=== PATIENT | male | born 1940 | race Caucasian/White ===

== ENCOUNTER 2016-09-01 07:08 | Inpatient (IN) | payer MEDICARE, OTHER ==
[2016-09-01] VITALS (15 sets, daily range): BP systolic 105–132; BP diastolic 34–66; PULSE 32–59; RESP 15–20; TEMP 97.4–98.3; O2SAT 90–99
[~2016-09-01] VITALS: Ht 175.3 cm; Wt 96.3 kg
[~2016-09-01 07:08] MED LIST: CYAN1000P IM; FURO1TAB60 PO; HYDR25TA5 PO; KLYTECL PO; LEVO.05 PO; LISI-515 PO; METF1000 PO; METO25TA3 PO; OXYGENTANK NAS.CANULA; PANT40TA3 PO; PRAD150C PO; SIMVPOW PO
[2016-09-01] MEDS ORDERED: SODIUM CHLOR 0.9% 1000 ML INJ 1,000 ML IV SCH (07:45)
[2016-09-01 08:35] LABS: AUTOMATED NEUTROPHIL # 6.9 TH/MM3 (1.8-7.7); BASOPHIL # 0.1 TH/MM3 (0-0.2); EOSINOPHIL # 0.1 TH/MM3 (0-0.4); EOSINOPHIL % 1.7 % (0.0-4.0); HEMATOCRIT 30.8 % (39.0-51.0); LYMPH % 8.3 % (9.0-44.0); LYMPHOCYTE # 0.7 TH/MM3 (1.0-4.8); MEAN CELL VOLUME 73.5 FL (80.0-100.0); MEAN CORPUSCULAR HEMOGLOBIN 22.8 PG (27.0-34.0); MONO % 7.8 % (0.0-8.0); NEUT % 81.2 % (16.0-70.0); PLATELET COUNT 225 TH/MM3 (150-450); RED BLOOD COUNT 4.19 MIL/MM3 (4.50-5.90); RED CELL DISTRIBUTION WIDTH 21.3 % (11.6-17.2); WHITE BLOOD COUNT 8.5 TH/MM3 (4.0-11.0)
[2016-09-01 08:38] LABS: HEMO FLAGS AUTO DIFF
[2016-09-01 08:44] LABS: INTERNATIONAL NORMALIZED RATIO 1.3 RATIO; PROTHROMBIN TIME - PATIENT 14.6 SEC (9.8-11.6)
[2016-09-01 08:53] LABS: POTASSIUM 4.2 MEQ/L (3.5-5.1)
[2016-09-01 09:20] LABS: PLATELET ESTIMATE SMEAR NORMAL (NORMAL); PLATELET MORPHOLOGY NORMAL (NORMAL); SCAN/DIFF AUTO DIFF CONFIRMED
[2016-09-01 09:21] LABS: OVALOCYTES 1+ (NORMAL)
[2016-09-01] MEDS ORDERED: MIDAZOLAM HCL 5 MG/5 ML VIAL ONE (10:21)
[2016-09-01] MEDS ORDERED: fentaNYL CITRATE 250 MCG/5 ML AMP ONE (10:22)
[2016-09-01] MEDS ORDERED: VERAPAMIL INJ 10 MG/4 ML VIAL ONE (10:22)
[2016-09-01] MEDS ORDERED: SODIUM CHLORIDE 0.9% FLUSH 5 ML FLUSH FLUSH PRN (10:45)
[2016-09-01] MEDS ORDERED: ONDANSETRON HCL 4 MG/2 ML VIAL IVP PRN (10:45)
[2016-09-01] MEDS ORDERED: NALOXONE HCL 0.4 MG/ML AMP IV PRN (10:45)
[2016-09-01] MEDS ORDERED: HEPARIN SODIUM - IV 10,000 UNITS/10 ML VIAL ONE (11:02)
[2016-09-01] MEDS ORDERED: ceFAZolin 2 GM PREMIX 50 ML ONE (11:21)
[2016-09-01] MEDS ORDERED: LABETALOL HCL 100 MG/20 ML VIAL ONE (11:22)
--- NOTE | 2016-09-01 11:38 | PD.RAD ---
Post Procedure Progress Note Pre Procedure Diagnosis: (1) Left carotid stenosis Post Procedure Diagnosis: (1) Left carotid stenosis Procedure Date: Sep 01, 2016 Supervising Radiologist: Dallin Rondon Assisting Radiologist: Zev Mcmillan MD Proceduralist/Assist: Boogie Forbes, RT(R), RT Dina(R)() Plan of Activity Patient to Unit: Nursing Unit Patient Condition: Good See PACS Report for procedural detail/treatment Vascular-Arterial Procedure Procedure 1 Procedure Site: Left Carotid Access Access Site(s): Right Femoral Artery Closure Site(s): Right vascular closure device Dallin Rondon MD Sep 01, 2016 11:38
[2016-09-01] MEDS ORDERED: ACETAMINOPHEN 325 MG TAB PO PRN (11:45)
[2016-09-01] MEDS ORDERED: oxyCODONE/ACETAMINOPHEN 5 MG/325 MG TAB PO PRN (11:45)
[2016-09-01] MEDS ORDERED: IODIXANOL 320 MG/ML 50 ML VIAL (for RAD SPEC) I-ARTERIAL ONE (12:27)
--- NOTE | 2016-09-01 17:06 | RADRPT ---
EXAM DATE/TIME: 09/01/2016 00:00 [facility] COMPARISON: No previous studies available for comparison. INDICATIONS : Patient with left carotid stenosis in need of cerebral angiogram with possible interventions. MEDICAL HISTORY : 1.HTN 2.DM 3.Head and neck cancer 4.COPD 5.Sleep apnea 6.Peripheral neuropathy 7.Adenocarcinoma of the lung stage 1 8.AFIB SURGICAL HISTORY : 1.Left lower lobectomy 2.Cataract surgery 3.TURP ENCOUNTER: Initial ACUITY: 3 months PAIN SCORE: 0/10 FLUORO TIME: 11.4 minutes ACCESS SITE: Right Femoral artery SEDATION TIME: 60 minutes CONTRAST: 35 cc Visipaque (iodixanol) MEDICATION(S): 1.) 2.5 mg midazolam (Versed) IV 2.) 150 mcg fentanyl (Sublimaze) IV DEVICE(S): 1.) Left internal carotid artery 6mm SpideRX embolic protection 2.) Left internal carotid artery 4mm x 40mm Edgar MANAGER MINING balloon 3.) Left internal carotid artery 8.>6mm x 40mm Protege' stent (self expanding) 4.) Left internal carotid artery 6mm x 20mm Edgar [employer]ING balloon 5.) Right 6F Angio-Seal PROCEDURE : 1. Ultrasound guided puncture of the right common femoral artery. 2. Angiography of the right common femoral artery prior to closure device. 3. Conscious sedation with continuous EKG and oximetry monitoring. 4. Percutaneous closure of the femoral artery. 5. Angiography of the left common carotid artery 6. angioplasty and stenting of the left common carotid artery The risks, benefits and alternatives to the procedure were explained and verbal and written consent w as obtained. The site was prepped in sterile fashion. Full sterile technique was used, including ca p, mask, sterile gloves and gown and a large sterile sheet. Hand hygiene and 2% chlorhexidine and/or betadine/alcohol prep was utilized per protocol for cutaneous antisepsis. The skin and subcutaneous tissues were infiltrated with local anesthetic solution. With ultrasound and fluoroscopic guidance the right common femoral artery was punctured and a vascula r sheath was placed. Angiography of the common femoral artery was performed for evaluation prior to p ercutaneous closure device placement. The patient has a type 1 aortic arch. Examination of the carotid artery demonstrates the lesion to be in the left internal carotid artery. Visible thrombus is not present. Ulceration is not present. The re is no calcification present. The lesion length is 20 millimeters. The minimal luminal diameter is one millimeters. The diameter of the distal internal carotid artery for reference is 5 millimeters. T he percent stenosis by NASCET criteria is 80 %. Angiography of the left common carotid artery was performed with placement of a RUPERT 2 catheter. Obliqu e runs were obtained over the bifurcation. AP and lateral obtained over the head and neck. No tandem lesions are identified. After heparinization a sheath was placed in the left common carotid artery. A guidewire was advanced into the internal carotid artery and a 6 mm vascular filter was placed. Angioplasty was performed wit h a 4 mm balloon and subsequent to this the prescribed stent was placed. Repeat angioplasty was perfo rmed using a 6 mm balloon. The vascular filter was retrieved and angiography demonstrates no residual stenosis and a normal intracranial circulation. The puncture site was closed with a Perclose suture mediated closure device. The patient tolerated t he procedure well and there were no complications. Conscious sedation was performed with the prescribed dosages and duration as above. EKG and oximetry remained stable throughout the procedure. CONCLUSION: 1. Uncomplicated carotid artery stent placement as above. 2. Ultrasound examination at 6, 12, 18 and 24 months following procedure should be performed to evalu ate stent patency. Dallin Rondon MD on September 01, 2016 at 17:00 Board Certified Radiologist. This report was verified electronically.
[2016-09-01] MEDS ORDERED: FUROSEMIDE 40 MG TAB PO SCH ×2 (18:00)
[2016-09-01] MEDS: FUROSEMIDE 40 MG TAB PO SCH (18:00)
[2016-09-01] MEDS ORDERED: METOPROLOL TARTRATE 25 MG TAB PO SCH (21:00)
[2016-09-01] MEDS: SODIUM CHLORIDE 0.9% FLUSH 5 ML FLUSH FLUSH SCH (21:00)
--- NOTE | 2016-09-01 21:35 | HHI.HP ---
HPI Service [facility] Primary Care Physician Goyo Pat DO Admission Diagnosis Diagnoses: Travel History International Travel<30 Days: No Contact w/Intl Traveler <30 Da: No Traveled to Known Affected Are: No History of Present Illness This is a 76-year-old male patient of Dr. Pat. The patient has a history of symptomatic left-sided carotid stenosis. He was brought in today September 01, 2016 to the radiology department for left carotid stenting. This was performed by Dr. Rondon. Postoperatively he had problems with bradycardia and some tachycardia. Request from radiology was obtained by the undersigned to admit the patient below his labile heart rate. The patient was seen by the undersigned in the radiology recovery unit. He is alert and verbal. He wants to go home. He is mildly confused. The case was discussed with his family at his bedside including his son and his daughter. Blood pressure has been stable. The patient denies any pain. Review of Systems Other 10 systems reviewed otherwise negative Past Family Social History Past Medical History Diabetes Peripheral neuropathy GI bleed Atrial fibrillation Hyperlipidemia Hypertension Lung cancer Throat cancer Chemotherapy Radiation Past Surgical History Left-sided lobectomy for lung cancer Reported Medications Reported Meds & Active Scripts Active Effervescent Potassium Chloride 25 Meq (Potassium Bicarb/Potassium Chloride) 25 Meq Tab 25 Meq PO DAILY Pantoprazole (Pantoprazole Sodium) 40 Mg Tab 40 Mg PO DAILY Lasix (Furosemide) 40 Mg Tab 20 Mg PO BID@,18 Cyanocobalamin Inj (Cyanocobalamin) 1,000 Mcg/Ml Inj 1,000 Mcg IM MONTHLY Reported Hydrochlorothiazide 25 Mg Tab 25 Mg PO DAILY Lisinopril 20 Mg Tab 20 Mg PO DAILY Pradaxa (Dabigatran) 150 Mg Cap 150 Mg PO BID Allergies: Coded Allergies: No Known Allergies (Unverified , 09/01/16) Family History Reviewed and noncontributory Social History No current smoking alcohol or illicit drug use Physical Exam Vital Signs Vital Signs Date Time Temp Pulse Resp B/P Pulse Ox O2 Delivery O2 Flow Rate FiO2 09/01/16 20:18 97 Nasal Cannula 2.00 09/01/16 19:34 99 Nasal Cannula 2.00 09/01/16 19:00 98.2 59 16 132/54 99 09/01/16 18:30 56 09/01/16 18:30 99 Nasal Cannula 2.00 09/01/16 15:32 98 Nasal Cannula 2.00 09/01/16 15:28 32 09/01/16 15:26 98.3 45 15 122/55 98 09/01/16 13:10 34 18 120/54 92 09/01/16 12:40 42 18 105/48 95 09/01/16 12:25 36 17 115/34 92 09/01/16 12:05 40 17 118/60 95 09/01/16 11:50 97.4 45 16 114/54 95 09/01/16 08:00 90 Room Air 09/01/16 07:28 97.5 55 20 116/57 90 Physical Exam GENERAL: This is a pleasant, elderly, well-nourished, well-developed patient, in no apparent distress. SKIN: No rashes, ecchymoses or lesions. Cool and dry. HEAD: Atraumatic. Normocephalic. No temporal or scalp tenderness. EYES: Pupils equal round and reactive. Extraocular motions intact. No scleral icterus. No injection or drainage. ENT: Nose without bleeding, purulent drainage or septal hematoma. Throat without erythema, tonsillar hypertrophy or exudate. Uvula midline. Airway patent. NECK: Trachea midline. No JVD or lymphadenopathy. Supple, nontender, no meningeal signs. CARDIOVASCULAR: Irregular RESPIRATORY: Clear to auscultation. Breath sounds equal bilaterally. No wheezes , rales, or rhonchi. GASTROINTESTINAL: Abdomen soft, non-tender, nondistended. No hepato-splenomegaly , or palpable masses. No guarding. MUSCULOSKELETAL: Extremities without clubbing, cyanosis, or edema. No joint tenderness, effusion, or edema noted. No calf tenderness. Negative Homans sign bilaterally. NEUROLOGICAL: Awake and alert. Cranial nerves II through XII intact. Motor and sensory grossly within normal limits. Five out of 5 muscle strength in all muscle groups. Normal speech. Laboratory Laboratory Tests Test 09/01/16 07:50 White Blood Count 8.5 Red Blood Count 4.19 Hemoglobin 9.6 Hematocrit 30.8 Mean Corpuscular Volume 73.5 Mean Corpuscular Hemoglobin 22.8 Mean Corpuscular Hemoglobin 31.0 Concent Red Cell Distribution Width 21.3 Platelet Count 225 Mean Platelet Volume 8.1 Neutrophils (%) (Auto) 81.2 Lymphocytes (%) (Auto) 8.3 Monocytes (%) (Auto) 7.8 Eosinophils (%) (Auto) 1.7 Basophils (%) (Auto) 1.0 Neutrophils # (Auto) 6.9 Lymphocytes # (Auto) 0.7 Monocytes # (Auto) 0.7 Eosinophils # (Auto) 0.1 Basophils # (Auto) 0.1 CBC Comment AUTO DIFF Differential Comment AUTO DIFF CONFIRMED Platelet Estimate NORMAL Platelet Morphology Comment NORMAL Ovalocytes 1+ Prothrombin Time 14.6 Prothromb Time International 1.3 Ratio Activated Partial 45.0 Thromboplast Time Sodium Level 135 Potassium Level 4.2 Chloride Level 100 Carbon Dioxide Level 24.0 Anion Gap 11 Blood Urea Nitrogen 20 Creatinine 1.07 Estimat Glomerular Filtration 67 Rate Random Glucose 137 Calcium Level 8.8 Result Diagram: 09/01/16 0750 09/01/16 0750 Assessment and Plan Assessment and Plan Assessment Critical/symptomatic left carotid stenosis Left carotid stenting on 09/01/16 Labile heart rate History of diabetes atrial fibrillation on anticoagulation GI bleed Anxiety Management Admit to cardiac telemetry Resume home medications Pain control Accu-Cheks Sliding scale Discussed with family Discussed with patient Discussed with nurse Physician Certification 2 Midnight Certification Type: Admission for Inpatient Services Order for Inpatient Services The services are ordered in accordance with Medicare regulations or non- Medicare payer requirements, as applicable. In the case of services not specified as inpatient-only, they are appropriately provided as inpatient services in accordance with the 2-midnight benchmark. Estimated LOS (days): 2 days is the estimated time the patient will need to remain in the hospital, assuming treatment plan goals are met and no additional complications. Post-Hospital Plan: Home Ida Hugo MD Sep 01, 2016 21:35
[2016-09-02] VITALS (11 sets, daily range): BP systolic 124–141; BP diastolic 52–63; PULSE 47–75; RESP 14–20; TEMP 98.4–98.9; O2SAT 95–100
[2016-09-02 06:14] LABS: AUTOMATED NEUTROPHIL # 6.9 TH/MM3 (1.8-7.7); BASOPHIL # 0.1 TH/MM3 (0-0.2); BASOPHIL % 0.7 % (0.0-2.0); EOSINOPHIL % 0.5 % (0.0-4.0); HEMATOCRIT 27.1 % (39.0-51.0); LYMPH % 6.8 % (9.0-44.0); LYMPHOCYTE # 0.6 TH/MM3 (1.0-4.8); MEAN CELL VOLUME 73.4 FL (80.0-100.0); MEAN CORPUSCULAR HEMOGLOBIN 22.6 PG (27.0-34.0); MEAN CORPUSCULAR HGB CONC 30.8 % (32.0-36.0); MONO % 7.1 % (0.0-8.0); NEUT % 84.9 % (16.0-70.0); PLATELET COUNT 222 TH/MM3 (150-450); RED CELL DISTRIBUTION WIDTH 21.1 % (11.6-17.2); WHITE BLOOD COUNT 8.1 TH/MM3 (4.0-11.0)
[2016-09-02 06:31] LABS: HEMO FLAGS AUTO DIFF
[2016-09-02 06:41] LABS: BICARBONATE 24.5 MEQ/L (21.0-32.0); POTASSIUM 4.1 MEQ/L (3.5-5.1)
[2016-09-02 07:49] LABS: OVALOCYTES 1+ (NORMAL); PLATELET ESTIMATE SMEAR NORMAL (NORMAL); PLATELET MORPHOLOGY NORMAL (NORMAL); SCAN/DIFF AUTO DIFF CONFIRMED
--- NOTE | 2016-09-02 08:55 | MH ---
cc: PAWEL SAEED MD DATE OF ADMISSION: 09/01/2016 DATE OF : 1940 REASON FOR ADMISSION 1. Status post left carotid stent. 2. Bradycardia. HISTORY OF PRESENT ILLNESS This is a pleasant 75-year-old white male who has had several medical issues for the past year. He is recovering from a left lower lobe lobectomy that was done in December of 2015. He also was in the hospital back in July of 2016 for GI bleed. The patient was doing some followup x-rays and tests and an x-ray that was done noted a severe left carotid stenosis. The patient was then brought in to the hospital to have a carotid stent placed today, 09/01/2016. He is post his stenting procedure and is currently in the Intensive Care Unit for monitoring. The patient is currently resting in the bed. He is alert, responsive and is on bedrest for six hours post his procedure. The patient was noting some dizziness back in July when he was treated for a GI bleed and ulcers. The patient and family are now thinking that some of that dizziness may have been caused from this blocked carotid artery; that is unknown at this time. The patient is on Pradaxa and Protonix. He takes his other routine medicines as prescribed. He denies any chest pain, no shortness of breath, no headache, no nausea, no vomiting, no diarrhea, no constipation. He was a former smoker but quit 5-6 years ago. The patient is talkative and interacting without any issues. The patient denies any fever, chills. Heart monitor currently shows a heart rate in the 30s and 40s. The patient is atrial fib, slow ventricular response. PAST MEDICAL HISTORY 1. Head and neck cancer 2009. 2. Adenocarcinoma of the lung with left lower lobe lobectomy December,. 3. Hypertension. 4. COPD. 5. Atrial fib. 6. Diabetes mellitus 2. 7. Obstructive sleep apnea. 8. Peripheral neuropathy. PAST SURGICAL HISTORY 1. Left lower lobe lobectomy. 2. Cataract surgery. 3. TURP. ALLERGIES NO KNOWN. MEDICATIONS Reconciled, include - 1. Simvastatin. 2. Metformin. 3. Metoprolol. 4. Pradaxa. 5. Lisinopril. 6. Hydrochlorothiazide. These are the medicines he was taking back in July of 2016. SOCIAL HISTORY History of heavy smoking. No history of alcohol or illicit drug use. The patient has a son and [id number]-taz who are at the patient's bedside. The patient is . Lives half the time in [facility] and half the time he is back in the [facility]. He states that he has been here due to his health for the past year. FAMILY HISTORY Diabetes, [place], cancer. REVIEW OF SYSTEMS A 12-point review was done. Positives seen are his bradycardia, status post left carotid stent. Other systems otherwise negative. PHYSICAL EXAMINATION GENERAL: This is a [id number]-male resting in the bed with no acute distress. He is a fairly good historian. VITAL SIGNS: SKIN: Pale, slightly dusky but warm and dry. HEENT: Atraumatic, normocephalic. PERRLA at 2. No icteric sclerae. Mucous membranes are pale pink and moist. NECK: Supple. No JVD. CARDIOVASCULAR: Slow, slightly irregular rate and rhythm. Has a soft systolic murmur grade 2/6 at the lower left sternal border. He has trace pedal edema. His pulses are intact. PULMONARY: Essentially clear anteriorly and posteriorly with no wheezes, rales or rhonchi. ABDOMEN: Abdomen is round, mild obesity, soft, nontender, nondistended. Active bowel sounds. MUSCULOSKELETAL: He moves his extremities with purpose. He has an equal hand parking technician. Right incision status post carotid stent placement, clean, dry and intact. NEUROLOGIC: historian. PSYCHIATRIC: Mood and judgment and insight are normal. DIAGNOSTIC DATA On 09/01/2016: WBC count 8.5, RBC 4.19, hemoglobin 9.6, hematocrit 30.8, platelet count 225, neutrophils 81.2, lymphocytes 8.3, 1+ ovalocytes. PT/INR 1.3. Chemistry: Sodium 135, potassium 4.2, chloride 100, carbon dioxide 24, anion gap 11, BUN 20, creatinine 1.07, random glucose 137. ASSESSMENT 1. Dysrhythmia with bradycardia. 2. Acute kidney injury with dehydration. 3. Atrial fib chronic with slow ventricular response. 4. Left carotid stenosis. The patient is status post left carotid stent. 5. Diabetes mellitus type 2. 6. Recent lung cancer left lower lobe. 7. GERD. 8. Hyponatremia. 9. Hypertension. PLAN 1. Monitor this patient's labs and vital signs with special attention to his bradycardia. 2. The patient has been on Lopressor and also was given Labetalol for hypertension when having his procedure this a.m. The patient is being monitored in the Cardiac Intensive Care Unit and is currently asymptomatic from any dizziness, chest pain, shortness of breath. He had a right groin incision for his stent placement. He is on bedrest for six hours without bending his leg, and that site has a pressure dressing and it is clean, dry and intact. 3. His activity is bedrest. 4. Medications have been reconciled with special attention to his blood pressure medicines. 5. He is on an 1800 calorie ADA diet. 6. His vital signs are q.1 to q.4 depending on the need. 7. He will receive labs in the morning. 8. He has SCDs. 9. DVT prophylaxis. On Pradaxa which will be evaluated for when it can be started back since he is status post procedure. 10. PUD. On Protonix. We will follow his needs. Dictated by: NATHALY Moreno MD FLAVIA Macias/KEYA /3:38 PM /8:51 AM
[2016-09-02] MEDS ORDERED: POTASSIUM CHLORIDE 25 MEQ EFFERVESCENT TAB PO SCH (09:00)
[2016-09-02] MEDS ORDERED: DABIGATRAN ETEXILATE 150 MG CAP PO SCH (09:00)
[2016-09-02] MEDS ORDERED: PANTOPRAZOLE SOD 40 MG DELAYED RELEASE TAB PO SCH (09:00)
[2016-09-02] MEDS ORDERED: PRAVASTATIN SOD 20 MG TAB PO SCH (09:00)
[2016-09-02] MEDS ORDERED: LISINOPRIL 20 MG TAB PO SCH (09:00)
[2016-09-02] MEDS ORDERED: HYDROCHLOROTHIAZIDE 25 MG TAB PO SCH (09:00)
[2016-09-02] MEDS: SODIUM CHLORIDE 0.9% FLUSH 5 ML FLUSH FLUSH SCH (09:04)
[2016-09-02] MEDS: FUROSEMIDE 40 MG TAB PO SCH (09:05)
--- NOTE | 2016-09-02 11:09 | HHI.PR ---
Subjective Interval History Alert, oriented, heart rate has been stable overnight, wants to go home, ambulating around the mirza Review of Systems Constitutional Constitutional Remarks 10 systems reviewed otherwise negative Vitals/Results Intake & Output 09/01/16 09/01/16 09/02/16 15:00 23:00 07:00 Intake Total 500 ml 360 ml Output Total 200 ml 725 ml Balance 300 ml -365 ml Intake Oral 450 ml 360 ml IV Total 50 ml Output Urine Total 200 ml 725 ml Stool Total 0 ml # Bowel Movements 0 Vital Signs Vital Signs Date Time Temp Pulse Resp B/P Pulse Ox O2 Delivery O2 Flow Rate FiO2 09/02/16 07:29 98 Nasal Cannula 2.00 09/02/16 06:00 57 09/02/16 05:00 63 09/02/16 04:00 65 09/02/16 03:00 98.7 47 14 141/63 95 09/02/16 03:00 95 Nasal Cannula 2.00 09/02/16 03:00 47 09/02/16 02:00 49 09/02/16 01:00 53 09/02/16 00:00 50 09/01/16 23:00 47 09/01/16 23:00 97 Nasal Cannula 2.00 09/01/16 23:00 98.1 47 16 129/66 97 09/01/16 22:00 40 09/01/16 21:00 41 09/01/16 20:18 97 Nasal Cannula 2.00 09/01/16 20:00 55 09/01/16 19:34 99 Nasal Cannula 2.00 09/01/16 19:00 59 09/01/16 19:00 98.2 59 16 132/54 99 09/01/16 18:30 56 09/01/16 18:30 99 Nasal Cannula 2.00 09/01/16 15:32 98 Nasal Cannula 2.00 09/01/16 15:28 32 09/01/16 15:26 98.3 45 15 122/55 98 09/01/16 13:10 34 18 120/54 92 09/01/16 12:40 42 18 105/48 95 09/01/16 12:25 36 17 115/34 92 09/01/16 12:05 40 17 118/60 95 09/01/16 11:50 97.4 45 16 114/54 95 CBC/BMP: 09/02/16 0540 09/02/16 0540 Lab Results Laboratory Tests Test 09/02/16 05:40 White Blood Count 8.1 TH/MM3 Red Blood Count 3.70 MIL/MM3 Hemoglobin 8.4 GM/DL Hematocrit 27.1 % Mean Corpuscular Volume 73.4 FL Mean Corpuscular Hemoglobin 22.6 PG Mean Corpuscular Hemoglobin 30.8 % Concent Red Cell Distribution Width 21.1 % Platelet Count 222 TH/MM3 Mean Platelet Volume 8.5 FL Neutrophils (%) (Auto) 84.9 % Lymphocytes (%) (Auto) 6.8 % Monocytes (%) (Auto) 7.1 % Eosinophils (%) (Auto) 0.5 % Basophils (%) (Auto) 0.7 % Neutrophils # (Auto) 6.9 TH/MM3 Lymphocytes # (Auto) 0.6 TH/MM3 Monocytes # (Auto) 0.6 TH/MM3 Eosinophils # (Auto) 0.0 TH/MM3 Basophils # (Auto) 0.1 TH/MM3 CBC Comment AUTO DIFF Differential Comment AUTO DIFF CONFIRMED Platelet Estimate NORMAL Platelet Morphology Comment NORMAL Ovalocytes 1+ Sodium Level 136 MEQ/L Potassium Level 4.1 MEQ/L Chloride Level 101 MEQ/L Carbon Dioxide Level 24.5 MEQ/L Anion Gap 11 MEQ/L Blood Urea Nitrogen 23 MG/DL Creatinine 1.16 MG/DL Estimat Glomerular Filtration 61 ML/MIN Rate Random Glucose 158 MG/DL Calcium Level 8.5 MG/DL Physical Exam General General Appearance: Well Nourished, No Acute Distress, Comfortable Ears & Nose Ears & Nose Exam: Nasal Mucosa [place] Throat Throat Exam: Oral Mucosa [place] & Moist Neck Neck Exam: Trachea Midline Pulmonary Resp Exam: Breath Sounds Equal, No Distress Cardiology CV Exam: Good Perfusion, Irregular Gastrointestinal/Abdomen GI Exam: Non-Tender, Bowel Sounds Present Musculoskeletal MS Exam: Normal Gait, Normal Tone Integumentary Skin Exam: Warm, Dry Neurologic Neuro Exam: Awake, Oriented Psychiatric Psych Exam: Appropriate Responses Assessment/Plan Assessment/Plan ASSESSMENT 1. Dysrhythmia with bradycardia. 2. Acute kidney injury with dehydration. 3. Atrial fib chronic with slow ventricular response. 4. Left carotid stenosis. The patient is status post left carotid stent. 5. Diabetes mellitus type 2. 6. Recent lung cancer left lower lobe. 7. GERD. 8. Hyponatremia. 9. Hypertension Management The patient stabilized earlier than expected Discharge home today Continue home medications case discussed with his primary physician Dr. Pat Case discussed with patient and his family Case discussed with nurse . Ida Hugo MD Sep 02, 2016 11:09
== END 2016-09-02 14:10 | disposition home or self-care (01) | DRG 253 ==
LOC: HROP 07:08 → HRIP 07:09 → HROP 10:46 → HCVR 10:47
PROVIDERS: ADMIT Surgery Vascular Surgery; ATTEND Surgery Vascular Surgery
PROC: 037L3DZ Dilation of Left Internal Carotid Artery with Intraluminal Device, Percutaneous Approach (ICD-10-PCS; principal; 2016-09-01)
PROC: B41F1ZZ Fluoroscopy of Right Lower Extremity Arteries using Low Osmolar Contrast (ICD-10-PCS; 2016-09-01)
PROC: B3141ZZ Fluoroscopy of Left Common Carotid Artery using Low Osmolar Contrast (ICD-10-PCS; 2016-09-01)
DX: R00.1 Bradycardia, unspecified (principal); N17.9 Acute kidney failure, unspecified; G62.9 Polyneuropathy, unspecified; E87.1 Hypo-osmolality and hyponatremia; J44.9 Chronic obstructive pulmonary disease, unspecified; I65.22 Occlusion and stenosis of left carotid artery; E11.9 Type 2 diabetes mellitus without complications; I10 Essential (primary) hypertension; R00.0 Tachycardia, unspecified; E78.5 Hyperlipidemia, unspecified; I48.2 Chronic atrial fibrillation; F41.9 Anxiety disorder, unspecified; G47.33 Obstructive sleep apnea (adult) (pediatric); E86.0 Dehydration; K21.9 Gastro-esophageal reflux disease without esophagitis; Z79.01 Long term (current) use of anticoagulants; Z85.118 Personal history of other malignant neoplasm of bronchus and lung; Z85.819 Personal history of malignant neoplasm of unspecified site of lip, oral cavity, and pharynx; Z87.891 Personal history of nicotine dependence; Z90.2 Acquired absence of lung [part of]; Z92.21 Personal history of antineoplastic chemotherapy
CPT/HCPCS: 37215; 61630; 76937; 80048; 85025; 85610; 85730; 99152; 99153; C1725; C1760; C1769; C1876; C1884; C1887; C1894; G0269; J0690; J1644; J2250; J3010; J7030; Q9967

== ENCOUNTER 2016-09-13 14:18 | Day surgery (SDC) | payer MEDICARE, OTHER ==
[~2016-09-13 14:18] MED LIST changes: -LEVO.05 PO; -METF1000 PO; -METO25TA3 PO; -OXYGENTANK NAS.CANULA; -SIMVPOW PO
[2016-09-13 14:34] VITALS: BP 157/72; PULSE 65; RESP 20; TEMP 98.3; O2SAT 94
[2016-09-13] MEDS ORDERED: CLOP75TA PO (14:36)
[2016-09-13] MEDS ORDERED: METF1000 PO (14:36)
[2016-09-13] MEDS ORDERED: SIMV10TA PO (14:36)
[2016-09-13] MEDS ORDERED: ASPI-147 PO (14:36)
[2016-09-13 15:05] VITALS: BP 157/72; PULSE 65; RESP 20; TEMP 98.3; O2SAT 94
--- NOTE | 2016-09-16 16:16 | RADRPT ---
EXAM DATE/TIME: 09/13/2016 00:00 [facility] COMPARISON : INDICATIONS : FOLLOW UP CAROTID STENT OBJECTIVE: Temperature: 98.3 Heart Rate: 65 Blood Pressure: 157/72 Respiratory: 20 Oximetry: 94 PNEUMONIA VACCINE: NO HISTORY OF PRESENT ILLNESS: The patient is a 76-year-old who underwent stenting of the left internal carotid origin. The patient has well post procedure with no procedural complication. The patient has no current complaints at thi s time. PAST MEDICAL HISTORY : 1. NEUROPATHY IN FEET 2. ATRIAL FIBRILLATION 3. Hypertension. 4. HYPERCHOLESTEROLEMIA 5. SLEEP APNEA 6. THROAT CANCER Diabetes mellitus type 2. PAST SURGICAL HISTORY : 1. LEFT LOBECTOMY SOCIAL HISTORY : ALLERGIES: 1. NKDA MEDICATIONS: LISINOPRIL 10 mg q.d. B-12 INJECTION 1000 mcg FUROSEMIDE 20 mg b.i.d. PANTOPRAZOLE 40 mg q.d. CLOPIDOGREL 75 mg q.d. METFORMIN 1000 mg b.i.d. SIMVASTATIN 10 mg q.d. ECOTRIN 81 mg q.d. PHYSICAL EXAMINATION: The patient is neurologically intact with no current complaints. The right lower extremity is warm. ASSESSMENT: Uncomplicated stent placement across the left internal carotid origin. The patient has done very well post procedure. He is currently on Plavix. PLAN: Patient was advised to maintain his Plavix in definitely and followup with Dr. Pat for medicatio n refills. TIME SPENT: 15 minutes. Zackery Lemos MD on September 16, 2016 at 16:11 Board Certified Radiologist. This report was verified electronically.
== END 2016-09-13 15:26 | disposition home or self-care (01) ==
LOC: HROP 14:18 → HRIP 14:21 → HROP 15:26
PROVIDERS: ATTEND Family Medicine
DX: I65.22 Occlusion and stenosis of left carotid artery (principal)

== ENCOUNTER 2016-11-04 06:39 | Day surgery (SDC) | payer MEDICARE, OTHER ==
[2016-11-04] VITALS (8 sets, daily range): BP systolic 119–162; BP diastolic 66–117; PULSE 65–82; RESP 20–21; TEMP 97.6–98.7; O2SAT 92–97
[~2016-11-04 06:39] MED LIST changes: +ASPI-147 PO; +CLOP75TA PO; -HYDR25TA5 PO; -KLYTECL PO; +METF1000 PO; -PRAD150C PO; +SIMV10TA PO
[2016-11-04] MEDS ORDERED: LEVO50TA4 PO (07:11)
[2016-11-04] MEDS ORDERED: LIDOCAINE 1%/EPINEPHrine 1:100,000 SOLN 20 ML VIAL ONE ×2 (07:32→10:58)
[2016-11-04] MEDS ORDERED: CHLORHEXIDINE GLUCONATE 2 % 1 PACK (2 CLOTHS) TOPICAL SCH (08:15)
[2016-11-04] MEDS ORDERED: POVIDONE IODINE 5% (ANTISEPSIS KIT) 4 APPLICATIONS EACH NARE SCH (08:15)
[2016-11-04] MEDS ORDERED: ceFAZolin 2 GM PREMIX 50 ML - implanted port/tunneled catheter insertion IV SCH (08:15)
[2016-11-04] MEDS ORDERED: VANCOMYCIN 1000 MG/NS 250 ML - implanted port/tunneled catheter IV SCH ×2 (08:15)
[2016-11-04] MEDS ORDERED: SODIUM CHLORIDE 0.9% 1000 ML IV SCH (08:15)
[2016-11-04] MEDS ORDERED: fentaNYL CITRATE 250 MCG/5 ML AMP ONE ×2 (08:33→10:40)
[2016-11-04] MEDS ORDERED: MIDAZOLAM HCL 5 MG/5 ML VIAL ONE ×2 (08:34→10:40)
--- NOTE | 2016-11-04 09:25 | PD.RAD ---
Post Procedure Progress Note Pre Procedure Diagnosis: (1) Lung cancer, lower lobe (2) Mass of left lung Post Procedure Diagnosis: (1) Mass of left lung (2) Lung cancer, lower lobe Procedure Date: Nov 04, 2016 Supervising Radiologist: Zackery Lemos Anesthesia: Local, Conscious Sedation Plan of Activity Patient to Unit: ROPU Patient Condition: Fair Additional Comments: Post left lung biopsy. No pneumothorax on follow up CT CXR pending Full report to follow See PACS Report for procedural detail/treatment Zackery Lemos MD Nov 04, 2016 09:25
[2016-11-04] MEDS ORDERED: oxyCODONE/ACETAMINOPHEN 5 MG/325 MG TAB PO PRN (09:30)
--- NOTE | 2016-11-04 11:05 | RADRPT ---
EXAM DATE/TIME: 11/04/2016 10:20 [facility] COMPARISON: CT MEDIASTINAL BIOPSY, November 04, 2016, 8:42. CHEST EXPIRATION ONLY, December 08, 2015, 10:59. INDICATIONS : Post CT guided needle biopsy, evaluate for pneumothorax MEDICAL HISTORY : Carcinoma, lung. carcinoma mediastinum and throat SURGICAL HISTORY : Lobectomy. ENCOUNTER: Subsequent ACUITY: 1 day PAIN SCORE: 0/10 LOCATION: Bilateral chest FINDINGS: Upright expiratory view of the chest was performed. No evidence pneumothorax on left side. There is blunting of the costophrenic angle on the left characteristic pleural effusion. There is crowding o f bronchopulmonary markings lower lungs, characteristic of an expiratory view. CONCLUSION: No evidence pneumothorax status post left lung biopsy. Guillermo Ceron MD on November 04, 2016 at 11:02 Board Certified Radiologist. This report was verified electronically.
[2016-11-04] MEDS ORDERED: SODIUM CHLORIDE 0.9% FLUSH 10 ML FLUSH IVF PRN (12:00)
--- NOTE | 2016-11-04 12:01 | PD.RAD ---
Post Procedure Progress Note Pre Procedure Diagnosis: (1) Lung cancer, lower lobe (2) Mass of left lung (3) Mediastinal mass (4) Tonsillar cancer Post Procedure Diagnosis: (1) Lung cancer, lower lobe (2) Mass of left lung (3) Mediastinal mass (4) Tonsillar cancer Procedure Date: Nov 04, 2016 Supervising Radiologist: Hussain Hale Proceduralist/Assist: Aparna Rankin, RT(R)(CV), Daya Barney RT(R) Anesthesia: Local, Analgesia, Conscious Sedation Plan of Activity Patient to Unit: ROPU Patient Condition: Good See PACS Report for procedural detail/treatment Central Venous Access Device Procedure 1 Right Internal Jugular Infusaport Placement single lumen [place]: 8 Findings: Extensive scar tissue in right neck region probably related to prior radiation therapy Hussain Hale MD Nov 04, 2016 12:01
--- NOTE | 2016-11-04 12:24 | RADRPT ---
EXAM DATE/TIME: 11/04/2016 08:42 [facility] COMPARISON: CHEST EXPIRATION ONLY, November 04, 2016, 10:20. CT ABDOMEN & PELVIS W CONTRAST, July 01, 2016, 9:1 5. INDICATIONS : Mediastinal lesion. History of lung cancer. SEDATION TIME: 15 minutes BIOPSY SITE: Left mediastinum MEDICATION(S): 1.) 1 mg midazolam (Versed) IV 2.) 75 mcg fentanyl (Sublimaze) IV DEVICE(S): 1.) 20 gauge Temno core biopsy needle 2.) 18 gauge Mejía blunt needle MEDICAL HISTORY : Chronic obstructive pulmonary disease. Diabetes mellitus type 2. Gastroesophageal reflux disease. Hyp ertension. SURGICAL HISTORY : Left lower lobectomy. ENCOUNTER: Initial ACUITY: 1 day PAIN SCORE: 0/10 LOCATION: Left A total of two core specimen(s) were obtained and sent to the laboratory for pathologic evaluation. PROCEDURE: 1. CT guided mediastinal biopsy. 2. Conscious sedation with continuous EKG and oximetry monitoring. 3. EKG and oximetry remained stable throughout the procedure. Prior to the procedure informed consent was obtained. Any appropriate prior imaging studies were rev iewed. Using automated exposure control and adjustment of the mA and/or kV according to patient size, radiat ion dose was kept as low as reasonably achievable to obtain optimal diagnostic quality images. The site was prepped in a sterile fashion. Full sterile technique was used, including cap, mask, svetlana rile gloves and gown and a large sterile sheet. Hand hygiene and 2% chlorhexidine and/or betadine/al cohol prep was utilized per protocol for cutaneous antisepsis. The skin and subcutaneous tissues wer e infiltrated with local anesthetic solution. With CT guidance the previously identified target was localized. A Mejía blunt needle was advanced down to the lesion in the left lung base. A total of 3 core samples were obtained with a 20 gauge Tem no biopsy gun. Adequate hemostasis was obtained with compression at the puncture site. Follow-up CT scan reveals no hemorrhage. The patient tolerated the procedure well and there were no complications. The patient was returned to the Radiology Outpatient Unit in stable condition. CONCLUSION: Uncomplicated CT guided biopsy. Zackery Lemos MD on November 04, 2016 at 12:21 Board Certified Radiologist. This report was verified electronically.
--- NOTE | 2016-11-05 11:08 | RADRPT ---
EXAM DATE/TIME: 11/04/2016 10:59 [facility] COMPARISON: No previous studies available for comparison. INDICATIONS : Mediastinal mass. 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 GI bleed 4. A fib 5. COPD 6. HTN 7. Sleep apnea SURGICAL HISTORY : 1. LLL lobectomy 2. carotid endarectomy 3. lt port ENCOUNTER: Initial ACUITY: >1 year PAIN SCORE: 0/10 FLUORO TIME: 1.1 minutes IMAGE SERIES: 1 SEDATION TIME: 60 minutes ACCESS: Right internal jugular vein SEDATION: 1.) 3.5 mg midazolam (Versed) IV 2.) 175 mcg fentanyl (Sublimaze) IV Prophylactic antibiotics were administered with appropriate pre-procedure timing. Vancomycin within 2 hours of procedure, Ancef (or alternative) within 1 hour of procedure. DEVICE: 1. 8 [place] single lumen Bard Power Port PROCEDURE : 1. Continuous pulse oximetry and EKG monitoring. 2. Intravenous conscious sedation. 3. Ultrasound guidance for venous access. 4. Fluoroscopic guided implantable central venous port placement. The patient was placed supine. The neck was prepped in sterile fashion. Full sterile technique was u sed, including cap, mask, sterile gloves and gown, and a large sterile sheet. Hand hygiene and 2% ch lorhexidine Betadine was utilized per protocol for cutaneous antisepsis with appropriate dry time for site. The skin and subcutaneous tissues were infiltrated with local anesthetic solution. Under direct ultrasound guidance, central venous access was accomplished in the targeted vessel. The ultrasound images depicting access guidance were stored and saved to PACS for permanent record. A s ubcutaneous pocket was created using blunt dissection. The port was introduced to the pocket. The c atheter tubing was fed through a subcutaneous tunnel to the venotomy site. The catheter tubing was c ut to a suitable length and then was introduced through a valved Peel-Away sheath and positioned with catheter tubing tip at the cavo-atrial junction level. The pocket incision was closed with subcutic ular Vicryl suture. Steri-Strips were applied. The port was flushed and locked with heparin solutio n per protocol. Sterile dressing was applied to the site. The patient tolerated the procedure well. Conscious sedation was performed with the prescribed dosages and duration as above in the presence of an independent trained radiology nurse to assist in the monitoring of the patient. EKG and oximetry remained stable throughout the procedure. The patient tolerated the procedure well and there were no complications. The patient was sent to post anesthesia recovery in stable condition. CONCLUSION: Uncomplicated ultrasound and fluoroscopic guided implanted central venous port catheter placement as described in detail above. An 8 [place] Power port was placed. Hussain Hale MD on November 05, 2016 at 11:07 Board Certified Radiologist. This report was verified electronically.
== END 2016-11-04 15:00 | disposition home or self-care (01) ==
LOC: HROP 06:39 → HRIP 06:46 → HROP 15:00
PROVIDERS: ATTEND Internal Medicine
DX: R91.8 Other nonspecific abnormal finding of lung field (principal); Z85.118 Personal history of other malignant neoplasm of bronchus and lung; R22.2 Localized swelling, mass and lump, trunk; C09.9 Malignant neoplasm of tonsil, unspecified; J44.9 Chronic obstructive pulmonary disease, unspecified; E11.9 Type 2 diabetes mellitus without complications; K21.9 Gastro-esophageal reflux disease without esophagitis; I10 Essential (primary) hypertension; Z85.21 Personal history of malignant neoplasm of larynx; G47.30 Sleep apnea, unspecified; I48.91 Unspecified atrial fibrillation; C34.32 Malignant neoplasm of lower lobe, left bronchus or lung
CPT/HCPCS: 32405; 36561; 71010; 76937; 77001; 77012; 88305; 99152; 99153; C1788; J0690; J1642; J2250; J3010; J3370; J7030; J7050; 88307

== ENCOUNTER 2016-11-24 06:17 | Day surgery (SDC) | payer MEDICARE, OTHER ==
[2016-11-24] VITALS (7 sets, daily range): BP systolic 129–154; BP diastolic 69–84; PULSE 50–81; RESP 20; TEMP 97.6; O2SAT 93–96
[~2016-11-24] VITALS: Ht 175.3 cm; Wt 96.4 kg
[~2016-11-24 06:17] MED LIST changes: +LEVO50TA4 PO
[2016-11-24] MEDS ORDERED: IMPLANTED VASCULAR ACCESS DEVICE/PORT - SODIUM CHLORIDE FLUSH IV FLUSH SCH (07:30)
[2016-11-24] MEDS ORDERED: SODIUM CHLOR 0.9% 1000 ML IV SCH (07:30)
[2016-11-24] MEDS ORDERED: IMPLANTED VASCULAR ACCESS DEVICE/PORT - SODIUM CHLORIDE FLUSH PRN IV FLUSH (07:30)
[2016-11-24] MEDS ORDERED: LIDOCAINE 1%/EPINEPHrine 1:100,000 SOLN 20 ML VIAL ONE (07:37)
[2016-11-24] MEDS ORDERED: MIDAZOLAM HCL 5 MG/5 ML VIAL ONE (08:02)
[2016-11-24] MEDS ORDERED: fentaNYL CITRATE 250 MCG/5 ML AMP ONE (08:02)
[2016-11-24] MEDS ORDERED: oxyCODONE/ACETAMINOPHEN 5 MG/325 MG TAB PO PRN (08:45)
--- NOTE | 2016-11-24 09:19 | RADRPT ---
EXAM DATE/TIME: 11/24/2016 08:14 [place] Corrected on: December 23, 2016; added ONE core specimen [facility] COMPARISON: CT NEEDLE BIOPSY LUNG, LEFT, December 08, 2015, 8:19. INDICATIONS : Left lung mass. SEDATION TIME: 15 minutes BIOPSY SITE: Left MEDICATION(S): 1.) 1 mg midazolam (Versed) IV 2.) 50 mcg fentanyl (Sublimaze) IV DEVICE(S): 1.) 20 gauge Temno core biopsy needle MEDICAL HISTORY : Cardiovascular disease. Hypertension. Diabetes mellitus type 2. SURGICAL HISTORY : Partial lobectomy. ENCOUNTER: Initial ACUITY: 1 day PAIN SCORE: 0/10 LOCATION: Left chest A total of one core specimen(s) were obtained and sent to the laboratory for pathologic evaluation. PROCEDURE: 1. CT guided lung biopsy. 2. Conscious sedation with continuous EKG and oximetry monitoring. 3. EKG and oximetry remained stable throughout the procedure. Prior to the procedure informed consent was obtained. Any appropriate prior imaging studies were rev iewed. Using automated exposure control and adjustment of the mA and/or kV according to patient size, radiation dose was kept as low as reasonably achievable to obtain optimal diagnostic quality images. The site was prepped in a sterile fashion. Full sterile technique was used, including cap, mask, svetlana rile gloves and gown and a large sterile sheet. Hand hygiene and 2% chlorhexidine and/or betadine/al cohol prep was utilized per protocol for cutaneous antisepsis. The skin and subcutaneous tissues wer e infiltrated with local anesthetic solution. Under CT guidance an 18 gauge blunt needle was placed down to the PET positive periaortic tissue left lung adjacent to the surgical jeb. 3 cores were obtained. The care was sent for pathology and culture. Follow-up CT scan reveals no pneumothorax. Conscious sedation was performed with the prescribed dosages and duration as above in the presence of an independent trained radiology nurse to assist in the monitoring of the patient. EKG and oximetry remained stable throughout the procedure. The patient tolerated the procedure well and there were no complications. The patient was sent to Radiology Outpatient Unit in stable condition. CONCLUSION: Uncomplicated CT guided biopsy. Pathology and culture are pending. Gareth Lemos MD FACR on November 24, 2016 at 9:16 Board Certified Radiologist. This report was verified electronically. on December 23, 2016 at 9:15 Board Certified Radiologist. This report was verified electronically.
--- NOTE | 2016-11-24 12:15 | RADRPT ---
EXAM DATE/TIME: 11/24/2016 11:23 [facility] COMPARISON: CHEST EXPIRATION ONLY, November 04, 2016, 10:20. INDICATIONS : Status post left lung biopsy. MEDICAL HISTORY : Carcinoma, lung. Stage 3 lung CA. SURGICAL HISTORY : Left lung lower lobe removed. Left carotid stent. Port placed. ENCOUNTER: Initial ACUITY: 1 day PAIN SCORE: 0/10 LOCATION: Bilateral chest FINDINGS: Sijxhm-B-Habe is in good position. There is no pneumothorax. There is stable blunting of the left c ostophrenic sulcus. CONCLUSION: There is no evidence for pneumothorax. Gareth Lemos MD FACR on November 24, 2016 at 12:06 Board Certified Radiologist. This report was verified electronically.
== END 2016-11-24 12:15 | disposition home or self-care (01) ==
LOC: HRAD 06:17 → HRIP 06:39 → HRAD 12:15
PROVIDERS: ATTEND Internal Medicine
DX: C34.92 Malignant neoplasm of unspecified part of left bronchus or lung (principal); I25.10 Atherosclerotic heart disease of native coronary artery without angina pectoris; I10 Essential (primary) hypertension; E11.9 Type 2 diabetes mellitus without complications
CPT/HCPCS: 32405; 71010; 77012; 87015; 87070; 87102; 87116; 87205; 87206; 88305; 88333; 88341; 88342; J2250; J3010

== ENCOUNTER 2016-12-15 10:52 | Emergency (ER) | payer MEDICARE, OTHER ==
[~2016-12-15] VITALS: Ht 175.3 cm; Wt 93.0 kg
[2016-12-15 10:54] VITALS: BP 129/45; PULSE 81; RESP 18; TEMP 97.8; O2SAT 100
[2016-12-15] MEDS ORDERED: KETOROLAC TROMETHAMINE 60 MG/2 ML (IM) VIAL IM ONE (11:15)
[2016-12-15] MEDS ORDERED: MORPHINE SULFATE 4 MG/ML INJ IM ONE (11:15)
[2016-12-15] MEDS ORDERED: ONDANSETRON ODT 4 MG TAB PO ONE (11:15)
[2016-12-15] MEDS ORDERED: INDO25CA PO (11:18)
[2016-12-15] MEDS ORDERED: NORC5TAB PO (11:18)
--- NOTE | 2016-12-15 11:18 | PD ---
HPI Chief Complaint: Edema Time Seen by Provider: 10:59 Travel History International Travel<30 days: No Contact w/Intl Traveler<30days: No Traveled to known affect area: No History of Present Illness HPI The patient is a 76-year-old male who presents emergency department for pain at the base of the right thumb. The patient is right-hand dominant. The patient is currently undergoing chemotherapy every 3 weeks as well as radiation therapy for non-small cell lung carcinoma. The patient has a previous history of partial left lower lobe lobectomy and was followed by his oncologist, Dr. Edwards. The patient states he had radiation therapy earlier today and they noticed at the base of the right thumb was somewhat swollen. His radiation oncologist was concerned about a DVT and sent him to the emergency department. The patient denies any history of DVT, does have a history of recent stent placement and a left carotid back in September by interventional radiology and currently takes Plavix and aspirin. He denies any swollen the right humerus, right forearm, but does note swelling of the base of the thumb. He denies any pain with flexion or extension of the wrist or supination pronation the left forearm. He denies any pain with extension of the right shoulder or abduction and adduction of the right shoulder. He denies any acute shortness of breath or history of SVC syndrome. He denies any history of gout or pseudogout. He denies any trauma to the right upper extremity. PFSH Past Medical History Hx Anticoagulant Therapy: Yes Atrial Fibrillation: Yes Heart Rhythm Problems: Yes (A fib) Cancer: Yes (Lung and throat) Cardiac Catheterization: No Cardiovascular Problems: Yes High Cholesterol: Yes Chemotherapy: Yes Cerebrovascular Accident: No Diabetes: Yes Diminished Hearing: No Endocrine: Yes Glaucoma: No Genitourinary: No Hepatitis: No Hiatal Hernia: No Hypertension: Yes Immune Disorder: No Musculoskeletal: No Neurologic: Yes (NEUROPATHY FEET/ [id number]) Psychiatric: No Reproductive: No Respiratory: Yes (lung cancer; radiation tx) Immunizations Current: Yes Radiation Therapy: Yes Sleep Apnea: Yes Thyroid Disease: No Past Surgical History Abdominal Aneurysm Repair: No Abdominal Surgery: No AICD: No Appendectomy: No Cardiac Surgery: No Cholecystectomy: No Coronary Artery Bypass Graft: No Coronary Stent: No Ear Surgery: No Endocrine Surgery: No Eye Surgery: No Genitourinary Surgery: No Gynecologic Surgery: No Joint Replacement: No Mastectomy: No Neurologic Surgery: No Oral Surgery: No Pacemaker: No Prostatectomy: No Thoracic Surgery: Yes (Left Lobectomy x 3 months) Tonsillectomy: No Tympanostomy Tube: No Valve Replacement: No Other Surgery: Yes Social History Alcohol Use: No Tobacco Use: No Substance Use: No Allergies-Medications (Allergen,Severity, Reaction): Coded Allergies: No Known Allergies (Unverified , 12/15/16) Reported Meds & Prescriptions Reported Meds & Active Scripts Active Pantoprazole (Pantoprazole Sodium) 40 Mg Tab 40 Mg PO DAILY Lasix (Furosemide) 40 Mg Tab 20 Mg PO BID@ Cyanocobalamin Inj (Cyanocobalamin) 1,000 Mcg/Ml Inj 1,000 Mcg IM MONTHLY Reported Levothyroxine (Levothyroxine Sodium) 50 Mcg Tab 50 Mcg PO DAILY Ecotrin Low Strength (Aspirin) 81 Mg Tabdr 81 Mg PO DAILY Simvastatin 10 Mg Tab 10 Mg PO DAILY Metformin (Metformin HCl) 1,000 Mg Tab 1,000 Mg PO BIDPC With meals Clopidogrel (Clopidogrel Bisulfate) 75 Mg Tab 75 Mg PO DAILY Lisinopril 20 Mg Tab 20 Mg PO DAILY Review of Systems General / Constitutional: No: Fever Cardiovascular: No: Chest Pain or Discomfort Respiratory: Positive: Other (currently undergoing chemotherapy for non-small cell lung carcinoma with previous partial left lower lobe lobectomy) Gastrointestinal: No: Nausea, Vomiting Musculoskeletal: Positive: Limited ROM, Edema, Pain Skin: No Rash Neurologic: No: Paresthesia, Sensory Disturbance Physical Exam Narrative GENERAL: Awake, alert, very pleasant 76-year-old male who appears his stated age and is in no acute respiratory distress. SKIN: Focused skin assessment warm/dry. HEAD: Atraumatic. Normocephalic. EYES: No injection or drainage. ENT: No nasal bleeding or discharge. Mucous membranes pink and moist. NECK: Trachea midline. No JVD. CARDIOVASCULAR: Port in place right chest wall. Radiation cox noted over the anterior chest and upper abdomen. GASTROINTESTINAL: Abdomen soft, non-tender, nondistended. Radiation markers noted over the upper abdomen. MUSCULOSKELETAL: The base of the right thumb is slightly swollen, tender to palpation over the MCP of the thumb on the right hand with limited ability to extend, abduct, and adduct as well as oppose secondary to pain. Mild edema over the right wrist, but no edema of the forearm or humerus noted. Positive right radial pulse. Positive for right brachial pulse. Mild edema and erythema over the MCP of the thumb on the right side. NEUROLOGICAL: Awake and alert. No obvious cranial nerve deficits. Motor grossly within normal limits. Normal speech. PSYCHIATRIC: Appropriate mood and affect; insight and judgment normal. Data Data Last Documented VS Vital Signs Date Time Temp Pulse Resp B/P Pulse Ox O2 Delivery O2 Flow Rate FiO2 12/15/16 10:54 97.8 81 18 129/45 100 MDM Medical Decision Making Medical Screen Exam Complete: Yes Emergency Medical Condition: Yes Medical Record Reviewed: Yes Differential Diagnosis Differential diagnosis includes gout, pseudogout, arthropathy, fracture, dislocation, DVT, sprain, strain, cellulitis. Narrative Course The patient's physical examination is consistent with arthropathy, possibly gout versus pseudogout, may be secondary to chemotherapy. The patient has no evidence of a DVT, there is no swelling proximal to the right wrist that affects the forearm or arm. The patient has pain with range of motion at the MCP, more consistent with arthropathy. 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 The patient will be discharged home on Indocin and [place], is advised to follow-up with his primary physician and oncologist. Return if symptoms worsen or progress. Diagnosis Primary Impression: Arthropathy Patient Instructions: General Instructions Additional Instructions: Medications as directed. Continue to take your proton pump inhibitor while taking the Indocin. Monitor for constipation. Return if symptoms worsen or progress. Follow-up with your primary physician and oncologist. Med/Other Pt SpecificInfo: Prescription(s) given Scripts Hydrocodone-Acetaminophen ([place])5-325 mg Tab1 Tab PO Q6H PRN (PAIN) #20 TAB Ref 0 Prov:Luis Arenas MD 12/15/16 Indomethacin 25 Mg Cap25 Mg PO TID 5 Days Ref 0 Take with food, milk, or antacids to decrease stomach adverse effects. Prov:Luis Arenas MD 12/15/16 Disposition: 01 DISCHARGE HOME Condition: Stable Luis Arenas MD December 15, 2016 11:18
== END 2016-12-15 11:57 | disposition home or self-care (01) ==
LOC: PHED 10:52
DX: M12.9 Arthropathy, unspecified (principal); C34.90 Malignant neoplasm of unspecified part of unspecified bronchus or lung; I48.91 Unspecified atrial fibrillation; I10 Essential (primary) hypertension; Z79.01 Long term (current) use of anticoagulants
CPT/HCPCS: 96372; 99283; J1885; J2270

== ENCOUNTER 2017-03-10 07:56 | Day surgery (SDC) | payer MEDICARE, OTHER ==
[2017-03-10] VITALS (7 sets, daily range): BP systolic 115–139; BP diastolic 58–71; PULSE 70–85; RESP 16–18; TEMP 97.4–97.7; O2SAT 92–98
[~2017-03-10] VITALS: Ht 175.3 cm; Wt 82.3 kg
[~2017-03-10 07:56] MED LIST changes: -CYAN1000P IM; +INDO25CA PO; +NORC5TAB PO
[2017-03-10] MEDS ORDERED: LIDOCAINE 1%/EPINEPHrine 1:100,000 SOLN 20 ML VIAL ONE (08:18)
[2017-03-10] MEDS ORDERED: SODIUM CHLOR 0.9% 1000 ML INJ 1,000 ML IV SCH (08:45)
[2017-03-10] MEDS ORDERED: MIDAZOLAM HCL 2 MG/2 ML VIAL ONE (09:18)
[2017-03-10] MEDS ORDERED: fentaNYL CITRATE 250 MCG/5 ML AMP ONE (09:18)
--- NOTE | 2017-03-10 09:55 | PD.RAD ---
Post CT Procedure Prog Note Pre Procedure Diagnosis: (1) Liver mass, left lobe Post Procedure Diagnosis: (1) Liver mass, left lobe Procedure Date: Mar 10, 2017 Supervising Radiologist: Zev Mcmillan Anesthesia: Local, Conscious Sedation Plan of Activity Patient to Unit: [facility]OPU Patient Condition: Fair See PACS Report for procedural detail/treatment Biopsy Imaging Guidance: CT Side: Left Biopsy Procedure: Abdominal Mass Site: left hepatic lobe Specimen: Core Biopsy Treatment Area: No post bx bleeding Zev Mcmillan MD Mar 10, 2017 09:55
[2017-03-10] MEDS ORDERED: HYDROmorphone HCL 2 MG TAB PO PRN (10:00)
--- NOTE | 2017-03-10 10:11 | RADRPT ---
EXAM DATE/TIME: 03/10/2017 09:30 [facility] COMPARISON: No previous studies available for comparison. INDICATIONS : Liver mass SEDATION TIME: minutes BIOPSY SITE: liver MEDICATION(S): 1.) 2 mg midazolam (Versed) IV 2.) 100 mcg fentanyl (Sublimaze) IV DEVICE(S): 1.) 18 gauge Temno core biopsy needle MEDICAL HISTORY : Chronic obstructive pulmonary disease. Hypertension. Carcinoma, lung. SURGICAL HISTORY : None. ENCOUNTER: Initial ACUITY: 1 day PAIN SCORE: 0/10 LOCATION: upper quadrant A total of two core specimen(s) were obtained and sent to the laboratory for pathologic evaluation. PROCEDURE: 1. CT guided liver biopsy. Prior to the procedure informed consent was obtained. Any appropriate prior imaging studies were rev iewed. Using automated exposure control and adjustment of the mA and/or kV according to patient size, radiat ion dose was kept as low as reasonably achievable to obtain optimal diagnostic quality images. DICOM format image data is available electronically for review and comparison. The site was prepped in a sterile fashion. Full sterile technique was used, including cap, mask, svetlana rile gloves and gown and a large sterile sheet. Hand hygiene and 2% chlorhexidine and/or betadine/al cohol prep was utilized per protocol for cutaneous antisepsis. The skin and subcutaneous tissues wer e infiltrated with local anesthetic solution. With CT guidance the previously identified target was localized. Biopsy was performed using the presc ribed needle as above. Adequate hemostasis was obtained with compression at the puncture site. Follow-up CT scan reveals no hemorrhage. The patient tolerated the procedure well and there were no complications. The patient was returned to the Radiology Outpatient Unit in stable condition. CONCLUSION: Uncomplicated CT guided biopsy. Zev Mcmillan MD on March 10, 2017 at 10:09 Board Certified Radiologist. This report was verified electronically.
== END 2017-03-10 14:00 | disposition home or self-care (01) ==
LOC: HRAD 07:56 → HRIP 07:57 → HRAD 14:00
PROVIDERS: ATTEND Internal Medicine
DX: C22.7 Other specified carcinomas of liver (principal); J44.9 Chronic obstructive pulmonary disease, unspecified; I10 Essential (primary) hypertension; Z85.118 Personal history of other malignant neoplasm of bronchus and lung
CPT/HCPCS: 47000; 77012; 88307; 88341; 88342; J1642; J2250; J3010; J7030

== ENCOUNTER 2017-04-29 11:55 | Inpatient (IN) | payer MEDICARE, OTHER ==
[~2017-04-29] VITALS: Ht 175.3 cm; Wt 87.6 kg
[2017-04-29 12:02] VITALS: BP 82/57; PULSE 108; RESP 27; TEMP 98.7; O2SAT 93
[2017-04-29 12:05] VITALS: BP 129/80; PULSE 130; RESP 38; TEMP 98.3; O2SAT 90
[2017-04-29 12:29] LABS: AUTOMATED NEUTROPHIL # 5.5 TH/MM3 (1.8-7.7); BASOPHIL % 0.2 % (0.0-2.0); HEMO FLAGS DIFF FINAL; LYMPH % 7.3 % (9.0-44.0); LYMPHOCYTE # 0.5 TH/MM3 (1.0-4.8); MEAN CELL VOLUME 94.6 FL (80.0-100.0); MEAN CORPUSCULAR HEMOGLOBIN 30.6 PG (27.0-34.0); MEAN CORPUSCULAR HGB CONC 32.4 % (32.0-36.0); MONO % 9.4 % (0.0-8.0); NEUT % 83.1 % (16.0-70.0); PLATELET COUNT 145 TH/MM3 (150-450); RED BLOOD COUNT 4.34 MIL/MM3 (4.50-5.90); WHITE BLOOD COUNT 6.7 TH/MM3 (4.0-11.0)
[2017-04-29 12:36] LABS: APTT (PATIENT) 37.8 SEC (24.3-30.1); INTERNATIONAL NORMALIZED RATIO 1.3 RATIO; PROTHROMBIN TIME - PATIENT 14.4 SEC (9.8-11.6)
[2017-04-29] MEDS ORDERED: SODIUM CHLOR 0.9% 1000 ML INJ 1,000 ML IV SCH (12:45)
[2017-04-29 12:46] LABS: ANION GAP 10 MEQ/L (5-15); AST (GOT) 23 U/L (15-37); BICARBONATE 24.4 MEQ/L (21.0-32.0); BLOOD UREA NITROGEN 15 MG/DL (7-18); CHLORIDE 96 MEQ/L (98-107); GLOMERULAR FILTRATION RATE 73 ML/MIN (>89); MAGNESIUM 1.2 MG/DL (1.5-2.5); POTASSIUM 4.2 MEQ/L (3.5-5.1); SODIUM (NA) 130 MEQ/L (136-145)
[2017-04-29 12:47] LABS: ALT (GPT) 11 U/L (12-78)
[2017-04-29 12:51] LABS: ALKALINE PHOSPHATASE 106 U/L (45-117); TOTAL BILIRUBIN ADULT 0.9 MG/DL (0.2-1.0)
--- NOTE | 2017-04-29 12:53 | PD ---
HPI . Sent by oncologist rule out PE Chief Complaint: Respiratory Distress Time Seen by Provider: 12:30 Travel History International Travel<30 days: No Contact w/Intl Traveler<30days: No Traveled to known affect area: No History of Present Illness HPI 76-year-old male patient presents emergency department for evaluation of increasing dyspnea. Patient has history of liver and lung cancer. He last received chemotherapy a month ago. Patient states he has been running fevers for the last couple of days and the highest the fever has been is 101. Patient referred by Dr. Edwards today to rule out a pulmonary embolism. Patient was tachycardic and hypotensive upon arrival. Patient states that he has a chronic achy pain on his left lateral thoracic region. Patient states that he has had this pain for a couple weeks. Patient complains of a chronic dry cough. Patient denies any hemoptysis or productive cough. Patient denies any abdominal pain, nausea, vomiting or diarrhea. Patient denies any hematuria or dysuria. PFSH Past Medical History Hx Anticoagulant Therapy: Yes Atrial Fibrillation: Yes Heart Rhythm Problems: Yes (A fib) Cancer: Yes (Lung and throat LIVER) Cardiac Catheterization: No Cardiovascular Problems: Yes High Cholesterol: Yes Chemotherapy: Yes Cerebrovascular Accident: No Diabetes: Yes Patient Takes Glucophage: Yes Diminished Hearing: No Endocrine: Yes Gastrointestinal Disorders: Yes (HX THROAT CA) Glaucoma: No Genitourinary: No Hepatitis: No Hiatal Hernia: No Hypertension: Yes Immune Disorder: No Musculoskeletal: No Neurologic: Yes (NEUROPATHY FEET/ [id number]) Psychiatric: No Reproductive: No Respiratory: Yes (lung cancer; radiation tx) Immunizations Current: Yes Radiation Therapy: Yes Sleep Apnea: Yes Thyroid Disease: No Past Surgical History Abdominal Aneurysm Repair: No Abdominal Surgery: No AICD: No Appendectomy: No Cardiac Surgery: No Cholecystectomy: No Coronary Artery Bypass Graft: No Coronary Stent: No Ear Surgery: No Endocrine Surgery: No Eye Surgery: No Genitourinary Surgery: No Gynecologic Surgery: No Joint Replacement: No Mastectomy: No Neurologic Surgery: No Oral Surgery: No Pacemaker: No Prostatectomy: No Thoracic Surgery: Yes (Left Lobectomy x 3 months) Tonsillectomy: No Tympanostomy Tube: No Valve Replacement: No Other Surgery: Yes Social History Alcohol Use: No Tobacco Use: No Substance Use: No Allergies-Medications (Allergen,Severity, Reaction): Coded Allergies: No Known Allergies (Unverified , 03/10/17) Reported Meds & Prescriptions Reported Meds & Active Scripts Active [place] (Hydrocodone-Acetaminophen) 5-325 mg Tab 1 Tab PO Q6H PRN Indomethacin 25 Mg Cap 25 Mg PO TID 5 Days Take with food, milk, or antacids to decrease stomach adverse effects. Pantoprazole (Pantoprazole Sodium) 40 Mg Tab 40 Mg PO DAILY Lasix (Furosemide) 40 Mg Tab 20 Mg PO BID@,18 Reported Levothyroxine (Levothyroxine Sodium) 50 Mcg Tab 50 Mcg PO DAILY Ecotrin Low Strength (Aspirin) 81 Mg Tabdr 81 Mg PO DAILY Simvastatin 10 Mg Tab 10 Mg PO DAILY Metformin (Metformin HCl) 1,000 Mg Tab 1,000 Mg PO BIDPC With meals Clopidogrel (Clopidogrel Bisulfate) 75 Mg Tab 75 Mg PO DAILY Lisinopril 20 Mg Tab 20 Mg PO DAILY Review of Systems Except as stated in HPI: all other systems reviewed are Neg Physical Exam Narrative GENERAL: Ill-appearing 76-year-old ashen colored skin with labored breathing. SKIN: Focused skin assessment ashen colored/cool/dry. HEAD: Atraumatic. Normocephalic. EYES: Pupils equal and round. No scleral icterus. No injection or drainage. ENT: No nasal bleeding or discharge. Mucous membranes pink and moist. NECK: Trachea midline. No JVD. CARDIOVASCULAR: Regular rate and rhythm. No murmur appreciated. RESPIRATORY: No accessory muscle use. Clear to auscultation. Breath sounds equal bilaterally. GASTROINTESTINAL: Abdomen soft, non-tender, round, obese. Hepatic and splenic margins not palpable. MUSCULOSKELETAL: No obvious deformities. No clubbing. No cyanosis. No edema. NEUROLOGICAL: Awake and alert. No obvious cranial nerve deficits. Motor grossly within normal limits. Normal speech. Data Data Last Documented VS Vital Signs Date Time Temp Pulse Resp B/P (MAP) Pulse Ox O2 Delivery O2 Flow Rate FiO2 04/29/17 14:07 103 37 121/63 (82) 98 Nasal Cannula 2.00 04/29/17 12:05 98.3 Orders Orders Complete Blood Count With Diff (04/29/17 12:07) Comprehensive Metabolic Panel (04/29/17 12:07) Act Partial Throm Time (Ptt) (04/29/17 12:07) Prothrombin Time / Inr (Pt) (04/29/17 12:07) Magnesium (Mg) (04/29/17 12:07) Ckmb (Isoenzyme) Profile (04/29/17 12:07) Troponin I (04/29/17 12:07) Arterial Blood Gas (Abg) (04/29/17 12:07) Urinalysis - C+S If Indicated (04/29/17 12:07) Blood Culture (04/29/17 12:07) Iv Access Insert/Monitor (04/29/17 12:07) Electrocardiogram (04/29/17 12:07) Ecg Monitoring (04/29/17 12:07) Oximetry (04/29/17 12:07) Oxygen Administration (04/29/17 12:07) Chest, Single Ap (04/29/17 12:07) Ct Pulmonary Angiogram (04/29/17 12:07) Lactic Acid (04/29/17 12:22) Sodium Chlor 0.9% 1000 Ml Inj (Ns 1000 M (04/29/17 12:45) Iohexol 350 Inj (Omnipaque 350 Inj) (04/29/17 13:15) Sodium Chlor 0.9% 1000 Ml Inj (Ns 1000 M (04/29/17 13:45) Magnesium Sulfate 1 Gm Premix (Magnesium (04/29/17 14:45) Admit Order (Ed Use Only) (04/29/17 14:43) Admit To Inpatient (04/29/17 ) Vital Signs (Adult) Q4H (04/29/17 14:38) Activity Oob With Assistance (04/29/17 14:38) Litigation Coordinator / Telemetry .CONTINUOUS (04/29/17 14:38) Diet 1800 Ada Cons Carb (04/29/17 Dinner) Sodium Chlor 0.9% 1000 Ml Inj (Ns 1000 M (04/29/17 14:38) Sodium Chloride 0.9% Flush (Ns Flush) (04/29/17 14:45) Acetaminophen (Tylenol) (04/29/17 14:45) Temazepam (Restoril) (04/29/17 14:45) Basic Metabolic Panel (Bmp) (04/30/17 06:00) Complete Blood Count With Diff (04/30/17 06:00) Electrocardiogram (04/29/17 14:38) Heparin Inj (Heparin Inj) (04/29/17 14:45) Naloxone Inj (Narcan Inj) (04/29/17 14:45) Docusate Sodium-Senna (Amairani-Colace) (04/29/17 21:00) Magnesium Hydroxide Liq (Milk Of Magnesi (04/29/17 14:45) Sennosides (Senokot) (04/29/17 14:45) Bisacodyl Supp (Dulcolax Supp) (04/29/17 14:45) Lactulose Liq (Lactulose Liq) (04/29/17 14:45) Inpatient Certification (04/29/17 ) Aspirin Ec (Ecotrin Ec) (04/30/17 09:00) Clopidogrel (Plavix) (04/30/17 09:00) Acetamin-Hydrocod 325-5 Mg ([place]ay 5-325 (04/29/17 14:45) Indomethacin (Indocin) (04/29/17 18:00) Levothyroxine (Synthroid) (04/30/17 09:00) Lisinopril (Prinivil) (04/30/17 09:00) Pantoprazole (Protonix) (04/30/17 09:00) (Nf) Simvastatin (04/30/17 09:00) Cefepime Inj (Maxipime Inj) (04/29/17 14:45) Levofloxacin 750 Mg Premix Inj (Levaquin (04/29/17 14:45) Magnesium (Mg) (04/30/17 06:00) Phosphorus (Po4) (04/30/17 06:00) Labs Laboratory Tests Test 04/29/17 12:10 04/29/17 12:20 04/29/17 12:50 White Blood Count 6.7 TH/MM3 Red Blood Count 4.34 MIL/MM3 Hemoglobin 13.3 GM/DL Hematocrit 41.0 % Mean Corpuscular Volume 94.6 FL Mean Corpuscular Hemoglobin 30.6 PG Mean Corpuscular Hemoglobin Concent 32.4 % Red Cell Distribution Width 18.0 % Platelet Count 145 TH/MM3 Mean Platelet Volume 8.7 FL Neutrophils (%) (Auto) 83.1 % Lymphocytes (%) (Auto) 7.3 % Monocytes (%) (Auto) 9.4 % Eosinophils (%) (Auto) 0.0 % Basophils (%) (Auto) 0.2 % Neutrophils # (Auto) 5.5 TH/MM3 Lymphocytes # (Auto) 0.5 TH/MM3 Monocytes # (Auto) 0.6 TH/MM3 Eosinophils # (Auto) 0.0 TH/MM3 Basophils # (Auto) 0.0 TH/MM3 CBC Comment DIFF FINAL Differential Comment Prothrombin Time 14.4 SEC Prothromb Time International Ratio 1.3 RATIO Activated Partial Thromboplast Time 37.8 SEC Blood Urea Nitrogen 15 MG/DL Creatinine 0.99 MG/DL Random Glucose 125 MG/DL Total Protein 8.3 GM/DL Albumin 3.5 GM/DL Calcium Level 8.3 MG/DL Magnesium Level 1.2 MG/DL Alkaline Phosphatase 106 U/L Aspartate Amino Transf (AST/SGOT) 23 U/L Alanine Aminotransferase (ALT/SGPT) 11 U/L Total Bilirubin 0.9 MG/DL Sodium Level 130 MEQ/L Potassium Level 4.2 MEQ/L Chloride Level 96 MEQ/L Carbon Dioxide Level 24.4 MEQ/L Anion Gap 10 MEQ/L Estimat Glomerular Filtration Rate 73 ML/MIN Total Creatine Kinase 41 U/L Troponin I LESS THAN 0.02 NG/ML Lactic Acid Level 2.7 mmol/L Blood Gas Puncture Site RT RADIAL Blood Gas Patient Temperature 98.6 Blood Gas HCO3 20 mmol/L Blood Gas Base Excess -3.3 mmol/L Blood Gas Oxygen Saturation 93 % Arterial Blood pH 7.50 Arterial Blood Partial Pressure CO2 25 mmHg Arterial Blood Partial Pressure O2 77 mmHG Arterial Blood Oxygen Content 16.8 Vol % Arterial Blood Carboxyhemoglobin 1.8 % Arterial Blood Methemoglobin 0.4 % Blood Gas Hemoglobin 12.8 G/DL Oxygen Delivery Device NASAL CANNULA Blood Gas Liter Flow 2 L/M [facility] Medical Decision Making Medical Screen Exam Complete: Yes Emergency Medical Condition: Yes Medical Record Reviewed: Yes Interpretation(s) Last 24 hours Impressions Chest X-Ray 04/29/171206 Signed Impressions: Service Date/Time: Saturday, April 29, 2017 12:42 - CONCLUSION: 1. Bilateral medial lower lung zone airspace disease, more prominent on the left. Differential considerations include pneumonia and aspiration. 2. Slightly more prominent small left-sided pleural effusion. Travis Wills MD Last Impressions Chest X-Ray 04/29/177 Signed Impressions: Service Date/Time: Saturday, April 29, 2017 12:42 - CONCLUSION: 1. Bilateral medial lower lung zone airspace disease, more prominent on the left. Differential considerations include pneumonia and aspiration. 2. Slightly more prominent small left-sided pleural effusion. Travis Wills MD Tachycardic, hypotensive Differential Diagnosis Differential diagnosis include but are not limited to pulmonary embolism, metastatic disease, rib fracture, rib contusion, coronary event, electrolyte abnormality, pneumonia, sepsis Narrative Course 76-year-old male patient presents to emergency room for evaluation of increasing dyspnea. Patient referred here by his oncologist Dr. Edwards to rule out a pulmonary embolus. Patient denies any history of blood clots. Patient states that he has had an achy dull pain on the lateral aspect of his thoracic region for a couple weeks. Patient denies any trauma or injury occurring before the pain. CBC, CMP, PT/INR, magnesium, troponin, CK, ABG, blood cultures , lactic acid, EKG, chest x-ray, pulmonary CTA ordered and pending. CBC shows no acute abnormalities CMP hyponatremia at 130, PT/INR Elevated PT of 14.4. Elevated APTT 37.8. MAG low at 1.2 TROP less than 0.02 CK within normal limits at 41 ABG pH slightly elevated at 7.5, BLOOD CULTURES ordered and pending LACTIC ACID elevated at 2.7 EKG shows atrial fibrillation with RVR heart rate 106 CXR shows bilateral medial lower lung zone airspace disease, more predominant on the left. Small left-sided pleural effusion. PULMONARY CTA 1. No CT evidence for pulmonary artery embolism as questioned. 2. Moderate interval progression of bilateral groundglass opacities since 2016 CT exam. These opacities were new at that time. Overall findings are concerning for progressive multilobar pneumonia, atypical pneumonia or developing ARDS. 3. Moderate upper lobe predominant centrilobular emphysema with postsurgical features of left lower lobectomy. 4. Grossly stable mediastinal adenopathy, cavitary 3 cm right basilar lung mass , and apparent hepatic metastasis. Patient given 1L bolus IV normal saline and normal saline at 125 an hour. Patient given 2 g magnesium sulfate IV to replace magnesium. Patient given 750 mg Levaquin IV and 2 g cefepime IV to treat pneumonia. Based on patient's symptoms, clinical presentation, lab results, radiological results, vital sign review and physical exam it is clinically appropriate to admit the patient to the hospital for treatment and further evaluation. [facility] hospitalist paged for admission. Dr Hugo accepted admission. Sepsis Criteria SIRS Criteria (2 or more): Heart rate over 90, RR > 20 or PaCO2 < 32 Severe Sepsis (+one): Hypotension, Lactate >2 Criteria Outcome: Meets SIRS criteria, Meets sepsis criteria Diagnosis Primary Impression: Sepsis Qualified Codes: A41.9 - Sepsis, unspecified organism Additional Impressions: Pneumonia Qualified Codes: J18.9 - Pneumonia, unspecified organism Elevated lactic acid level Admitting Information Admitting Physician Requests: Admit Kavita Rogers Apr 29, 2017 12:53
[2017-04-29 12:59] LABS: BLOOD GAS BASE EXCESS -3.3 mmol/L (-2-2); BLOOD GAS CARBOXYHEMOGLOBIN 1.8 % (0-4); BLOOD GAS HCO3 20 mmol/L (22-26); BLOOD GAS METHEMOGLOBIN 0.4 % (0-2); BLOOD GAS O2 HGB SATURATION 93 % (90-100); BLOOD GAS OXYGEN CONTENT 16.8 Vol % (12.0-20.0); BLOOD GAS PCO2 25 mmHg (38-42); BLOOD GAS PO2 77 mmHG (61-120); BLOOD GAS TOTAL HGB 12.8 G/DL (12.0-16.0); CRITICAL VALUE NO; DRAW SITE RT RADIAL; LITER FLOW 2 L/M; NUMBER OF ARTERIAL PUNCTURES 1; OXYGEN DEVICE NASAL CANNULA; STAT YES; TEMP CORR TO 98.6; ULNAR PULSE PRESENT
[2017-04-29 13:00] LABS: CREATINE KINASE 41 U/L (39-308)
--- NOTE | 2017-04-29 13:07 | RADRPT ---
EXAM DATE/TIME: 04/29/2017 12:42 [facility] COMPARISON: CHEST SINGLE AP, July 01, 2016, 10:37. INDICATIONS : Short of breath, and cough. MEDICAL HISTORY : Carcinoma, lung. Chronic obstructive pulmonary disease. Hypertension. SURGICAL HISTORY : 1/4 of left lung removed due to lung CA. ENCOUNTER: Initial ACUITY: 1 day PAIN SCORE: 0/10 LOCATION: Bilateral chest FINDINGS: There are bilateral medial lower lung zone airspace disease, more prominently in on the left. Slightl y more prominent small left-sided pleural effusion. Cardiomediastinal contours are stable. Remainder of exam is unchanged. CONCLUSION: 1. Bilateral medial lower lung zone airspace disease, more prominent on the left. Differential consid erations include pneumonia and aspiration. 2. Slightly more prominent small left-sided pleural effusion. Travis Wills MD on April 29, 2017 at 13:04 Board Certified Radiologist. This report was verified electronically.
[2017-04-29] MEDS ORDERED: IOHEXOL 350 MG/ML 10 ML VIAL (for RAD DIAG) IVCONTRAST ONE (13:15)
--- NOTE | 2017-04-29 13:42 | RADRPT ---
EXAM DATE/TIME: 04/29/2017 13:05 [facility] COMPARISON: CT NEEDLE BIOPSY LUNG, LEFT, November 24, 2016, 8:14. CT SIMULATION, November 11, 2016, 10:20. CT MEDIAST INAL BIOPSY, November 04, 2016, 8:42. CT NEEDLE BIOPSY LIVER, March 10, 2017, 9:30. [place] imagi ng CT exam 04/22/2017 INDICATIONS : Embolism.Shortness of breath. IV CONTRAST: 76 cc Omnipaque 350 (iohexol) IV RADIATION DOSE: 13.67 CTDIvol (mGy) MEDICAL HISTORY : Cardiovascular disease. Hypertension. Carcinoma, lung.Diabetes, Afib, SURGICAL HISTORY : None. Chemo, Radiation. ENCOUNTER: Initial ACUITY: 1 day PAIN SCALE: 6/10 LOCATION: Bilateral chest TECHNIQUE: Volumetric scanning of the chest was performed using a pulmonary embolism protocol MIP images were re constructed. Using automated exposure control and adjustment of the mA and/or kV according to patien t size, radiation dose was kept as low as reasonably achievable to obtain optimal diagnostic quality images. DICOM format image data is available electronically for review and comparison. Follow-up recommendations for detected pulmonary nodules are based at a minimum on nodule size and pa tient risk factors according to Fleischner Society Guidelines. FINDINGS: PULMONARY ARTERIES: No filling defects are seen in the pulmonary arteries through the segmental level. LUNGS: Postsurgical features of left lower lobectomy. Moderate upper lobe predominant centrilobular emphysem a. Stable 3 cm cavitary mass in the right lung base. Interval progression of groundglass opacities th roughout the left lung with interval development of bilateral groundglass opacities in the right low er lobe and in the right middle lobe. PLEURAE: Stable complex loculated left pleural effusion. MEDIASTINUM: Stable mild four-chamber cardiac enlargement. No significant pericardial effusion. Stable mediastinal adenopathy. MUSCULOSKELETAL: No new focal osseous lesion. MISCELLANEOUS: Redemonstration of multiple hypodense liver masses. CONCLUSION: 1. No CT evidence for pulmonary artery embolism as questioned. 2. Moderate interval progression of bilateral groundglass opacities since 04/22/2017 CT exam. These op acities were new at that time. Overall findings are concerning for progressive multilobar pneumonia, atypical pneumonia or developing ARDS. 3. Moderate upper lobe predominant centrilobular emphysema with postsurgical features of left lower l obectomy. 4. Grossly stable mediastinal adenopathy, cavitary 3 cm right basilar lung mass, and apparent hepatic metastasis. Travis Wills MD on April 29, 2017 at 13:28 Board Certified Radiologist. This report was verified electronically.
[2017-04-29] MEDS ORDERED: SODIUM CHLOR 0.9% 1000 ML INJ 1,000 ML IV ONE (13:45)
[2017-04-29 14:07] VITALS: BP 121/63; PULSE 103; RESP 37; O2SAT 98
[2017-04-29] MEDS ORDERED: LEVOFLOXACIN 750 MG PREMIX INJ 150 ML IV STA ×2 (14:40→14:45)
[2017-04-29] MEDS ORDERED: cefTRIAXone INJ 2,000 MG in SODIUM CHLORIDE 0.9% INJ 100 ML IV STA (14:40)
[2017-04-29] MEDS ORDERED: LACTULOSE SYRUP 20 GM/30 ML CUP PO PRN (14:45)
[2017-04-29] MEDS ORDERED: MAGNESIUM HYDROXIDE SUSP 30 ML CUP PO PRN (14:45)
[2017-04-29] MEDS ORDERED: NALOXONE HCL 0.4 MG/ML AMP IV PUSH PRN (14:45)
[2017-04-29] MEDS ORDERED: ACETAMINOPHEN 325 MG TAB PO PRN (14:45)
[2017-04-29] MEDS ORDERED: SODIUM CHLORIDE 0.9% FLUSH 10 ML FLUSH IV FLUSH PRN (14:45)
[2017-04-29] MEDS ORDERED: CEFEPIME INJ 2,000 MG in SODIUM CHLORIDE 0.9% INJ 100 ML IV STA (14:45)
[2017-04-29] MEDS ORDERED: SENNOSIDES 8.6 MG TAB PO PRN (14:45)
[2017-04-29] MEDS ORDERED: BISACODYL 10 MG SUPP RECTAL PRN (14:45)
[2017-04-29] MEDS: MAGNESIUM SULFATE 1 GM PREMIX 100 ML IV SCH ×2 (14:55→15:46)
[2017-04-29 15:36] LABS: BLOOD, URINE NEG (NEG); COMMENT (UR) CULT NOT INDICATED; CULTURE IF INDICATED CULT NOT INDICATED; GLUCOSE,URINE NEG (NEG); KETONE, URINE TRACE mg/dL (NEG); MUCUS URINE FEW /lpf (OCC); NITRITE,URINE NEG (NEG); SQUAMOUS EPITHELIAL CELL URINE 1 /hpf (0-5); URINE COLOR YELLOW (YELLW/STRAW)
--- NOTE | 2017-04-29 16:21 | HHI.PR ---
Objective Objective Results - Vital Signs Date Time Temp Pulse Resp B/P (MAP) Pulse Ox O2 Delivery O2 Flow Rate FiO2 04/29/17 14:07 103 37 121/63 (82) 98 Nasal Cannula 2.00 04/29/17 12:11 90 Room Air 04/29/17 12:11 98 Nasal Cannula 2.00 04/29/17 12:05 98.3 130 38 129/80 (96) 90 Room Air 04/29/17 12:02 98.7 108 27 82/57 (65) 93 Room Air Result Diagram: 04/29/17 1210 04/29/17 1210 A/P Assessment and Plan [id number] Septicemia with hypotension and tachycardia atrial fib, RVR Multilobar pna/ possible ARDS Hx throat ca, lung ca with liver mets COPD /emphyzema Hyponatremia DM, 2, non insulin dependent Dyspnea, and cough wough Sanjuana Urena Apr 29, 2017 16:20
[2017-04-29] MEDS ORDERED: GLUCAGON 1 MG/ML VIAL OTHER PRN (16:30)
[2017-04-29] MEDS ORDERED: DEXTROSE 50% IN WATER 50 ML VIAL(D50) IV PUSH PRN (16:30)
[2017-04-29] MEDS: SODIUM CHLOR 0.9% 1000 ML INJ 1,000 ML IV SCH (16:30)
--- NOTE | 2017-04-29 16:52 | EKG ---
Date Performed: 04/29/2017 Time Performed: 12:11:25 PTAGE: 76 years EKG: ATRIAL FIBRILLATION WITH RAPID VENTRICULAR RESPONSE WITH ABERRANT CONDUCTION OR VENTRICULAR PREMATURE COMPLEXES ABNORMAL RHYTHM ECG PREVIOUS TRACING : 07/02/2016 16.36 No significant change from previous tracing noted. DOCTOR: Loki Avila Interpretating Date/Time 04/29/2017 16:51:57
[2017-04-29] MEDS: INSULIN NovoLIN REGULAR SUPPLEMENTAL SCALE SQ SCH ×2 (17:00→20:59)
[2017-04-29 17:18] VITALS: BP 120/72; PULSE 92; RESP 18; TEMP 98.5; O2SAT 95
[2017-04-29] MEDS ORDERED: INDOMETHACIN 25 MG CAP PO SCH (18:00)
[2017-04-29] MEDS: HEPARIN SODIUM - SQ 10,000 UNITS/ML VIAL SQ SCH (18:17)
[2017-04-29 20:00] VITALS: BP 150/68; PULSE 104; RESP 20; TEMP 98.2; O2SAT 92
[2017-04-29] MEDS ORDERED: TEMAZEPAM 15 MG CAP PO PRN (21:00)
[2017-04-29] MEDS: ACETAMINOPHEN/HYDROcodone 325 MG/5 MG TAB PO PRN (21:00)
[2017-04-29] MEDS: DOCUSATE SODIUM 50 MG/SENNA 8.6 MG TAB PO SCH (21:00)
[2017-04-29] MEDS: metroNIDAZOLE 500 MG INJ 100 ML IV SCH (21:01)
[2017-04-30] VITALS (10 sets, daily range): BP systolic 94–152; BP diastolic 58–80; PULSE 53–117; RESP 16–22; TEMP 96.5–97.5; O2SAT 95–99
[2017-04-30] MEDS: SODIUM CHLOR 0.9% 1000 ML INJ 1,000 ML IV SCH ×2 (03:53→21:47)
[2017-04-30] MEDS: HEPARIN SODIUM - SQ 10,000 UNITS/ML VIAL SQ SCH ×2 (05:00→18:19)
[2017-04-30] MEDS: ACETAMINOPHEN/HYDROcodone 325 MG/5 MG TAB PO PRN (05:58)
[2017-04-30] MEDS: metroNIDAZOLE 500 MG INJ 100 ML IV SCH ×3 (05:59→21:46)
[2017-04-30] MEDS: LEVOTHYROXINE SODIUM 50 MCG TAB PO SCH (06:00)
[2017-04-30 07:04] LABS: AUTOMATED NEUTROPHIL # 6.1 TH/MM3 (1.8-7.7); BASOPHIL % 0.1 % (0.0-2.0); HEMATOCRIT 35.2 % (39.0-51.0); HEMO FLAGS DIFF FINAL; LYMPHOCYTE # 0.1 TH/MM3 (1.0-4.8); MEAN CELL VOLUME 93.6 FL (80.0-100.0); MEAN CORPUSCULAR HEMOGLOBIN 30.2 PG (27.0-34.0); MEAN CORPUSCULAR HGB CONC 32.3 % (32.0-36.0); MONO % 6.7 % (0.0-8.0); NEUT % 91.2 % (16.0-70.0); PLATELET COUNT 123 TH/MM3 (150-450); RED BLOOD COUNT 3.76 MIL/MM3 (4.50-5.90); RED CELL DISTRIBUTION WIDTH 17.7 % (11.6-17.2); WHITE BLOOD COUNT 6.7 TH/MM3 (4.0-11.0)
[2017-04-30 07:33] LABS: BICARBONATE 18.9 MEQ/L (21.0-32.0); MAGNESIUM 1.5 MG/DL (1.5-2.5); POTASSIUM 3.7 MEQ/L (3.5-5.1)
[2017-04-30] MEDS: CEFEPIME INJ 2,000 MG in SODIUM CHLORIDE 0.9% INJ 100 ML IV SCH ×2 (07:54→18:18)
[2017-04-30] MEDS: INSULIN NovoLIN REGULAR SUPPLEMENTAL SCALE SQ SCH ×4 (07:54→21:00)
[2017-04-30] MEDS: ASPIRIN EC 81 MG TABEC PO SCH (07:55)
[2017-04-30] MEDS: PRAVASTATIN SOD 20 MG TAB PO SCH (07:57)
[2017-04-30] MEDS: DOCUSATE SODIUM 50 MG/SENNA 8.6 MG TAB PO SCH ×2 (07:58→21:00)
[2017-04-30] MEDS: CLOPIDOGREL 75 MG TAB PO SCH (07:59)
[2017-04-30] MEDS: PANTOPRAZOLE SOD 40 MG DELAYED RELEASE TAB PO SCH (07:59)
[2017-04-30] MEDS: LISINOPRIL 20 MG TAB PO SCH (07:59)
--- NOTE | 2017-04-30 08:09 | HHI.PR ---
Subjective Remarks Sitting up in the chair Currently on 100% nonrebreather mask, decompensated during the night States that he has been on it a good part of the night had some problems with shortness of breath Speech therapy in for swallow eval but will need to wean oxygen before mass can be removed, respiratory to assist in maintaining sats greater than 92 Alert answers questions appropriately Chief complaint shortness of breath (Sanjuana Cunningham) Objective Objective Results - Vital Signs Date Time Temp Pulse Resp B/P (MAP) Pulse Ox O2 Delivery O2 Flow Rate FiO2 04/30/17 04:00 97.2 69 22 152/67 (95) 99 04/30/17 00:00 97.2 53 18 122/80 (94) 97 04/29/17 20:00 98.2 104 20 150/68 (95) 92 04/29/17 17:18 98.5 92 18 120/72 (88) 95 04/29/17 16:42 04/29/17 14:07 103 37 121/63 (82) 98 Nasal Cannula 2.00 04/29/17 12:11 90 Room Air 04/29/17 12:11 98 Nasal Cannula 2.00 04/29/17 12:05 98.3 130 38 129/80 (96) 90 Room Air 04/29/17 12:02 98.7 108 27 82/57 (65) 93 Room Air I/O 04/29/17 04/29/17 04/29/17 04/30/17 04/30/17 04/30/17 07:00 15:00 23:00 07:00 15:00 23:00 # Voids 1 (Sanjuana Cunningham) Result Diagram: 04/30/17 0638 04/30/17 0638 ROS General: Fatigue, Weakness, Other HEENT: Dysphagia (possible, history of throat cancer) Pulmonary: Cough, SOB Neuro/MS: Other (weakness and fatigue) (Sanjuana Cunningham) Physical Exam Physical Exam PHYSICAL EXAMINATION GENERAL: This is an obese elderly male Eating up in chair with 100% nonrebreather on. He is awake, HEAD: Normocephalic without any lesion or mass noted. Facial features appear symmetric. OROPHARYNGEAL: Oropharynx with some mild dysphasia possible NECK: Trachea midline without deviation. CARDIAC: Irregular rhythm, regular rate, S1 and S2 , distant LUNGS: Diminished to auscultation bilaterally. Mild expiratory wheeze, positive use of accessory muscles on inspiration or expiration. ABDOMEN: Round obese Soft, nontender, Bowel sounds soft, No rebound. No guarding. EXTREMITIES: Mild lower extremity edema. Warm to touch NEUROLOGICAL: Patient mood and affect appropriate. No focal deficit SKIN:Warm and dry (Sanjuana Cunningham) A/P Assessment and Plan vitals signs reviewed, pulse now 69, BP 152/67, afebrile labs, Na 132, phos 1.7, hgb 11.4 Check BMP, cbc in the morning, Sepsis Continue antibiotic therapy, one of the last antibiotics had a default in the bag patient's daughter said he did not receive much of the medicine at all, reported to nurse and requested report to pharmacy so we can possibly repeat the antibiotic, hypotension resolved BP now 152/67 atrial fib, RVR, heart rate now controlled Multilobar pna/ ARDS, currently patient requiring 100% nonrebreather, decompensated during the early a.m. 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 underwent left upper lobe lobectomy in the past treatment chemotherapy and radiation treatments. 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 due to extreme shortness of breath, wean attempt today Discussed with patient and daughter, request another bed to be placed in patient 's room due to mattress discomfort, states that has a hole in the center of it where patient lays. Discussed with nurse Discussed with Dr. bueno, seen on his behalf CODE STATUS DO NOT RESUSCITATE, we'll use BiPAP or CPAP if needed, otherwise full aggressive care Patient has cancer in multiple sites, received chemotherapy approximately a month ago (Sanjuana Cunningham) Assessment and Plan Patient seen and examined Discharge review Discussed patient and her son at bedside Discussed with Sanjuana Street with above Speech therapy swallow evaluation noted, patient is on mechanical soft diet with honey thick liquids Any broad-spectrum empiric IV antibiotics, including cefepime Levaquin and vancomycin Oxygen aerosol treatment Supportive care Patient is DNR Will follow (Antonio Bueno MD) Sanjuana Cunningham Apr 30, 2017 08:09 Antonio Bueno MD Apr 30, 2017 16:21
[2017-04-30 08:20] LABS: CALCIUM-PROTEIN CORRECTED 7.4 MG/DL (8.5-10.1)
--- NOTE | 2017-04-30 08:33 | PD.ONC.PN ---
Subjective Subjective Remarks Afebrile overnight. Patient reporting cough anytime he eats or drinks anything. +increased sputum production over the last few days. Objective Data Date Time Temp Pulse Resp B/P (MAP) Pulse Ox O2 Delivery O2 Flow Rate FiO2 04/30/17 04:00 97.2 69 22 152/67 (95) 99 04/30/17 00:00 97.2 53 18 122/80 (94) 97 04/29/17 20:00 98.2 104 20 150/68 (95) 92 04/29/17 17:18 98.5 92 18 120/72 (88) 95 04/29/17 16:42 04/29/17 14:07 103 37 121/63 (82) 98 Nasal Cannula 2.00 04/29/17 12:11 90 Room Air 04/29/17 12:11 98 Nasal Cannula 2.00 04/29/17 12:05 98.3 130 38 129/80 (96) 90 Room Air 04/29/17 12:02 98.7 108 27 82/57 (65) 93 Room Air Result Diagram: 04/30/17 0638 04/30/17 0638 Laboratory Results Laboratory Tests Test 04/29/17 12:10 04/29/17 12:20 04/29/17 12:50 04/29/17 15:17 White Blood Count 6.7 TH/MM3 Red Blood Count 4.34 MIL/MM3 Hemoglobin 13.3 GM/DL Hematocrit 41.0 % Mean Corpuscular Volume 94.6 FL Mean Corpuscular Hemoglobin 30.6 PG Mean Corpuscular Hemoglobin Concent 32.4 % Red Cell Distribution Width 18.0 % Platelet Count 145 TH/MM3 Mean Platelet Volume 8.7 FL Neutrophils (%) (Auto) 83.1 % Lymphocytes (%) (Auto) 7.3 % Monocytes (%) (Auto) 9.4 % Eosinophils (%) (Auto) 0.0 % Basophils (%) (Auto) 0.2 % Neutrophils # (Auto) 5.5 TH/MM3 Lymphocytes # (Auto) 0.5 TH/MM3 Monocytes # (Auto) 0.6 TH/MM3 Eosinophils # (Auto) 0.0 TH/MM3 Basophils # (Auto) 0.0 TH/MM3 CBC Comment DIFF FINAL Differential Comment Prothrombin Time 14.4 SEC Prothromb Time International Ratio 1.3 RATIO Activated Partial Thromboplast Time 37.8 SEC Blood Urea Nitrogen 15 MG/DL Creatinine 0.99 MG/DL Random Glucose 125 MG/DL Total Protein 8.3 GM/DL Albumin 3.5 GM/DL Calcium Level 8.3 MG/DL Magnesium Level 1.2 MG/DL Alkaline Phosphatase 106 U/L Aspartate Amino Transf (AST/SGOT) 23 U/L Alanine Aminotransferase (ALT/SGPT) 11 U/L Total Bilirubin 0.9 MG/DL Sodium Level 130 MEQ/L Potassium Level 4.2 MEQ/L Chloride Level 96 MEQ/L Carbon Dioxide Level 24.4 MEQ/L Anion Gap 10 MEQ/L Estimat Glomerular Filtration Rate 73 ML/MIN Total Creatine Kinase 41 U/L Troponin I LESS THAN 0.02 NG/ML Lactic Acid Level 2.7 mmol/L Blood Gas Puncture Site RT RADIAL Blood Gas Patient Temperature 98.6 Blood Gas HCO3 20 mmol/L Blood Gas Base Excess -3.3 mmol/L Blood Gas Oxygen Saturation 93 % Arterial Blood pH 7.50 Arterial Blood Partial Pressure CO2 25 mmHg Arterial Blood Partial Pressure O2 77 mmHG Arterial Blood Oxygen Content 16.8 Vol % Arterial Blood Carboxyhemoglobin 1.8 % Arterial Blood Methemoglobin 0.4 % Blood Gas Hemoglobin 12.8 G/DL Oxygen Delivery Device NASAL CANNULA Blood Gas Liter Flow 2 L/M Urine Color YELLOW Urine Turbidity CLEAR Urine pH 6.0 Urine Specific Post 1.035 Urine Protein 30 mg/dL Urine Glucose (UA) NEG mg/dL Urine Ketones TRACE mg/dL Urine Occult Blood NEG Urine Nitrite NEG Urine Bilirubin NEG Urine Urobilinogen LESS THAN 2.0 MG/DL Urine Leukocyte Esterase NEG Urine WBC 2 /hpf Urine Squamous Epithelial Cells 1 /hpf Urine Mucus FEW /lpf Microscopic Urinalysis Comment CULT NOT INDICATED Test 04/30/17 06:38 White Blood Count 6.7 TH/MM3 Red Blood Count 3.76 MIL/MM3 Hemoglobin 11.4 GM/DL Hematocrit 35.2 % Mean Corpuscular Volume 93.6 FL Mean Corpuscular Hemoglobin 30.2 PG Mean Corpuscular Hemoglobin Concent 32.3 % Red Cell Distribution Width 17.7 % Platelet Count 123 TH/MM3 Mean Platelet Volume 8.4 FL Neutrophils (%) (Auto) 91.2 % Lymphocytes (%) (Auto) 2.0 % Monocytes (%) (Auto) 6.7 % Eosinophils (%) (Auto) 0.0 % Basophils (%) (Auto) 0.1 % Neutrophils # (Auto) 6.1 TH/MM3 Lymphocytes # (Auto) 0.1 TH/MM3 Monocytes # (Auto) 0.5 TH/MM3 Eosinophils # (Auto) 0.0 TH/MM3 Basophils # (Auto) 0.0 TH/MM3 CBC Comment DIFF FINAL Differential Comment Blood Urea Nitrogen 11 MG/DL Creatinine 0.63 MG/DL Random Glucose 167 MG/DL Total Protein 6.7 GM/DL Calcium Level 7.2 MG/DL Phosphorus Level 1.7 MG/DL Magnesium Level 1.5 MG/DL Sodium Level 132 MEQ/L Potassium Level 3.7 MEQ/L Chloride Level 101 MEQ/L Carbon Dioxide Level 18.9 MEQ/L Anion Gap 12 MEQ/L Estimat Glomerular Filtration Rate 123 ML/MIN Protein Corrected Calcium 7.4 MG/DL Culture Results Microbiology Date/Time Source Procedure Growth Status 04/29/17 12:15 Blood Peripheral Aerobic Blood Culture Pending Received 04/29/17 12:15 Blood Peripheral Anaerobic Blood Culture Pending Received 04/29/17 12:10 Blood Peripheral Aerobic Blood Culture Pending Received 04/29/17 12:10 Blood Peripheral Anaerobic Blood Culture Pending Received Imaging Studies Last 24 hours Impressions Chest X-Ray 04/29/17 1207 Signed Impressions: Service Date/Time: Saturday, April 29, 2017 12:42 - CONCLUSION: 1. Bilateral medial lower lung zone airspace disease, more prominent on the left. Differential considerations include pneumonia and aspiration. 2. Slightly more prominent small left-sided pleural effusion. Travis Wills MD CT Angiography 04/29/17 1207 Signed Impressions: Service Date/Time: Saturday, April 29, 2017 13:05 - CONCLUSION: 1. No CT evidence for pulmonary artery embolism as questioned. 2. Moderate interval progression of bilateral groundglass opacities since 04/22/2017 CT exam. These opacities were new at that time. Overall findings are concerning for progressive multilobar pneumonia, atypical pneumonia or developing ARDS. 3. Moderate upper lobe predominant centrilobular emphysema with postsurgical features of left lower lobectomy. 4. Grossly stable mediastinal adenopathy, cavitary 3 cm right basilar lung mass, and apparent hepatic metastasis. Travis Wills MD Administered Medications Medications (Trade) Dose Ordered Sig/Darron Route PRN Reason Start Time Stop Time Status Last Admin Dose Admin Sodium Chloride 1,000 ml @ 100 mls/hr Q10H IV 04/29/17 16:30 04/30/17 03:53 Heparin Sodium (Porcine) (Heparin Inj) 5,000 units Q12H SQ 04/29/17 17:00 04/30/17 05:00 Aspirin (Ecotrin Ec) 81 mg DAILY PO 04/30/17 09:00 04/30/17 07:55 Acetaminophen/ Hydrocodone Bitart ([place] 5-325 Mg) 1 tab Q6H PRN PO PAIN 04/29/17 14:45 04/30/17 05:58 Levothyroxine Sodium (Synthroid) 50 mcg DAILY@0600 PO 04/30/17 06:00 04/30/17 06:00 Lisinopril (Prinivil) 20 mg DAILY PO 04/30/17 09:00 04/30/17 07:59 Pravastatin Sodium (Pravachol) 20 mg DAILY PO 04/30/17 09:00 04/30/17 07:57 Cefepime HCl 2000 mg/Sodium Chloride 100 ml @ 200 mls/hr Q12H IV 04/30/17 06:00 04/30/17 07:54 Metronidazole 100 ml @ 100 mls/hr Q8H IV 04/29/17 21:00 04/30/17 05:59 Objective Remarks GENERAL: Pleasant elderly male upright in chair next to bed. SKIN: Warm and dry. HEAD: Normocephalic. EYES: No injection or drainage. NECK: Supple, trachea midline. CARDIOVASCULAR: +S1/S2 RESPIRATORY: diminished at bases, scattered rhonchi. GASTROINTESTINAL: Abdomen soft, non-tender, nondistended. EXTREMITIES: No cyanosis NEUROLOGICAL: No obvious focal deficit. Awake, alert, and oriented x3. Assessment/Plan Problem List: (1) Metastatic lung cancer (metastasis from lung to other site) ICD Codes: C34.90 - Malignant neoplasm of unspecified part of unspecified bronchus or lung Plan: --further treatment on outpatient basis after current conditions have resolved. History: --History of zaz-brnmf-orst lung cancer diagnosed at stage I; pT1 pN0 poorly differentiated adenocarcinoma. underwent left upper lobe lobectomy. --was a limited stage disease initially and was treated with concurrent chemotherapy (Carbo/VP16) and radiation treatments. 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 (3) Pneumonia ICD Codes: J18.9 - Pneumonia, unspecified organism Status: Acute Plan: --on Cefepime and Flagyl --BC, 04/29, pending CTA on 04/29 showed groundglass opacities concerning for pneumonia or ARDS Assessment 76y/o male with metastatic onx-qyhew-cxoc lung cancer with neuroendocrine features, admitted with dyspnea. h/o Atrial fibrillation. Copd. Diabetes. Hypercholesterolemia Hypertension. Obstructive sleep apnea. Peripheral neuropathy DVT prophylaxis: Heparin q 12 on Plavix and ASA Plan 1. continue antibiotics 2. speech therapy consult Attending Statement The exam, history, and the medical decision-making described in the above note were completed with the assistance of the mid-level provider. I reviewed and agree with the findings presented. I attest that I had a [id number] encounter with the patient on the same day, and personally performed and documented my assessment and findings in the medical record. CTA shows no PE has Pneumonia--On Cefepime and Levaquin d/w rn o/n events reviewed Full consult note dictated separately Problem Qualifiers (1) Pneumonia: Qualified Codes: J18.9 - Pneumonia, unspecified organism Emily Gordon Apr 30, 2017 08:33 Gilbert Edwards MD Apr 30, 2017 12:03
[2017-04-30] MEDS: LEVOFLOXACIN 500 MG PREMIX INJ 100 ML IV SCH (15:06)
--- NOTE | 2017-04-30 15:35 | MB ---
cc: GIANNA ARREDONDO DATE OF CONSULTATION 04/30/17 REASON FOR CONSULTATION Patient with a history of metastatic dua-joeqh-xgku lung cancer who presented with hypoxia, cough, severe deconditioning and left-sided chest wall pain. HISTORY OF PRESENT ILLNESS Mr. Castro has a diagnosis of metastatic qne-rxzyp-cdqh lung cancer with neuroendocrine features. He was recently found to have metastatic disease to the liver which involves his left liver lobe. Additionally, there are some small lesions in the right liver lobe as well. He has a complicated oncological history. He was diagnosed with head and neck cancer in 2009 and he underwent radiation treatments along with chemotherapy and achieved remission. Then he developed dqf-gykee-jbia lung cancer which was a stage I disease. This was a poorly differentiated adenocarcinoma involving the left upper lobe. He received a left upper lobe lobectomy. Subsequently, he was under observation. Unfortunately, in the spring he developed new lung lesions which were biopsied. These were consistent with small-cell lung cancer. He had limited stage disease and was treated with concurrent chemotherapy and radiation treatments. He was treated with carboplatin and etoposide. He then unfortunately developed new liver lesions. These were biopsied and these were found to be wql-mmzoc-dolq lung cancer. The patient has not had treatments for several months. He decided to go to [facility] and recently returned from there and he was seen in the clinic. We discussed treatment plans. Since he has not had any imaging CT of the chest, abdomen and pelvis was ordered. The patient then developed severe dyspnea and became very weak. He was hypoxic. He also was having left chest wall pain. He was sent to the emergency department. He had a CT angiogram to rule out a pulmonary embolism. This did not show any evidence of pulmonary artery embolism. There was moderate interval progression of bilateral ground glass opacities. These are new opacities. These are concerning for progressive multilobar pneumonia/atypical pneumonia versus ARDS. The mediastinal adenopathy remains stable. There is cavitary lesion which is 3 cm and it is seen in the right basilar lung. Again, the liver mass was visualized. It is difficult to say whether there is any metastatic disease to the chest wall where he complains of pain. The patient was admitted to the hospital. He has been started on antibiotics. He is currently on Levaquin, cefepime and Flagyl. He remains somewhat tachycardiac. Blood pressure is low as well at 94/58. He is afebrile with temperature of 97.4 and currently he is on nasal cannula at 6 liters with O2 sats are 96%. REVIEW OF SYSTEMS A comprehensive 14-point review of systems was completed which is negative except as described in the HPI. PAST MEDICAL HISTORY Ixx-wufjw-fcti lung cancer which is metastatic. History of small-cell lung cancer. History of head and neck cancer. COPD and emphysema. History of a-fib. History of esophageal strictures. PAST SURGICAL HISTORY Surgical history lung biopsy, liver biopsy. Left lower lobe lobectomy, cataract surgery. TURP. MEDICATIONS 1. Levaquin IV q. 24 hours. 2. Aspirin 81 milligrams daily. 3. Plavix 75 milligrams p.o. daily. 4. Lisinopril 20 milligrams p.o. daily. 5. Pantoprazole 40 milligrams p.o. daily. 6. Pravastatin 20 milligrams p.o. daily. 7. Levothyroxine 50 micrograms p.o. daily. 8. Cefepime 2 grams IV q. 12 hours. 9. Restoril 15 milligrams p.o. q. h.s. 10. Senna/Docusate 1 tablet p.o. b.i.d. 11. Flagyl IV q. 8 hours. 12. Indomethacin 25 milligrams p.o. t.i.d. 13. Heparin 5000 units subcu q. 24 hours. 14. Milk of magnesia/Senna. 15. Lactulose. 16. [place] 5/325 1 tablet p.o. q. 6 hours p.r.n. ALLERGIES NO KNOWN DRUG ALLERGIES. PHYSICAL EXAMINATION VITAL SIGNS: Blood pressure is 94/58, pulse is in the 90s, temperature is 97.4, O2 sats are 96% on 6 liters of nasal cannula. GENERAL: Elderly male who is acutely ill. HEENT: Pupils are equal, round, reactive to light. EOMI. No oral thrush. No oral lesions. NECK: Supple. No JVD, no bruits. No lymphadenopathy. CARDIAC: S1-S2, tachycardiac. LUNGS: Bilateral rhonchi and expiratory wheezing. ABDOMEN: Nontender, nondistended. Bowel sounds are present. EXTREMITIES: Without any edema, erythema or cyanosis. SKIN: Without any petechiae, lesion or bruises. NEURO: No focal deficit. PSYCHIATRIC: Mood and affect are appropriate. LABORATORY DATA Sodium 132, potassium 3.7, chloride 101, CO2 18.9, BUN 11, creatinine 0.63, lactic acid 2.7, calcium 7.2, phosphorus 1.7, total protein 6.7, WBC 6.7, hemoglobin 11.4, platelet count 123. IMAGING STUDIES Reviewed in the EMR. ASSESSMENT/PLAN This is a 76-year-old male who has a complicated medical history and has had multiple malignancies. He was recently found to have metastatic dqb-ujlut-ogig lung cancer. He has metastatic disease to liver. He was previously treated for small cell lung cancer with concurrent chemotherapy and radiation treatments. He also received a left upper lobe lobectomy for stage 1 nmz-tcmje-dymq lung cancer. He has also been treated for head and neck cancer in the past with chemotherapy and radiation treatments. He presents to the emergency department with acute dyspnea and hypoxia and generalized weakness. 1. Bilateral multilobar pneumonia with hypoxia. I would recommend broad-spectrum antibiotics. I would add vancomycin to his regimen. Continue breathing treatments. Start steroids. Pulmonology consult has been placed. Follow up on the blood cultures. 2. Anemia. This is mild, will continue to monitor. 3. Mild thrombocytopenia due to acute illness. 4. Hypocalcemia, correct calcium. 5. Hypophosphatemia, correct phosphorus. 6. Stage IV fxb-dtsuz-uwsm cancer with mets to the liver, further treatment outpatient. Thank you for allowing me to participate in the care of this patient. I will continue to follow this patient along. MD KELI Shah/HE /1:36 PM /3:01 PM [place]
[2017-04-30] MEDS: RESP: ALBUTEROL 2.5 MG/IPRATROPIUM 0.5 MG NEB (SCH) NEB (20:32)
--- NOTE | 2017-04-30 21:03 | MB ---
cc: LASHAWN VERDUGO DATE OF CONSULTATION: 04/30/2017. REASON FOR CONSULTATION: Respiratory distress and bilateral lung infiltrates with history of metastatic nonsmall cell lung cancer. HISTORY OF PRESENT ILLNESS: This is an elderly white male with a history of nonsmall cell lung cancer who has received chemotherapy over the past year the last one being in January. The patient apparently has metastatic nonsmall cell lung cancer with neuroendocrine features and has metastasis to the liver. He had a head and neck cancer diagnosed in 2009 and radiation treatment was given followed by chemotherapy. Following this, he developed nonsmall cell lung cancer which was poorly differentiated adenocarcinoma of the left upper lobe. He had a left upper lobectomy done and subsequently developed new lung lesions in 2017 which were biopsied. He started with chemotherapy and concurrent radiation therapy. The patient had been thoroughly stable up until this past week when he started to have increasing chest congestion, cough, wheezing, and apparently had travelled [place] recently. He was quite deconditioned over the past three to four weeks but did not have any fevers or chills. Denied any hemoptysis. He was coughing up a little thick brownish mucus. CT scan of the chest was done when he arrived at the emergency room and it showed multilobar ground glass patchy infiltrates consistent with either pneumonia, ARDS or pulmonary edema. He has been now started on broad-spectrum antibiotic coverage with Cefepime, Levaquin and Flagyl. He is on 02 at five liters. He has improved since yesterday and states his breathing is better and his congestion is less but he still has a cough. PAST MEDICAL HISTORY: 1. History of nonsmall cell lung cancer. 2. History of head and neck cancer in the past. 3. History of atrial fibrillation. 4. Lung biopsies. 5. Liver biopsies. 6. Previous left lower lobectomy. 7. TURP. 8. Cataract repairs. 9. He has had esophageal dilatations done. HABITS: The patient was a smoker for over thirty years and quit. No significant alcohol. MEDICATION LIST: Reviewed which includes: 1. Plavix 75 milligrams a day. 2. Lisinopril 20 milligrams daily. 3. Pravastatin 20 milligrams a day. 4. Synthroid 50 micrograms daily. 5. Heparin 5000 units daily. 6. [place] 5/325 PRN. ALLERGIES: NONE LISTED. FAMILY HISTORY: Noncontributory. REVIEW OF SYSTEMS: The patient has lost some weight. He has no leg swelling. He has some abdominal and epigastric distress. He has some anxiety. He denies any chest or abdominal pains. No headaches or blackout spells. No skin lesions. PHYSICAL EXAMINATION: GENERAL: This is a well-built elderly white male who is pale, alert and in no acute distress. He is on oxygen via nasal cannula. VITAL SIGNS: Blood pressure 110/60, pulse 88, respirations 22, temperature 98.2. HEAD, EYES, EARS, NOSE, THROAT: Head normocephalic. The pupils are reactive and equal. Tongue is dry. Throat is injected. Nasal mucosa is clear. NECK: The neck is supple with no venous distention. No bruits. No thyroid enlargement. CHEST: Equal movements with distant breath sounds with crackles at the lung bases, more so on the right side. HEART: Heart sounds are regular. S1-S2. No murmur. No S3. ABDOMEN: Abdomen soft and scaphoid. The liver is just felt below the right costal margin. The bowel sounds are active. EXTREMITIES: No edema. Peripheral pulses are diminished. NEUROLOGIC: Reflexes are 1+. No gross motor deficits. Cranial nerves are grossly intact. RECTAL: Rectal exam is deferred. IMPRESSION: 1. Bilateral pulmonary infiltrates with possible atypical pneumonia and/or pulmonary edema. 2. Interstitial lung disease. 3. Nonsmall cell lung cancer with metastatic disease status post chemotherapy. 4. Anemia of chronic disease. 5. COPD. 6. History of esophageal stricture with possible aspiration. PLAN: 1. The patient will be maintained on nebulized DuoNeb solution four times a day. 2. We will continue the antibiotic coverage including Cefepime 1 gram q. 8, Flagyl 500 milligrams q.8 and Levaquin 500 milligrams a day. 3. Solu-Medrol 40 milligrams IV q. 8 hours will be added. 4. The patient will have a follow up chest x-ray. 5. Incentive spirometry every two hours at the bedside. 6. Oxygen at 5 liters and wean down to 3 liters via nasal cannula. 7. The patient will have a follow up chest x-ray. 8. Blood gas study will be done. 9. Sputum will be send for culture and gram stain. I will follow the case with you Dr. Lee. Thank you for this consultation. MD JEWEL Ann/SAPPHIRE /8:33 PM /8:43 PM
[2017-04-30] MEDS: methylPREDNISolone SOD SUCC 40 MG/1 ML VIAL IV PUSH SCH (21:46)
[2017-05-01] VITALS (9 sets, daily range): BP systolic 112–123; BP diastolic 54–88; PULSE 80–98; RESP 17–20; TEMP 97.1–97.3; O2SAT 95–98
[2017-05-01] MEDS: metroNIDAZOLE 500 MG INJ 100 ML IV SCH ×3 (05:14→21:40)
[2017-05-01] MEDS: HEPARIN SODIUM - SQ 10,000 UNITS/ML VIAL SQ SCH ×2 (05:23→17:58)
[2017-05-01] MEDS: LEVOTHYROXINE SODIUM 50 MCG TAB PO SCH (05:24)
[2017-05-01] MEDS: methylPREDNISolone SOD SUCC 40 MG/1 ML VIAL IV PUSH SCH ×3 (05:29→21:40)
[2017-05-01] MEDS: CEFEPIME INJ 2,000 MG in SODIUM CHLORIDE 0.9% INJ 100 ML IV SCH ×2 (05:32→17:58)
--- NOTE | 2017-05-01 05:51 | RADRPT ---
EXAM DATE/TIME: 05/01/2017 04:09 [facility] COMPARISON: CHEST SINGLE AP, April 29, 2017, 12:42. INDICATIONS : Evaluate for pneumonia MEDICAL HISTORY : Carcinoma, lung. Chronic obstructive pulmonary disease. Hypertension. SURGICAL HISTORY : !/4 left lung removed ENCOUNTER: Subsequent ACUITY: 2 days PAIN SCORE: 7/10 LOCATION: Bilateral chest FINDINGS: A single view of the chest demonstrates right [id number] and superior vena cava. Bilateral airspac e disease present, slightly increased in the right upper lobe since April 29. Left pleural effusi on stable. Cardiomegaly. No pneumothorax. CONCLUSION: 1. Developing right upper lobe airspace disease most characteristic of pneumonia or aspiration. Basil ar airspace disease stable to slightly increased from April 29. Left effusion stable. Cardiomegal y. Sergey Espinosa MD on May 01, 2017 at 5:48 Board Certified Radiologist. This report was verified electronically.
[2017-05-01] MEDS: PRAVASTATIN SOD 20 MG TAB PO SCH (08:18)
[2017-05-01] MEDS: LISINOPRIL 20 MG TAB PO SCH (08:19)
[2017-05-01] MEDS: ASPIRIN EC 81 MG TABEC PO SCH (08:19)
[2017-05-01] MEDS: INSULIN NovoLIN REGULAR SUPPLEMENTAL SCALE SQ SCH ×4 (08:19→21:00)
[2017-05-01] MEDS: PANTOPRAZOLE SOD 40 MG DELAYED RELEASE TAB PO SCH (08:29)
[2017-05-01] MEDS: CLOPIDOGREL 75 MG TAB PO SCH (08:29)
[2017-05-01] MEDS: DOCUSATE SODIUM 50 MG/SENNA 8.6 MG TAB PO SCH ×2 (08:29→21:00)
[2017-05-01 08:37] LABS: HEMATOCRIT 36.5 % (39.0-51.0); MEAN CELL VOLUME 95.4 FL (80.0-100.0); MEAN CORPUSCULAR HEMOGLOBIN 30.5 PG (27.0-34.0); PLATELET COUNT 124 TH/MM3 (150-450); RED BLOOD COUNT 3.83 MIL/MM3 (4.50-5.90); RED CELL DISTRIBUTION WIDTH 18.3 % (11.6-17.2); REVIEW FLAG FINAL; WHITE BLOOD COUNT 5.2 TH/MM3 (4.0-11.0)
[2017-05-01 08:57] LABS: BICARBONATE 20.4 MEQ/L (21.0-32.0)
[2017-05-01] MEDS: RESP: ALBUTEROL 2.5 MG/IPRATROPIUM 0.5 MG NEB (SCH) NEB ×4 (09:35→19:27)
--- NOTE | 2017-05-01 10:27 | PD.ONC.PN ---
Subjective Subjective Remarks Afebrile overnight. patient resting in bed in nad. states he is breathing a bit better today. Son at bedside feels the patient is coughing less. Objective Data Date Time Temp Pulse Resp B/P (MAP) Pulse Ox O2 Delivery O2 Flow Rate FiO2 05/01/17 09:35 96 Nasal Cannula 6.00 05/01/17 08:52 80 17 117/61 (79) 98 05/01/17 05:41 97 Simple Mask 6.00 05/01/17 05:00 97.1 82 18 123/59 (80) 95 05/01/17 00:28 04/30/17 23:00 91 04/30/17 22:57 Nasal Cannula 6.00 04/30/17 20:33 97 Nasal Cannula 6.00 04/30/17 20:00 96.5 82 16 123/66 (85) 95 04/30/17 16:00 97.4 68 18 99/58 (72) 97 04/30/17 12:32 117 04/30/17 12:29 96 Nasal Cannula 6.00 04/30/17 12:10 96 Nasal Cannula 6.00 04/30/17 12:00 97.4 91 16 94/58 (70) 97 05/01/17 05/01/17 05/01/17 07:00 15:00 23:00 Intake Total 100 ml Balance 100 ml Result Diagram: 05/01/1717 05/01/1717 Laboratory Results Laboratory Tests Test 05/01/17 07:17 White Blood Count 5.2 TH/MM3 Red Blood Count 3.83 MIL/MM3 Hemoglobin 11.7 GM/DL Hematocrit 36.5 % Mean Corpuscular Volume 95.4 FL Mean Corpuscular Hemoglobin 30.5 PG Mean Corpuscular Hemoglobin Concent 32.0 % Red Cell Distribution Width 18.3 % Platelet Count 124 TH/MM3 Mean Platelet Volume 9.1 FL Blood Urea Nitrogen 12 MG/DL Creatinine 0.62 MG/DL Random Glucose 175 MG/DL Calcium Level 7.5 MG/DL Sodium Level 134 MEQ/L Potassium Level 4.0 MEQ/L Chloride Level 101 MEQ/L Carbon Dioxide Level 20.4 MEQ/L Anion Gap 13 MEQ/L Estimat Glomerular Filtration Rate 126 ML/MIN Culture Results Microbiology Date/Time Source Procedure Growth Status 04/29/17 12:15 Blood Peripheral Aerobic Blood Culture - Preliminary NO GROWTH IN 1 DAY Resulted 04/29/17 12:15 Blood Peripheral Anaerobic Blood Culture - Preliminary NO GROWTH IN 1 DAY Resulted 04/29/17 12:10 Blood Peripheral Aerobic Blood Culture - Preliminary NO GROWTH IN 1 DAY Resulted 04/29/17 12:10 Blood Peripheral Anaerobic Blood Culture - Preliminary NO GROWTH IN 1 DAY Resulted 04/30/17 21:50 Urine Clean Catch Legionella Antigen - Final PRESUMPTIVE NEGATIVE FOR LEGIONELLA P... Complete 04/30/17 21:50 Urine Clean Catch Streptococcus pneumoniae Antigen (M - Final PRESUMPTIVE NEGATIVE FOR STREPTOCOCCU... Complete Administered Medications Medications (Trade) Dose Ordered Sig/Darron Route PRN Reason Start Time Stop Time Status Last Admin Dose Admin Sodium Chloride 1,000 ml @ 83 mls/hr Q12H3M IV 04/29/17 16:30 04/30/17 03:53 Heparin Sodium (Porcine) (Heparin Inj) 5,000 units Q12H SQ 04/29/17 17:00 05/01/17 05:23 Aspirin (Ecotrin Ec) 81 mg DAILY PO 04/30/17 09:00 05/01/17 08:19 Acetaminophen/ Hydrocodone Bitart ([place] 5-325 Mg) 1 tab Q6H PRN PO PAIN 04/29/17 14:45 04/30/17 05:58 Levothyroxine Sodium (Synthroid) 50 mcg DAILY@0600 PO 04/30/17 06:00 05/01/17 05:24 Lisinopril (Prinivil) 20 mg DAILY PO 04/30/17 09:00 05/01/17 08:19 Pravastatin Sodium (Pravachol) 20 mg DAILY PO 04/30/17 09:00 05/01/17 08:18 Insulin Human Regular (NovoLIN R SUPPLEMENTAL SCALE) 1 ACHS SLIDING SCALE SQ 04/29/17 17:00 05/01/17 08:19 Cefepime HCl 2000 mg/Sodium Chloride 100 ml @ 200 mls/hr Q12H IV 04/30/17 06:00 05/01/17 05:32 Levofloxacin/ Dextrose 100 ml @ 100 mls/hr Q24H IV 04/30/17 15:00 04/30/17 15:06 Metronidazole 100 ml @ 100 mls/hr Q8H IV 04/29/17 21:00 05/01/17 05:14 Methylprednisolone Sodium Succinate (SoluMEDROL INJ) 40 mg Q8HR IV PUSH 04/30/17 22:00 05/01/17 05:29 Albuterol/ Ipratropium (Duoneb Neb) 1 ampule QID NEB NEB 04/30/17 20:00 05/01/17 09:35 Objective Remarks GENERAL: Elderly male sitting up in chair next to bed in [facility]. SKIN: Warm and dry. HEAD: Normocephalic. EYES: No injection or drainage. NECK: Supple, trachea midline. CARDIOVASCULAR: +S1/S2 RESPIRATORY: diminished at bases. scattered rhonchi. On 5L O2 via SM GASTROINTESTINAL: Abdomen soft, non-tender, nondistended. EXTREMITIES: No cyanosis NEUROLOGICAL: awake and alert, normal speech. moving all extremities. Assessment/Plan Problem List: (1) Metastatic lung cancer (metastasis from lung to other site) ICD Codes: C34.90 - Malignant neoplasm of unspecified part of unspecified bronchus or lung Plan: --further treatment on outpatient basis after current conditions have resolved. History: --History of vxo-makxq-ajgs lung cancer diagnosed at stage I; pT1 pN0 poorly differentiated adenocarcinoma. underwent left upper lobe lobectomy. --was a limited stage disease initially and was treated with concurrent chemotherapy (Carbo/VP16) and radiation treatments. 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 (3) Pneumonia ICD Codes: J18.9 - Pneumonia, unspecified organism Status: Acute Plan: --on Cefepime Levaquin Flagyl --BC, 04/29, no growth CTA on 04/29 showed groundglass opacities concerning for pneumonia or ARDS Assessment 76y/o male with metastatic xgl-gqxgj-oldn lung cancer with neuroendocrine features, admitted with dyspnea. h/o Atrial fibrillation. Copd. Diabetes. Hypercholesterolemia Hypertension. Obstructive sleep apnea. Peripheral neuropathy DVT prophylaxis: Heparin q 12 on Plavix and ASA Plan 1. continue antibiotics 2. continue steroids 3. monitor clinically for improvement. Attending Statement The exam, history, and the medical decision-making described in the above note were completed with the assistance of the mid-level provider. I reviewed and agree with the findings presented. I attest that I had a [id number] encounter with the patient on the same day, and personally performed and documented my assessment and findings in the medical record. On supplemental O2 clinically better less cough honey thickened liquids IV solumedrol Cef/levaquin and flagyl d/w rn o/n events reviewed Problem Qualifiers (1) Pneumonia: Qualified Codes: J18.9 - Pneumonia, unspecified organism Emily Gordon May 01, 2017 10:27 Gilbert Edwards MD May 01, 2017 11:59
[2017-05-01] MEDS: SODIUM CHLOR 0.9% 1000 ML INJ 1,000 ML IV SCH ×2 (11:13→23:16)
--- NOTE | 2017-05-01 13:58 | HHI.PR ---
Subjective Remarks Sitting up in the chair this am and now back in bed restless , on steroids Currently on NC, resp. 28 Alert answers questions appropriately Gradual improvement, supportive care (Sanjuana Cunningham) Objective Objective Results - Vital Signs Date Time Temp Pulse Resp B/P (MAP) Pulse Ox O2 Delivery O2 Flow Rate FiO2 05/01/17 12:19 98 18 112/59 (76) 97 05/01/17 09:45 Nasal Cannula 6.00 05/01/17 09:35 96 Nasal Cannula 6.00 05/01/17 08:52 80 17 117/61 (79) 98 05/01/17 05:41 97 Simple Mask 6.00 05/01/17 05:00 97.1 82 18 123/59 (80) 95 05/01/17 00:28 04/30/17 23:00 91 04/30/17 22:57 Nasal Cannula 6.00 04/30/17 20:33 97 Nasal Cannula 6.00 04/30/17 20:00 96.5 82 16 123/66 (85) 95 04/30/17 16:00 97.4 68 18 99/58 (72) 97 I/O 04/30/17 04/30/17 04/30/17 05/01/17 05/01/17 05/01/17 07:00 15:00 23:00 07:00 15:00 23:00 Intake Total 2093 ml 100 ml Balance 2093 ml 100 ml Intake IV Total 2093 ml 100 ml # Voids 2 (Sanjuana Cunningham) Result Diagram: 05/01/1771605/01/1717 ROS General: Fatigue, Weakness, Other (10 point ROS done) Pulmonary: Cough, SOB Neuro/MS: Other (restless at times, but is sleeping at brief intervals) (Sanjuana Cunningham) Physical Exam Physical Exam PHYSICAL EXAMINATION GENERAL: This is a male resting in the bed. He is alert and awake, tachpnea, HEAD: Normocephalic without any lesion or mass noted. Facial features appear symmetric. OROPHARYNGEAL: Oropharynx without erythema or edema., dry NECK: Supple. Trachea midline without deviation. CARDIAC: Regular rhythm, regular rate, S1 and S2 are heard. LUNGS: Diminished to auscultation bilaterally. no active wheeze, cough while in rm ABDOMEN: Soft, nontender, no organomegaly or masses. Bowel sounds are heard in all four quadrants. No rebound. No guarding. EXTREMITIES: tract edema. Pulses equal bilateral. NEUROLOGICAL: Patient mood and affect appropriate. No focal deficit SKIN:Warm and moist (Sanjuana Cunningham) A/P Assessment and Plan vitals signs reviewed, BP stable at 112/59, afebrile labs, Na 134, 11.7 hgb, BS 175 Check BMP am Sepsis Continue antibiotic therapy, treatment of pna. atrial fib, RVR, heart rate now controlled Multilobar pna/ ARDS, O2 now per NC/ ok to use his own Bipap at hs. IV hydration gentle continues, no active wheezing. Family in room, will continue duo nebs, and close respiratory evaluation, pulmonary consult appreciate, continue regimen Hx throat ca, lung ca with liver mets poorly differentiated adenocarcinoma. underwent left upper lobe lobectomy in the past treatment chemotherapy and radiation treatments. Now has metastatic disease swallow eval to check for any dysphagia done, patient now on thicken liquids , foods. No cough noted now Head and neck cancer, currently in remission COPD /emphyzema Planned wean high concentration O2 Hyponatremia 134 this morning, gradual mild resolve, DM, 2, non insulin dependent Accu-Cheks before meals and at bedtime, ADA diet, monitor for medical management, BS 175, probable secondary to steroids Dyspnea, and cough with coarse rhonchi, sputum check for culture and sensitivity O2 now weaned to NC, tachypnea at 26-28, but compensated. Mouth breather. Family bringing patient's Bipap machine from home for pm/ and prn. Discussed with patient and son Discussed with nurse Discussed with Dr. bueno, seen on his behalf CODE STATUS DO NOT RESUSCITATE, we'll use BiPAP or CPAP if needed, otherwise full aggressive care Patient has cancer in multiple sites, received chemotherapy approximately a month ago (Sanjuana Cunningham) Assessment and Plan pt is seen & examined d/w pt & his daughter at bedside in detail clinically improving d/w sanjuana dela cruz w above cont current tx will f/u (Antonio Bueno MD) Sanjuana Cunningham May 01, 2017 13:58 Antonio Bueno MD May 01, 2017 20:49
[2017-05-01] MEDS: LEVOFLOXACIN 500 MG PREMIX INJ 100 ML IV SCH (14:54)
--- NOTE | 2017-05-01 18:49 | HHI.PR ---
Subjective Remarks He has some cough and wheezing. CXR shows bilateral infiltrates. O2 sat 95 on 4 L. Objective Vital Signs Date Time Temp Pulse Resp B/P (MAP) Pulse Ox O2 Delivery O2 Flow Rate FiO2 05/01/17 16:51 96 Nasal Cannula 4.00 05/01/17 16:39 97.3 90 20 113/54 (73) 96 05/01/17 12:19 98 18 112/59 (76) 97 05/01/17 09:45 Nasal Cannula 6.00 05/01/17 09:35 96 Nasal Cannula 6.00 05/01/17 08:52 80 17 117/61 (79) 98 05/01/17 05:41 97 Simple Mask 6.00 05/01/17 05:00 97.1 82 18 123/59 (80) 95 05/01/17 00:28 04/30/17 23:00 91 04/30/17 22:57 Nasal Cannula 6.00 04/30/17 20:33 97 Nasal Cannula 6.00 04/30/17 20:00 96.5 82 16 123/66 (85) 95 I/O 04/30/17 04/30/17 04/30/17 05/01/17 05/01/17 05/01/17 07:00 15:00 23:00 07:00 15:00 23:00 Intake Total 2093 ml 100 ml 240 ml Balance 2093 ml 100 ml 240 ml Intake Oral 240 ml IV Total 2093 ml 100 ml # Voids 2 1 Result Diagram: 05/01/1771605/01/17716 Objective Remarks GENERAL: This is a well-built elderly white male who is pale, alert and in no acute distress. He is on oxygen via nasal cannula. HEAD, EYES, EARS, NOSE, THROAT: Head normocephalic. The pupils are reactive and equal. Tongue is dry. Throat is clear. Nasal mucosa is clear. NECK: The neck is supple with no venous distention. No bruits. No thyroid enlargement. CHEST: Equal movements with distant breath sounds with crackles at the lung bases, more so on the right side. HEART: Heart sounds are regular. S1-S2. No murmur. No S3. ABDOMEN: Abdomen soft and scaphoid. The liver is just felt below the right costal margin. The bowel sounds are active. EXTREMITIES: No edema. Peripheral pulses are diminished. NEUROLOGIC: Reflexes are 1+. No gross motor deficits. Cranial nerves are grossly intact. RECTAL: Rectal exam is deferred. Assessment and Plan Assessment and Plan IMPRESSION: 1. Bilateral pulmonary infiltrates with possible atypical pneumonia and/or pulmonary edema. 2. Interstitial lung disease. 3. Non small cell lung cancer with metastatic disease status post chemotherapy. 4. Anemia of chronic disease. 5. COPD. 6. History of esophageal stricture with possible aspiration. 7. CHRIS Plan : 1. Cont Antibiotics, Cefipime , Levaquin. 2. O2 4 L. 3. Nebs qid , duoneb. 4. Cont Solumedrol 40 mg IV q8h. 5. Continue Symbicort , 2 puffs bid 6. CBC,BMP in am 7. CPAP mask at . Radha Barger MD May 01, 2017 18:49
[2017-05-02] VITALS (8 sets, daily range): BP systolic 106–143; BP diastolic 60–98; PULSE 51–87; RESP 16–20; TEMP 97.1–98.1; O2SAT 95–98
[2017-05-02] MEDS: CEFEPIME INJ 2,000 MG in SODIUM CHLORIDE 0.9% INJ 100 ML IV SCH (05:12)
[2017-05-02] MEDS: metroNIDAZOLE 500 MG INJ 100 ML IV SCH ×3 (05:12→21:43)
[2017-05-02] MEDS: LEVOTHYROXINE SODIUM 50 MCG TAB PO SCH (05:13)
[2017-05-02] MEDS: HEPARIN SODIUM - SQ 10,000 UNITS/ML VIAL SQ SCH ×2 (05:13→17:52)
[2017-05-02] MEDS: methylPREDNISolone SOD SUCC 40 MG/1 ML VIAL IV PUSH SCH ×3 (05:13→21:43)
[2017-05-02] MEDS: INSULIN NovoLIN REGULAR SUPPLEMENTAL SCALE SQ SCH ×4 (08:00→21:47)
--- NOTE | 2017-05-02 08:29 | MH ---
cc: PAWEL SAEED MD DATE OF ADMISSION 04/29/2017 DATE OF 1940 CHIEF COMPLAINT Shortness of breath, fever, increased cough. TRAVEL HISTORY Travel in last 30 days none. HISTORY OF PRESENT ILLNESS This is a pleasant 76-year-old white male who was being seen per Dr. Wood today in the office for increased dyspnea and shortness of breath. The patient had been in his usual state of health up until approximately a week ago but noticed fever approximately 3 days ago, the high noted it was 101.7 according to the daughter. The patient also has had a chronic cough due to lung cancer, for several years but cough has increased over the past 2-3 days. He has also had a decreased to no appetite and very low p.o. intake for 3 days. The patient initially was brought into the emergency room and was hypotensive. Blood pressure systolic in the 80s and tachycardic, heart rate was as high as 130 but now is around 100 to 103. The patient is alert, able to answer simple questions. His son and daughter are with him and are given most of his history. According to the patient there was a concern that he may have a PE, This was ruled out per CT scan. The patient received his last chemotherapy approximately 2 months ago. The patient complains of chronic pain in his left lateral chest region. He has a significant history of throat cancer approximately 7 years ago diagnosed, was then diagnosed with lung cancer in 2016 and throat cancer which has metastasized to the liver. The patient has some tachypneic respirations but appears to be compensated with O2 at 2 liters. Denies any headache. He does complain of some weakness and fatigue. MEDICAL HISTORY According to the family and according to the record atrial fibrillation, lung and throat cancer that metastasized to the liver in November of 2015. Cardiovascular disease, hyperlipidemia chemotherapy x2 rounds. The second round was completed approximately 2 months ago. Diabetes type 2, non-insulin dependent. Obstructive sleep apnea. The patient uses C-PAP at home. Hypertension. Neuropathy of the feet and fingers. Radiation treatment. ALLERGIES No known. MEDICATIONS Reported and active. 1. Pain management with Docena p.o. 2. Indomethacin. 3. Propanolol. 4. Lasix. 5. levofloxacin. 6. Ecotrin. 7. Simvastatin. 8. Metformin. 9. Plavix 10. Lisinopril. SOCIAL HISTORY The patient is currently but has a girlfriend who assists him. His son and daughter also live close by. Otherwise, the patient lives alone. He denies any current smoking, alcohol or illicit drugs. He quit smoking and drinking 8 years ago. The patient does note that he lived in the [facility] area for approximately 20 years, moved back to the [facility] 7 to 8 years ago but has been in the [facility] for the past 7 to 8 years with his illness. REVIEW OF SYSTEMS A 14 point review was obtained, positives noted in the HPI which include tachycardia, hypotension, fevers, cough, decreased appetite, shortness of breath and dyspnea, increased cough with productive sputum, clear and or cream color, obstructive sleep apnea and uses C-PAP machine at home. Any other systems mentioned, otherwise negative or unremarkable. PHYSICAL EXAMINATION VITAL SIGNS: Temperature is 98.3, pulse 103, respirations 37, blood pressure 121/63, was 82/57 on admission, O2 sat 98 currently nasal cannula oxygen at 2 liters. GENERAL: Well-developed, obese elderly white male, looks to be his stated age, resting on a stretcher. He is actively tachypneic respirations but compensated with his oxygen. SKIN: Pale, kristopher, multiple moles, no rashes, warm and dry. HEENT: Atraumatic, normocephalic. GARIMA at two. Tongue orally is dry. No scleral icterus. NECK: Neck is supple. CARDIOVASCULAR: S1-S2, rhythm is irregular. No obvious murmur or gallop. He has a trace of lower extremity edema and his extremities are warm to touch. LUNGS: Lungs have some mild expiratory wheezes in the upper gonzales, rhonchi present. He does have some decreased breath sounds throughout the left and the right lung. The left appears to be more decreased than the right. Decreased breath sounds in the left lower base. ABDOMEN: Abdomen is round, obese, soft, nontender, nondistended. Bowel sounds are soft but present. MUSCULOSKELETAL: Moves his extremities with purpose. He is weak but can overcome resistance. No obvious deformities. NEUROLOGICALLY: His hand medical billing coordinator are equal. Speech is clear but limited secondary to his shortness of breath. He is a fairly good historian. PSYCHIATRIC: Mood and affect are appropriate. DIAGNOSTIC DATA Sodium 130, potassium 4.2, chloride 96, carbon dioxide 24.4, amnion gap 10, BUN 15, creatinine 0.99, GFR 73, random glucose 125, lactic acid 2.7, calcium 8.3, magnesium 1.2, AST 23, ALT 11, alkaline phosphatase 106, total creatinine kinase 41. Troponin less than 0.02. Total protein 8.3, albumin 3.5. PT/INR 1.3, WBC count 6.7, RBC 4.34, hemoglobin 13.3, hematocrit 41, platelet count 145. RDW 18, neutrophil diff percentage auto 83.1. Lymphocyte 7.3, monocyte 9.4. IMAGING STUDIES Chest x-ray shows bilateral medial lower zone airspace disease left more prominent than the right. Differentials include pneumonia and aspiration, slightly more prominent small left-sided pleural effusion. CT angiography shows negative for PE. Bilateral ground glass opacities, since 04/22/2017 CT scan these opacities were new at that time. Other concerning findings are progressive multilobular pneumonia, atypical pneumonia and developing ARDS. Moderate upper lobe predominant emphysema with postsurgical features of the left lower lobectomy. Gross stable mediastinal adenopathy. Cavitary 3 cm right basilar lung mass and apparent hepatic metastasis. ASSESSMENT/PLAN Multilobular pneumonia with possible ARDS. Sepsis with hypotension and tachycardia, hyponatremia, diabetes type 2, mild hyperglycemia, hyponatremia, significant history of lung cancer which has metastasized to the liver. The patient finished chemotherapy round approximately 1 month ago and was referred to the hospital per Dr. Edwards to be evaluated. The patient will be admitted in status, 1800 calorie ADA diabetic diet. Magnesium, we got to say hypomagnesemia, hypocalcemia, atrial fibrillation with RVR uncontrolled chronic. Hypoxemia and history of obstructive sleep apnea and COPD. PLAN Our current plan is to continue to monitor on telemetry. IV fluids were initially started in the emergency room with a bolus. The patient received a dose of Rocephin, levothyroxine and Maxipime. Medications were reconciled from home as warranted. Will monitor bowel regimen with stool softeners as well as laxatives. Electrocardiogram has been done. Activity will be out of bed but only with assistance. DVT prophylaxis with Plavix as well as aspirin, heparin. The patient received two bags of magnesium sulfate and will recheck his labs in the morning. We will continue his levothyroxine. Will get a sputum culture. We have blood cultures pending. I have discussed with the patient in depth his wishes and code status with his two children present. The daughter states that the patient has a living will but states he wants full aggressive care but in the event of his heart stopping or his breathing stopping he does not want to be placed on ventilator. He does not want CPR or shock. The patient's code status will be DNR/DNI, otherwise, full aggressive care. The daughter is going to bring a copy of his living will or his advanced directives into the hospital to be placed on the chart. The patient does use CPAP at home. He is willing to use CPAP or BiPap if needed for his respiratory status but again states no intubation. We will continue to support. Dictated by: NATHALY Moreno MD FLAVIA Macias/HE /3:58 PM /8:26 AM
[2017-05-02] MEDS: DOCUSATE SODIUM 50 MG/SENNA 8.6 MG TAB PO SCH ×2 (09:00→21:43)
[2017-05-02] MEDS: PANTOPRAZOLE SOD 40 MG DELAYED RELEASE TAB PO SCH (09:43)
[2017-05-02] MEDS: LISINOPRIL 20 MG TAB PO SCH (09:45)
[2017-05-02] MEDS: ASPIRIN EC 81 MG TABEC PO SCH (09:45)
[2017-05-02] MEDS: PRAVASTATIN SOD 20 MG TAB PO SCH (09:46)
[2017-05-02] MEDS: CLOPIDOGREL 75 MG TAB PO SCH (09:47)
[2017-05-02 10:59] LABS: BICARBONATE 22.5 MEQ/L (21.0-32.0); POTASSIUM 3.8 MEQ/L (3.5-5.1)
--- NOTE | 2017-05-02 11:15 | PD.ONC.PN ---
Subjective Subjective Remarks Afebrile overnight. Feels his breathing has improved somewhat. Less coughing. Objective Data Date Time Temp Pulse Resp B/P (MAP) Pulse Ox O2 Delivery O2 Flow Rate FiO2 05/02/17 08:56 97.5 81 18 106/61 (76) 98 05/02/17 08:34 96 Nasal Cannula 4.00 05/02/17 05:00 97.5 87 18 108/60 (76) 96 05/02/17 00:07 Nasal Cannula 6.00 05/02/17 00:00 97.1 51 18 136/98 (111) 95 05/01/17 20:00 97.2 98 20 118/88 (98) 95 05/01/17 19:29 95 Nasal Cannula 4.00 05/01/17 16:51 96 Nasal Cannula 4.00 05/01/17 16:39 97.3 90 20 113/54 (73) 96 05/01/17 12:19 98 18 112/59 (76) 97 05/02/17 05/02/17 05/02/17 07:00 15:00 23:00 Intake Total 200 ml Balance 200 ml Result Diagram: 05/01/17 0717 05/02/17 1000 Laboratory Results Laboratory Tests Test 05/02/17 10:00 Blood Urea Nitrogen 14 MG/DL Creatinine 0.62 MG/DL Random Glucose 189 MG/DL Calcium Level 7.3 MG/DL Sodium Level 137 MEQ/L Potassium Level 3.8 MEQ/L Chloride Level 105 MEQ/L Carbon Dioxide Level 22.5 MEQ/L Anion Gap 10 MEQ/L Estimat Glomerular Filtration Rate 126 ML/MIN Culture Results Microbiology Date/Time Source Procedure Growth Status 04/29/17 12:15 Blood Peripheral Aerobic Blood Culture - Preliminary NO GROWTH IN 3 DAYS Resulted 04/29/17 12:15 Blood Peripheral Anaerobic Blood Culture - Preliminary NO GROWTH IN 3 DAYS Resulted 04/29/17 12:10 Blood Peripheral Aerobic Blood Culture - Preliminary NO GROWTH IN 3 DAYS Resulted 04/29/17 12:10 Blood Peripheral Anaerobic Blood Culture - Preliminary NO GROWTH IN 3 DAYS Resulted 04/30/17 21:50 Urine Clean Catch Legionella Antigen - Final PRESUMPTIVE NEGATIVE FOR LEGIONELLA P... Complete 04/30/17 21:50 Urine Clean Catch Streptococcus pneumoniae Antigen (M - Final PRESUMPTIVE NEGATIVE FOR STREPTOCOCCU... Complete Administered Medications Medications (Trade) Dose Ordered Sig/Darron Route PRN Reason Start Time Stop Time Status Last Admin Dose Admin Sodium Chloride 1,000 ml @ 83 mls/hr Q12H3M IV 04/29/17 16:30 04/30/17 03:53 Heparin Sodium (Porcine) (Heparin Inj) 5,000 units Q12H SQ 04/29/17 17:00 05/02/17 05:13 Aspirin (Ecotrin Ec) 81 mg DAILY PO 04/30/17 09:00 05/02/17 09:45 Clopidogrel Bisulfate (Plavix) 75 mg DAILY PO 04/30/17 09:00 05/02/17 09:47 Acetaminophen/ Hydrocodone Bitart ([place] 5-325 Mg) 1 tab Q6H PRN PO PAIN 04/29/17 14:45 04/30/17 05:58 Levothyroxine Sodium (Synthroid) 50 mcg DAILY@0600 PO 04/30/17 06:00 05/02/17 05:13 Lisinopril (Prinivil) 20 mg DAILY PO 04/30/17 09:00 05/02/17 09:45 Pantoprazole Sodium (Protonix) 40 mg DAILY PO 04/30/17 09:00 05/02/17 09:43 Pravastatin Sodium (Pravachol) 20 mg DAILY PO 04/30/17 09:00 05/02/17 09:46 Insulin Human Regular (NovoLIN R SUPPLEMENTAL SCALE) 1 ACHS SLIDING SCALE SQ 04/29/17 17:00 05/02/17 08:00 Cefepime HCl 2000 mg/Sodium Chloride 100 ml @ 200 mls/hr Q12H IV 04/30/17 06:00 05/02/17 05:12 Levofloxacin/ Dextrose 100 ml @ 100 mls/hr Q24H IV 04/30/17 15:00 05/01/17 14:54 Metronidazole 100 ml @ 100 mls/hr Q8H IV 04/29/17 21:00 05/02/17 05:12 Methylprednisolone Sodium Succinate (SoluMEDROL INJ) 40 mg Q8HR IV PUSH 04/30/17 22:00 05/02/17 05:13 Albuterol/ Ipratropium (Duoneb Neb) 1 ampule QID NEB NEB 04/30/17 20:00 05/01/17 19:27 Objective Remarks GENERAL: Elderly male upright in chair next to bed. multiple family members in room. SKIN: Warm and dry. HEAD: Normocephalic. EYES: No injection or drainage. NECK: Supple, trachea midline. CARDIOVASCULAR: IRR RESPIRATORY: diminished at bases. scattered rhonchi. On 4L O2 via NC GASTROINTESTINAL: Abdomen soft, non-tender, nondistended. EXTREMITIES: No cyanosis NEUROLOGICAL: awake, alert and oriented. no obvious focal deficit. Assessment/Plan Problem List: (1) Metastatic lung cancer (metastasis from lung to other site) ICD Codes: C34.90 - Malignant neoplasm of unspecified part of unspecified bronchus or lung Plan: --further treatment on outpatient basis after current conditions have resolved. History: --History of jyd-duaei-bqgc lung cancer diagnosed at stage I; pT1 pN0 poorly differentiated adenocarcinoma. underwent left upper lobe lobectomy. --was a limited stage disease initially and was treated with concurrent chemotherapy (Carbo/VP16) and radiation treatments. 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 (3) Pneumonia ICD Codes: J18.9 - Pneumonia, unspecified organism Status: Acute Plan: --on Cefepime Levaquin Flagyl --BC, 04/29, no growth CTA on 04/29 showed groundglass opacities concerning for pneumonia or ARDS Assessment 76y/o male with metastatic tmb-qgxml-khlx lung cancer with neuroendocrine features, admitted with dyspnea. h/o Atrial fibrillation. Copd. Diabetes. Hypercholesterolemia Hypertension. Obstructive sleep apnea. Peripheral neuropathy DVT prophylaxis: Heparin q 12 on Plavix and ASA Plan 1. monitor CBC 2. continue antibiotics and steroids. Attending Statement The exam, history, and the medical decision-making described in the above note were completed with the assistance of the mid-level provider. I reviewed and agree with the findings presented. I attest that I had a [id number] encounter with the patient on the same day, and personally performed and documented my assessment and findings in the medical record. Problem Qualifiers (1) Pneumonia: Qualified Codes: J18.9 - Pneumonia, unspecified organism Emily Gordon May 02, 2017 11:15 Gilbert Edwards MD May 02, 2017 22:07
[2017-05-02 11:18] LABS: CALCIUM-PROTEIN CORRECTED 7.4 MG/DL (8.5-10.1)
[2017-05-02] MEDS: SODIUM CHLOR 0.9% 1000 ML INJ 1,000 ML IV SCH (11:19)
[2017-05-02] MEDS: RESP: ALBUTEROL 2.5 MG/IPRATROPIUM 0.5 MG NEB (SCH) NEB ×3 (11:43→19:42)
--- NOTE | 2017-05-02 15:16 | HHI.FF ---
Face to Face Verification Diagnosis: (1) Metastatic lung cancer (metastasis from lung to other site) (2) Pneumonia (3) Sepsis Physical Therapy Order: Evaluate and Treat Home Health Nursing Order: Medical education Signs/symptoms of disease process Oxygen administration education Nursing assessment with vital signs I have seen patient Rigoberto CastroJr on 05/02/17. My clinical findings support the need for the requested home health care services because: Patient has SOB Deconditioned w/ increased weakness I certify that my clinical findings support that this patient is homebound because: Hx COPD- exertion dyspnea/weakness Unsteady gait/balance Unsafe to leave home unassisted Lara No. [facility] May 02, 2017 15:16
--- NOTE | 2017-05-02 15:32 | HHI.PR ---
Subjective Subjective Remarks SOB with activity some cough no cp overall, states he's a little better appetite okay no fever oxygen at 4L/NC, sats 96 has been out of bed to bathroom daughter at bsd Review of Systems Constitutional Constitutional Remarks 12 point ros completed, negative except as noted above Vitals/Results Intake & Output 05/02/17 05/02/17 05/03/17 15:00 23:00 07:00 # Bowel Movements 1 Vital Signs Vital Signs Date Time Temp Pulse Resp B/P (MAP) Pulse Ox O2 Delivery O2 Flow Rate FiO2 05/02/17 13:19 97.6 87 16 123/62 (82) 96 05/02/17 08:56 97.5 81 18 106/61 (76) 98 05/02/17 08:49 Nasal Cannula 4.00 05/02/17 08:34 96 Nasal Cannula 4.00 05/02/17 05:00 97.5 87 18 108/60 (76) 96 05/02/17 00:07 Nasal Cannula 6.00 05/02/17 00:00 97.1 51 18 136/98 (111) 95 05/01/17 20:00 97.2 98 20 118/88 (98) 95 05/01/17 19:29 95 Nasal Cannula 4.00 05/01/17 16:51 96 Nasal Cannula 4.00 05/01/17 16:39 97.3 90 20 113/54 (73) 96 CBC/BMP: 05/01/17 0717 05/02/17 1000 Lab Results Laboratory Tests Test 05/02/17 10:00 Blood Urea Nitrogen 14 MG/DL Creatinine 0.62 MG/DL Random Glucose 189 MG/DL Total Protein 7.0 GM/DL Calcium Level 7.3 MG/DL Sodium Level 137 MEQ/L Potassium Level 3.8 MEQ/L Chloride Level 105 MEQ/L Carbon Dioxide Level 22.5 MEQ/L Anion Gap 10 MEQ/L Estimat Glomerular Filtration Rate 126 ML/MIN Protein Corrected Calcium 7.4 MG/DL Physical Exam General General Appearance: Well Developed, No Acute Distress, Comfortable Eyes Eye Exam: Pupils Equal, Pupils Reactive Ears & Nose Ears & Nose Exam: Nasal Mucosa [place] Throat Throat Exam: Oral Mucosa [place] & Moist Neck Neck Exam: Neck Supple, Trachea Midline Pulmonary Resp Exam: Breath Sounds Equal Resp Remarks scattered ronchi Cardiology CV Exam: Regular, Murmur Gastrointestinal/Abdomen GI Exam: Soft, Non-Tender, Bowel Sounds Present, Non-Distended Musculoskeletal MS Exam: Joints Intact Integumentary Skin Exam: Warm, Dry Extremeties Extremities Exam: No Edema, Pedal Pulses Palpable Neurologic Neuro Exam: Alert, Awake, Oriented, Speech Clear, Moving All Extremities, No Focal Deficits Psychiatric Psych Exam: Appropriate Responses VTE Prophylaxis VTE Prophylaxis Meds: Heparin Assessment/Plan Assessment/Plan Sepsis Bibasilar PNA -continue abx, follow cultures -jul. IVF -improving slowly, bp better, no fever COPD Sleep apnea -continue supplemental oxygen -Duonebs -IV steroids -Bipap at HS -appreciate pulm input Atrial fib, RVR, heart rate now controlled -continue with med management Metastatic lung cancer History of guk-uyndc-rxbg lung cancer diagnosed at stage I; pT1 pN0 poorly differentiated adenocarcinoma. underwent left upper lobe lobectomy. 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 History of head and neck cancer s/p concurrent radiation treatments with chemotherapy and is currently in remission. -Oncology following -speech therapy eval, recommendation noted, continued with thicken fluids, no cough noted Hyponatremia -134 this morning, gradual mild resolve, Hypocalcemia -replace calcium DM, 2, non insulin dependent -Accu-Cheks before meals and at bedtime, ADA diet, monitor for medical management -blood glucose elevated, sec. to steroids Hx HTN, BP running low 100s -adjust Lisinopril Hx afib, stable -continue to monitor PPI for GI prophylaxis Heparin SQ for DVT prophylaxis DNR status Poor prognosis, pt. accepting of diagnosis. States he has 3 months, wants to live at peace at home. Has support from family. CM for DC planning PT eval today poss dc in 1-2 days Discussed with patient and son Discussed with nurse Discussed with Pt. was seen by myself and Dr. Bueno, this note is written on his behalf. Lara No May 02, 2017 15:32
[2017-05-02] MEDS: LEVOFLOXACIN 500 MG PREMIX INJ 100 ML IV SCH (15:45)
[2017-05-02] MEDS ORDERED: CALCIUM GLUCONATE INJ 1 GM in SODIUM CHLORIDE 0.9% INJ 100 ML IV ONE (17:00)
--- NOTE | 2017-05-02 18:07 | HHI.PR ---
Subjective Remarks He is much better.. CXR shows bilateral infiltrates. O2 sat 95 on 2 L. No fever. Objective Vital Signs Date Time Temp Pulse Resp B/P (MAP) Pulse Ox O2 Delivery O2 Flow Rate FiO2 05/02/17 16:51 97.5 85 16 141/70 (93) 96 05/02/17 13:19 97.6 87 16 123/62 (82) 96 05/02/17 08:56 97.5 81 18 106/61 (76) 98 05/02/17 08:49 Nasal Cannula 4.00 05/02/17 08:34 96 Nasal Cannula 4.00 05/02/17 05:00 97.5 87 18 108/60 (76) 96 05/02/17 00:07 Nasal Cannula 6.00 05/02/17 00:00 97.1 51 18 136/98 (111) 95 05/01/17 20:00 97.2 98 20 118/88 (98) 95 05/01/17 19:29 95 Nasal Cannula 4.00 I/O 05/01/17 05/01/17 05/01/17 05/02/17 05/02/17 05/02/17 07:00 15:00 23:00 07:00 15:00 23:00 Intake Total 200 ml 340 ml 200 ml 100 ml 580 ml Balance 200 ml 340 ml 200 ml 100 ml 580 ml Intake Oral 240 ml 480 ml IV Total 200 ml 100 ml 200 ml 100 ml 100 ml # Voids 2 1 2 2 # Bowel Movements 0 1 1 Result Diagram: 05/01/17 0717 05/02/17 1000 Objective Remarks GENERAL: This is a well-built elderly white male who is pale, alert and in no acute distress. He is on oxygen via nasal cannula. HEAD, EYES, EARS, NOSE, THROAT: Head normocephalic. The pupils are reactive and equal.. Throat is clear. Nasal mucosa is clear. NECK: The neck is supple with no venous distention. No bruits. No thyroid enlargement. CHEST: Equal movements with distant breath sounds with crackles at the lung bases, more so on the right side. HEART: Heart sounds are regular. S1-S2. No murmur. No S3. ABDOMEN: Abdomen soft and scaphoid. The liver is just felt below the right costal margin. The bowel sounds are active. EXTREMITIES: No edema. Peripheral pulses are diminished. NEUROLOGIC: Reflexes are 1+. No gross motor deficits. Cranial nerves are grossly intact. RECTAL: Rectal exam is deferred. Assessment and Plan Assessment and Plan IMPRESSION: 1. Bilateral pulmonary infiltrates with possible atypical pneumonia and/or pulmonary edema. 2. Interstitial lung disease. 3. Non small cell lung cancer with metastatic disease status post chemotherapy. 4. Anemia of chronic disease. 5. COPD. 6. History of esophageal stricture with possible aspiration. 7. CHRIS Plan : 1. Cont Antibiotics, po Flagyl, Levaquin. 2. O2 2 L. 3. Nebs qid , duoneb. 4. Taper Solumedrol 40 mg IV q12h. 5. Continue Symbicort , 2 puffs bid 6. CBC,BMP in am 7. CPAP mask at HS . 8. CXR in am Radha Barger MD May 02, 2017 18:07
[2017-05-03] VITALS (11 sets, daily range): BP systolic 106–163; BP diastolic 61–90; PULSE 76–113; RESP 18–20; TEMP 96.7–97.7; O2SAT 91–97
[2017-05-03] MEDS: LEVOTHYROXINE SODIUM 50 MCG TAB PO SCH (05:02)
[2017-05-03] MEDS: metroNIDAZOLE 500 MG INJ 100 ML IV SCH ×2 (05:02→13:53)
[2017-05-03] MEDS: HEPARIN SODIUM - SQ 10,000 UNITS/ML VIAL SQ SCH ×2 (05:03→16:45)
--- NOTE | 2017-05-03 06:57 | RADRPT ---
EXAM DATE/TIME: 05/03/2017 05:48 [place] COMPARISON: CHEST SINGLE AP, May 01, 2017, 4:09. INDICATIONS : Short of breath, coughing, evaluate infiltrate MEDICAL HISTORY : Carcinoma, lung. Chronic obstructive pulmonary disease. Hypertension. pneumonia, sepsis SURGICAL HISTORY : partial lobectomy ENCOUNTER: Subsequent ACUITY: 3 days PAIN SCORE: 6/10 LOCATION: Bilateral chest FINDINGS: Bilateral consolidation again noted, midlung predominant on the right and basilar predominant with a [id number] pleural effusion on the left, both sides not significantly changed. No pneumothorax seen. Mild cardiomegaly is stable. Right internal jugular Hmxspp-g-Rzch catheter again seen with tip in the right atrium. CONCLUSION: No significant change. Darrel Lees MD on May 03, 2017 at 6:55 Board Certified Radiologist. This report was verified electronically.
[2017-05-03 07:52] LABS: AUTOMATED NEUTROPHIL # 10.8 TH/MM3 (1.8-7.7); HEMATOCRIT 36.9 % (39.0-51.0); HEMO FLAGS DIFF FINAL; LYMPH % 0.7 % (9.0-44.0); LYMPHOCYTE # 0.1 TH/MM3 (1.0-4.8); MEAN CELL VOLUME 94.3 FL (80.0-100.0); MEAN CORPUSCULAR HEMOGLOBIN 30.2 PG (27.0-34.0); MONO % 4.4 % (0.0-8.0); NEUT % 94.9 % (16.0-70.0); PLATELET COUNT 167 TH/MM3 (150-450); RED BLOOD COUNT 3.91 MIL/MM3 (4.50-5.90); RED CELL DISTRIBUTION WIDTH 17.7 % (11.6-17.2); WHITE BLOOD COUNT 11.4 TH/MM3 (4.0-11.0)
[2017-05-03] MEDS: INSULIN NovoLIN REGULAR SUPPLEMENTAL SCALE SQ SCH ×4 (08:00→21:41)
[2017-05-03] MEDS: RESP: ALBUTEROL 2.5 MG/IPRATROPIUM 0.5 MG NEB (SCH) NEB ×4 (08:14→19:06)
[2017-05-03 08:21] LABS: ANION GAP 10 MEQ/L (5-15); AST (GOT) 16 U/L (15-37); BICARBONATE 23.4 MEQ/L (21.0-32.0); BLOOD UREA NITROGEN 13 MG/DL (7-18); CHLORIDE 106 MEQ/L (98-107); GLOMERULAR FILTRATION RATE 139 ML/MIN (>89); POTASSIUM 3.6 MEQ/L (3.5-5.1); SODIUM (NA) 139 MEQ/L (136-145)
[2017-05-03 08:24] LABS: ALKALINE PHOSPHATASE 84 U/L (45-117); ALT (GPT) 9 U/L (12-78); TOTAL BILIRUBIN ADULT 0.5 MG/DL (0.2-1.0)
[2017-05-03] MEDS: DOCUSATE SODIUM 50 MG/SENNA 8.6 MG TAB PO SCH ×2 (09:00→21:43)
--- NOTE | 2017-05-03 09:54 | PD.ONC.PN ---
Subjective Subjective Remarks Afebrile overnight. Patient resting in bed in nad. No complaints. Feels breathing is improving. looking forward to working with physical therapy today. Objective Data Date Time Temp Pulse Resp B/P (MAP) Pulse Ox O2 Delivery O2 Flow Rate FiO2 05/03/17 08:16 95 Nasal Cannula 2.50 05/03/17 06:06 97.1 96 18 146/72 (96) 93 05/03/17 01:37 97.7 76 18 151/90 (110) 97 05/03/17 01:15 101 05/02/17 21:48 98.1 87 20 143/63 (89) 97 05/02/17 19:43 95 Nasal Cannula 2.50 05/02/17 19:30 Nasal Cannula 4.00 05/02/17 16:51 97.5 85 16 141/70 (93) 96 05/02/17 13:19 97.6 87 16 123/62 (82) 96 Result Diagram: 05/03/17 0659 05/03/1759 Laboratory Results Laboratory Tests Test 05/02/17 10:00 05/03/17 06:59 Blood Urea Nitrogen 14 MG/DL 13 MG/DL Creatinine 0.62 MG/DL 0.57 MG/DL Random Glucose 189 MG/DL 193 MG/DL Total Protein 7.0 GM/DL 6.7 GM/DL Calcium Level 7.3 MG/DL 7.6 MG/DL Sodium Level 137 MEQ/L 139 MEQ/L Potassium Level 3.8 MEQ/L 3.6 MEQ/L Chloride Level 105 MEQ/L 106 MEQ/L Carbon Dioxide Level 22.5 MEQ/L 23.4 MEQ/L Anion Gap 10 MEQ/L 10 MEQ/L Estimat Glomerular Filtration Rate 126 ML/MIN 139 ML/MIN Protein Corrected Calcium 7.4 MG/DL White Blood Count 11.4 TH/MM3 Red Blood Count 3.91 MIL/MM3 Hemoglobin 11.8 GM/DL Hematocrit 36.9 % Mean Corpuscular Volume 94.3 FL Mean Corpuscular Hemoglobin 30.2 PG Mean Corpuscular Hemoglobin Concent 32.0 % Red Cell Distribution Width 17.7 % Platelet Count 167 TH/MM3 Mean Platelet Volume 9.2 FL Neutrophils (%) (Auto) 94.9 % Lymphocytes (%) (Auto) 0.7 % Monocytes (%) (Auto) 4.4 % Eosinophils (%) (Auto) 0.0 % Basophils (%) (Auto) 0.0 % Neutrophils # (Auto) 10.8 TH/MM3 Lymphocytes # (Auto) 0.1 TH/MM3 Monocytes # (Auto) 0.5 TH/MM3 Eosinophils # (Auto) 0.0 TH/MM3 Basophils # (Auto) 0.0 TH/MM3 CBC Comment DIFF FINAL Differential Comment Albumin 2.8 GM/DL Alkaline Phosphatase 84 U/L Aspartate Amino Transf (AST/SGOT) 16 U/L Alanine Aminotransferase (ALT/SGPT) 9 U/L Total Bilirubin 0.5 MG/DL Culture Results Microbiology Date/Time Source Procedure Growth Status 04/30/17 21:50 Urine Clean Catch Legionella Antigen - Final PRESUMPTIVE NEGATIVE FOR LEGIONELLA P... Complete 04/30/17 21:50 Urine Clean Catch Streptococcus pneumoniae Antigen (M - Final PRESUMPTIVE NEGATIVE FOR STREPTOCOCCU... Complete Imaging Studies Last 24 hours Impressions Chest X-Ray 05/03/17 0600 Signed Impressions: Service Date/Time: Wednesday, May 03, 2017 05:48 - CONCLUSION: No significant change. Darrel Lees MD Administered Medications Medications (Trade) Dose Ordered Sig/Darron Route PRN Reason Start Time Stop Time Status Last Admin Dose Admin Sodium Chloride 1,000 ml @ 30 mls/hr Q24H IV 04/29/17 16:30 04/30/17 03:53 Heparin Sodium (Porcine) (Heparin Inj) 5,000 units Q12H SQ 04/29/17 17:00 05/03/17 05:03 Aspirin (Ecotrin Ec) 81 mg DAILY PO 04/30/17 09:00 05/02/17 09:45 Clopidogrel Bisulfate (Plavix) 75 mg DAILY PO 04/30/17 09:00 05/02/17 09:47 Acetaminophen/ Hydrocodone Bitart ([place] 5-325 Mg) 1 tab Q6H PRN PO PAIN 04/29/17 14:45 04/30/17 05:58 Levothyroxine Sodium (Synthroid) 50 mcg DAILY@0600 PO 04/30/17 06:00 05/03/17 05:02 Pantoprazole Sodium (Protonix) 40 mg DAILY PO 04/30/17 09:00 05/02/17 09:43 Pravastatin Sodium (Pravachol) 20 mg DAILY PO 04/30/17 09:00 05/02/17 09:46 Insulin Human Regular (NovoLIN R SUPPLEMENTAL SCALE) 1 ACHS SLIDING SCALE SQ 04/29/17 17:00 05/02/17 21:47 Metronidazole 100 ml @ 100 mls/hr Q8H IV 04/29/17 21:00 05/03/17 05:02 Albuterol/ Ipratropium (Duoneb Neb) 1 ampule QID NEB NEB 04/30/17 20:00 05/03/17 08:14 Methylprednisolone Sodium Succinate (SoluMEDROL INJ) 40 mg Q12HR IV PUSH 05/02/17 21:00 05/02/17 21:43 Objective Remarks GENERAL: Elderly male sitting up in chair eating breakfast in nad. SKIN: Warm and dry. HEAD: Normocephalic. EYES: No injection or drainage. NECK: Supple, trachea midline. CARDIOVASCULAR: IRR RESPIRATORY: diminished at bases. scattered rhonchi. On 2L O2 via [place] GASTROINTESTINAL: Abdomen soft, non-tender, nondistended. EXTREMITIES: No cyanosis NEUROLOGICAL: awake and alert, normal speech. Assessment/Plan Problem List: (1) Metastatic lung cancer (metastasis from lung to other site) ICD Codes: C34.90 - Malignant neoplasm of unspecified part of unspecified bronchus or lung Plan: --further treatment on outpatient basis after current conditions have resolved. History: --History of atw-ipaqs-olis lung cancer diagnosed at stage I; pT1 pN0 poorly differentiated adenocarcinoma. underwent left upper lobe lobectomy. --was a limited stage disease initially and was treated with concurrent chemotherapy (Carbo/VP16) and radiation treatments. 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 (3) Pneumonia ICD Codes: J18.9 - Pneumonia, unspecified organism Status: Acute Plan: --on Levaquin and Flagyl --BC, 04/29, no growth CTA on 04/29 showed groundglass opacities concerning for pneumonia or ARDS Assessment 76y/o male with metastatic pfn-vsood-lxvm lung cancer with neuroendocrine features, admitted with dyspnea. h/o Atrial fibrillation. Copd. Diabetes. Hypercholesterolemia Hypertension. Obstructive sleep apnea. Peripheral neuropathy DVT prophylaxis: Heparin q 12 on Plavix and ASA Plan 1. continue antibiotics 2. continue steroids 3. monitor CBC Attending Statement The exam, history, and the medical decision-making described in the above note were completed with the assistance of the mid-level provider. I reviewed and agree with the findings presented. I attest that I had a [id number] encounter with the patient on the same day, and personally performed and documented my assessment and findings in the medical record. Problem Qualifiers (1) Pneumonia: Qualified Codes: J18.9 - Pneumonia, unspecified organism Emily Gordon May 03, 2017 09:54 Gilbert Edwards MD May 03, 2017 21:14
[2017-05-03] MEDS: PRAVASTATIN SOD 20 MG TAB PO SCH (09:58)
[2017-05-03] MEDS: LEVOFLOXACIN 750 MG TAB PO SCH (09:59)
[2017-05-03] MEDS: PANTOPRAZOLE SOD 40 MG DELAYED RELEASE TAB PO SCH (09:59)
[2017-05-03] MEDS: CLOPIDOGREL 75 MG TAB PO SCH (10:00)
[2017-05-03] MEDS: LISINOPRIL 10 MG TAB PO SCH (10:01)
[2017-05-03] MEDS: ASPIRIN EC 81 MG TABEC PO SCH (10:01)
[2017-05-03] MEDS: methylPREDNISolone SOD SUCC 40 MG/1 ML VIAL IV PUSH SCH (10:02)
--- NOTE | 2017-05-03 10:27 | HHI.PR ---
Subjective Subjective Remarks sitting up in chair reading newspaper less SOB with activity, wants to walk some cough no cp appetite okay no fever oxygen at 2.5L/NC, sats 95 son at bsd Review of Systems Constitutional Constitutional Remarks 12 point ros completed, negative except as noted above Vitals/Results Vital Signs Vital Signs Date Time Temp Pulse Resp B/P (MAP) Pulse Ox O2 Delivery O2 Flow Rate FiO2 05/03/17 08:16 95 Nasal Cannula 2.50 05/03/17 08:00 97.1 100 20 121/61 (81) 94 05/03/17 06:06 97.1 96 18 146/72 (96) 93 05/03/17 01:37 97.7 76 18 151/90 (110) 97 05/03/17 01:15 101 05/02/17 21:48 98.1 87 20 143/63 (89) 97 05/02/17 19:43 95 Nasal Cannula 2.50 05/02/17 19:30 Nasal Cannula 4.00 05/02/17 16:51 97.5 85 16 141/70 (93) 96 05/02/17 13:19 97.6 87 16 123/62 (82) 96 CBC/BMP: 05/03/17 0659 05/03/17 0659 Lab Results Laboratory Tests Test 05/03/17 06:59 White Blood Count 11.4 TH/MM3 Red Blood Count 3.91 MIL/MM3 Hemoglobin 11.8 GM/DL Hematocrit 36.9 % Mean Corpuscular Volume 94.3 FL Mean Corpuscular Hemoglobin 30.2 PG Mean Corpuscular Hemoglobin Concent 32.0 % Red Cell Distribution Width 17.7 % Platelet Count 167 TH/MM3 Mean Platelet Volume 9.2 FL Neutrophils (%) (Auto) 94.9 % Lymphocytes (%) (Auto) 0.7 % Monocytes (%) (Auto) 4.4 % Eosinophils (%) (Auto) 0.0 % Basophils (%) (Auto) 0.0 % Neutrophils # (Auto) 10.8 TH/MM3 Lymphocytes # (Auto) 0.1 TH/MM3 Monocytes # (Auto) 0.5 TH/MM3 Eosinophils # (Auto) 0.0 TH/MM3 Basophils # (Auto) 0.0 TH/MM3 CBC Comment DIFF FINAL Differential Comment Blood Urea Nitrogen 13 MG/DL Creatinine 0.57 MG/DL Random Glucose 193 MG/DL Total Protein 6.7 GM/DL Albumin 2.8 GM/DL Calcium Level 7.6 MG/DL Alkaline Phosphatase 84 U/L Aspartate Amino Transf (AST/SGOT) 16 U/L Alanine Aminotransferase (ALT/SGPT) 9 U/L Total Bilirubin 0.5 MG/DL Sodium Level 139 MEQ/L Potassium Level 3.6 MEQ/L Chloride Level 106 MEQ/L Carbon Dioxide Level 23.4 MEQ/L Anion Gap 10 MEQ/L Estimat Glomerular Filtration Rate 139 ML/MIN Physical Exam General General Appearance: Well Developed, No Acute Distress, Comfortable Eyes Eye Exam: Pupils Equal, Pupils Reactive Ears & Nose Ears & Nose Exam: Nasal Mucosa [place] Throat Throat Exam: Oral Mucosa [place] & Moist Neck Neck Exam: Neck Supple, Trachea Midline Pulmonary Resp Exam: Breath Sounds Equal Resp Remarks scattered ronchi Cardiology CV Exam: Regular, Murmur Gastrointestinal/Abdomen GI Exam: Soft, Non-Tender, Bowel Sounds Present, Non-Distended Musculoskeletal MS Exam: Joints Intact Integumentary Skin Exam: Warm, Dry Extremeties Extremities Exam: No Edema, Pedal Pulses Palpable Neurologic Neuro Exam: Alert, Awake, Oriented, Speech Clear, Moving All Extremities, No Focal Deficits Psychiatric Psych Exam: Appropriate Responses VTE Prophylaxis VTE Prophylaxis Meds: Heparin Assessment/Plan Assessment/Plan Sepsis Bibasilar PNA -now on PO abx, follow cultures -Improving slowly, no fever. Cultures remain negative COPD Sleep apnea -continue supplemental oxygen -Duonebs -IV steroids-wean down steroids -Bipap at HS -appreciate pulm input -Repeat chest x-ray noted, no significant change Atrial fib, RVR, heart rate now controlled -continue with med management Metastatic lung cancer History of yln-yuvec-wyqq lung cancer diagnosed at stage I; pT1 pN0 poorly differentiated adenocarcinoma. underwent left upper lobe lobectomy. 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 History of head and neck cancer s/p concurrent radiation treatments with chemotherapy and is currently in remission. -Oncology following -speech therapy eval, recommendation noted, continued with thicken fluids, no cough noted Hyponatremia -Resolve, sodium 139 Hypocalcemia -Replace yesterday, calcium 7.6 DM, 2, non insulin dependent -Accu-Cheks before meals and at bedtime, ADA diet, monitor for medical management -blood glucose elevated, sec. to steroids Hx HTN, BP running low 100s -adjust Lisinopril Hx afib, stable -continue to monitor PPI for GI prophylaxis Heparin SQ for DVT prophylaxis DNR status Poor prognosis, pt. accepting of diagnosis. States he has 3 months, wants to live at peace at home. Has support from family. CM for DC planning PT eval out of bed to ambulate if tolerated Improving slowly, possible discharge 1-2 day Discussed with patient and son Discussed with nurse Discussed with Pt. was seen by myself and Dr. Bueno, this note is written on his behalf. Lara No May 03, 2017 10:27
[2017-05-03] MEDS: SODIUM CHLOR 0.9% 1000 ML INJ 1,000 ML IV SCH ×2 (11:19→19:00)
[2017-05-03] MEDS ORDERED: predniSONE 20 MG TAB PO ONE (15:30)
[2017-05-03] MEDS: CLINDAMYCIN 150 MG CAP PO SCH ×2 (18:11→23:36)
--- NOTE | 2017-05-03 20:21 | HHI.PR ---
Subjective Remarks He is improving. CXR stable. O2 sat 95 on 3 L. No fever. Objective Vital Signs Date Time Temp Pulse Resp B/P (MAP) Pulse Ox O2 Delivery O2 Flow Rate FiO2 05/03/17 19:50 106/69 (81) 05/03/17 16:00 97.3 113 20 133/67 (89) 97 05/03/17 15:13 94 Nasal Cannula 2.50 05/03/17 12:00 96.7 93 20 143/77 (99) 96 05/03/17 10:01 Nasal Cannula 4.00 05/03/17 08:16 95 Nasal Cannula 2.50 05/03/17 08:00 97.1 100 20 121/61 (81) 94 05/03/17 06:06 97.1 96 18 146/72 (96) 93 05/03/17 01:37 97.7 76 18 151/90 (110) 97 05/03/17 01:15 101 05/02/17 21:48 98.1 87 20 143/63 (89) 97 I/O 05/02/17 05/02/17 05/02/17 05/03/17 05/03/17 05/03/17 07:00 15:00 23:00 07:00 15:00 23:00 Intake Total 200 ml 100 ml 1315 ml 460 ml Balance 200 ml 100 ml 1315 ml 460 ml Intake Oral 480 ml 360 ml IV Total 200 ml 100 ml 835 ml 100 ml # Voids 2 2 2 2 # Bowel Movements 0 1 1 1 Result Diagram: 05/03/17 0659 05/03/17 0659 Objective Remarks GENERAL: This is a well-built elderly white male who is pale, alert and in no acute distress. He is on oxygen via nasal cannula. HEAD, EYES, EARS, NOSE, THROAT: Head normocephalic. The pupils are reactive and equal.. Throat is clear. Nasal mucosa is clear. NECK: The neck is supple with no venous distention. No bruits. No thyroid enlargement. CHEST: Equal movements with distant breath sounds with crackles at the lung bases, more so on the right side.Occ wheeze HEART: Heart sounds are regular. S1-S2. No murmur. No S3. ABDOMEN: Abdomen soft and scaphoid. The liver is just felt below the right costal margin. The bowel sounds are active. EXTREMITIES: No edema. Peripheral pulses are diminished. NEUROLOGIC: Reflexes are 1+. No gross motor deficits. Cranial nerves are grossly intact. RECTAL: Rectal exam is deferred. Assessment and Plan Assessment and Plan IMPRESSION: 1. Bilateral pulmonary infiltrates with possible atypical pneumonia and/or pulmonary edema. 2. Interstitial lung disease. 3. Non small cell lung cancer with metastatic disease status post chemotherapy. 4. Anemia of chronic disease. 5. COPD. 6. History of esophageal stricture with possible aspiration. 7. CHRIS Plan : 1. Cont Antibiotics, PO Levaquin. 2. O2 2 L. 3. Nebs qid , duoneb. 4. D/C Solumedrol and add Prednisone 40 mg daily. 5. Continue Symbicort , 2 puffs bid 6. Home in am 7. Cont CPAP mask at . Radha Barger MD May 03, 2017 20:21
[2017-05-03] MEDS: predniSONE 20 MG TAB PO SCH (21:44)
[2017-05-04 00:47] VITALS: BP 151/83; PULSE 88; RESP 20; TEMP 96; O2SAT 92
[2017-05-04] MEDS: HEPARIN SODIUM - SQ 10,000 UNITS/ML VIAL SQ SCH (05:18)
[2017-05-04] MEDS: LEVOTHYROXINE SODIUM 50 MCG TAB PO SCH (05:18)
[2017-05-04] MEDS: CLINDAMYCIN 150 MG CAP PO SCH ×2 (05:18→12:12)
[2017-05-04 06:27] VITALS: BP_SYST 116; BP_SYST 143; BP_DIAS 75; BP_DIAS 90; PULSE 90; RESP 20; TEMP 95.4; O2SAT 93
[2017-05-04 08:00] VITALS: BP 158/79; PULSE 92; RESP 20; TEMP 97.6; O2SAT 93
[2017-05-04] MEDS: INSULIN NovoLIN REGULAR SUPPLEMENTAL SCALE SQ SCH ×2 (08:00→12:00)
[2017-05-04 08:21] LABS: AUTOMATED NEUTROPHIL # 10.5 TH/MM3 (1.8-7.7); BASOPHIL % 0.2 % (0.0-2.0); HEMATOCRIT 37.5 % (39.0-51.0); HEMO FLAGS DIFF FINAL; LYMPH % 0.9 % (9.0-44.0); LYMPHOCYTE # 0.1 TH/MM3 (1.0-4.8); MEAN CELL VOLUME 93.2 FL (80.0-100.0); MEAN CORPUSCULAR HEMOGLOBIN 30.1 PG (27.0-34.0); MEAN CORPUSCULAR HGB CONC 32.2 % (32.0-36.0); MONO % 6.4 % (0.0-8.0); NEUT % 92.5 % (16.0-70.0); PLATELET COUNT 166 TH/MM3 (150-450); RED BLOOD COUNT 4.03 MIL/MM3 (4.50-5.90); WHITE BLOOD COUNT 11.3 TH/MM3 (4.0-11.0)
[2017-05-04] MEDS: RESP: ALBUTEROL 2.5 MG/IPRATROPIUM 0.5 MG NEB (SCH) NEB ×2 (08:29→12:00)
[2017-05-04 08:30] VITALS: O2SAT 92
[2017-05-04] MEDS: PANTOPRAZOLE SOD 40 MG DELAYED RELEASE TAB PO SCH (08:49)
[2017-05-04] MEDS: CLOPIDOGREL 75 MG TAB PO SCH (08:49)
[2017-05-04] MEDS: predniSONE 20 MG TAB PO SCH (08:49)
[2017-05-04] MEDS: LISINOPRIL 10 MG TAB PO SCH (08:50)
[2017-05-04] MEDS: DOCUSATE SODIUM 50 MG/SENNA 8.6 MG TAB PO SCH (08:50)
[2017-05-04] MEDS: LEVOFLOXACIN 750 MG TAB PO SCH (08:50)
[2017-05-04] MEDS: PRAVASTATIN SOD 20 MG TAB PO SCH (08:50)
[2017-05-04] MEDS: ASPIRIN EC 81 MG TABEC PO SCH (09:00)
--- NOTE | 2017-05-04 09:21 | PD.ONC.PN ---
Subjective Subjective Remarks Afebrile overnight. Patient feeling much improved. Eager to go home soon. Son at bedside. Minimal cough. Objective Data Date Time Temp Pulse Resp B/P (MAP) Pulse Ox O2 Delivery O2 Flow Rate FiO2 05/04/17 08:30 92 Nasal Cannula 3.00 05/04/17 08:00 97.6 92 20 158/79 (105) 93 05/04/17 06:27 95.4 90 20 143/75 (97) 93 116/90 (99) 05/04/17 00:47 96.0 88 20 151/83 (105) 92 05/03/17 23:25 106 05/03/17 20:07 Nasal Cannula 3.00 05/03/17 19:50 106/69 (81) 05/03/17 16:00 97.3 113 20 133/67 (89) 97 05/03/17 15:13 94 Nasal Cannula 2.50 05/03/17 12:00 96.7 93 20 143/77 (99) 96 05/03/17 10:01 Nasal Cannula 4.00 05/04/17 05/04/17 05/04/17 07:00 15:00 23:00 Intake Total 150 ml Balance 150 ml Result Diagram: 05/04/17 0749 05/03/17 0659 Laboratory Results Laboratory Tests Test 05/04/17 07:49 White Blood Count 11.3 TH/MM3 Red Blood Count 4.03 MIL/MM3 Hemoglobin 12.1 GM/DL Hematocrit 37.5 % Mean Corpuscular Volume 93.2 FL Mean Corpuscular Hemoglobin 30.1 PG Mean Corpuscular Hemoglobin Concent 32.2 % Red Cell Distribution Width 18.0 % Platelet Count 166 TH/MM3 Mean Platelet Volume 8.8 FL Neutrophils (%) (Auto) 92.5 % Lymphocytes (%) (Auto) 0.9 % Monocytes (%) (Auto) 6.4 % Eosinophils (%) (Auto) 0.0 % Basophils (%) (Auto) 0.2 % Neutrophils # (Auto) 10.5 TH/MM3 Lymphocytes # (Auto) 0.1 TH/MM3 Monocytes # (Auto) 0.7 TH/MM3 Eosinophils # (Auto) 0.0 TH/MM3 Basophils # (Auto) 0.0 TH/MM3 CBC Comment DIFF FINAL Differential Comment Administered Medications Medications (Trade) Dose Ordered Sig/Darron Route PRN Reason Start Time Stop Time Status Last Admin Dose Admin Sodium Chloride 1,000 ml @ 30 mls/hr Q24H IV 04/29/17 16:30 05/03/17 19:00 Heparin Sodium (Porcine) (Heparin Inj) 5,000 units Q12H SQ 04/29/17 17:00 05/04/17 05:18 Aspirin (Ecotrin Ec) 81 mg DAILY PO 04/30/17 09:00 05/03/17 10:01 Clopidogrel Bisulfate (Plavix) 75 mg DAILY PO 04/30/17 09:00 05/04/17 08:49 Acetaminophen/ Hydrocodone Bitart ([place]ron 5-325 Mg) 1 tab Q6H PRN PO PAIN 04/29/17 14:45 04/30/17 05:58 Levothyroxine Sodium (Synthroid) 50 mcg DAILY@0600 PO 04/30/17 06:00 05/04/17 05:18 Pantoprazole Sodium (Protonix) 40 mg DAILY PO 04/30/17 09:00 05/04/17 08:49 Pravastatin Sodium (Pravachol) 20 mg DAILY PO 04/30/17 09:00 05/04/17 08:50 Insulin Human Regular (NovoLIN R SUPPLEMENTAL SCALE) 1 ACHS SLIDING SCALE SQ 04/29/17 17:00 05/04/17 08:00 Albuterol/ Ipratropium (Duoneb Neb) 1 ampule QID NEB NEB 04/30/17 20:00 05/04/17 08:29 Lisinopril (Prinivil) 10 mg DAILY PO 05/03/17 09:00 05/04/17 08:50 Levofloxacin (Levaquin) 750 mg DAILY PO 05/03/17 09:00 05/04/17 08:50 Clindamycin HCl (Cleocin) 300 mg Q6HR PO 05/03/17 18:00 05/04/17 05:18 Prednisone (Deltasone) 20 mg BID PO 05/03/17 21:00 05/04/17 08:49 Objective Remarks GENERAL: Elderly male upright in chair next to bed in nad. on 2.5L O2 via nc SKIN: Warm and dry. HEAD: Normocephalic. EYES: No injection or drainage. NECK: Supple, trachea midline. CARDIOVASCULAR: IRR RESPIRATORY: diminished at bases. anterior gonzales clear. GASTROINTESTINAL: Abdomen soft, non-tender, nondistended. EXTREMITIES: No cyanosis NEUROLOGICAL: awake and alert, normal speech. Assessment/Plan Problem List: (1) Metastatic lung cancer (metastasis from lung to other site) ICD Codes: C34.90 - Malignant neoplasm of unspecified part of unspecified bronchus or lung Plan: --plan for outpatient follow up. History: --History of iyv-utvsm-rxxl lung cancer diagnosed at stage I; pT1 pN0 poorly differentiated adenocarcinoma. underwent left upper lobe lobectomy. --was a limited stage disease initially and was treated with concurrent chemotherapy (Carbo/VP16) and radiation treatments. 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 (3) Pneumonia ICD Codes: J18.9 - Pneumonia, unspecified organism Status: Acute Plan: --on Levaquin and Flagyl --BC, 04/29, no growth CTA on 04/29 showed groundglass opacities concerning for pneumonia or ARDS Assessment 76y/o male with metastatic per-jnxvf-ujrh lung cancer with neuroendocrine features, admitted with dyspnea. h/o Atrial fibrillation. Copd. Diabetes. Hypercholesterolemia Hypertension. Obstructive sleep apnea. Peripheral neuropathy DVT prophylaxis: Heparin q 12 on Plavix and ASA Plan 1. continue antibiotics + steroids. 2. once discharged, follow up in clinic. Attending Statement The exam, history, and the medical decision-making described in the above note were completed with the assistance of the mid-level provider. I reviewed and agree with the findings presented. I attest that I had a [id number] encounter with the patient on the same day, and personally performed and documented my assessment and findings in the medical record. Problem Qualifiers (1) Pneumonia: Qualified Codes: J18.9 - Pneumonia, unspecified organism Emily Gordon May 04, 2017 09:21 Gilbert Edwards MD May 23, 2017 20:53
[2017-05-04] MEDS ORDERED: PRED20 PO (10:33)
[2017-05-04] MEDS ORDERED: PRED10PA PO (10:33)
[2017-05-04] MEDS ORDERED: LEVA750T9 PO (10:33)
[2017-05-04] MEDS ORDERED: CLIN150 PO (10:33)
[2017-05-04] MEDS ORDERED: NEBULIZER/ADULT1 KIT (10:33)
[2017-05-04] MEDS ORDERED: IPRASOL NEB (10:33)
--- NOTE | 2017-05-04 10:34 | HHI.DCPOC ---
Discharge Care Plan Diagnosis: (1) Pneumonia Your Health Problems Are: Cough Shortness of Breath Goals to Promote Your Health * To prevent worsening of your condition and complications * To maintain your health at the optimal level Directions to Meet Your Goals Take your medications as prescribed Follow your dietary instruction Follow activity as directed Keep your appointments as scheduled Take your immunizations and boosters as scheduled If your symptoms worsen call your PCP, if no PCP go to Urgent Care Center or Emergency Room Smoking is Dangerous to Your Health. Avoid second hand smoke Call the 24-hour hour crisis hotline for domestic abuse at Lara No. [employer] EX[employer]OR May 04, 2017 10:34
[2017-05-04] MEDS ORDERED: LACTCHW3 CHEW (10:38)
--- NOTE | 2017-05-04 10:43 | HHI.PR ---
Subjective Subjective Remarks sitting up in chair reading newspaper states he feels much better less cough ambulated with PT yesterday and did well some cough no cp appetite okay no fever oxygen at 3L/NC, sats 93 son at bsd anxious to go home Review of Systems Constitutional Constitutional Remarks 12 point ros completed, negative except as noted above Vitals/Results Vital Signs Vital Signs Date Time Temp Pulse Resp B/P (MAP) Pulse Ox O2 Delivery O2 Flow Rate FiO2 05/04/17 08:30 92 Nasal Cannula 3.00 05/04/17 08:00 97.6 92 20 158/79 (105) 93 05/04/17 06:27 95.4 90 20 143/75 (97) 93 116/90 (99) 05/04/17 00:47 96.0 88 20 151/83 (105) 92 05/03/17 23:25 106 05/03/17 20:07 Nasal Cannula 3.00 05/03/17 19:50 106/69 (81) 05/03/17 16:00 97.3 113 20 133/67 (89) 97 05/03/17 15:13 94 Nasal Cannula 2.50 05/03/17 12:00 96.7 93 20 143/77 (99) 96 CBC/BMP: 05/04/17 0749 05/03/17 0659 Lab Results Laboratory Tests Test 05/04/17 07:49 White Blood Count 11.3 TH/MM3 Red Blood Count 4.03 MIL/MM3 Hemoglobin 12.1 GM/DL Hematocrit 37.5 % Mean Corpuscular Volume 93.2 FL Mean Corpuscular Hemoglobin 30.1 PG Mean Corpuscular Hemoglobin Concent 32.2 % Red Cell Distribution Width 18.0 % Platelet Count 166 TH/MM3 Mean Platelet Volume 8.8 FL Neutrophils (%) (Auto) 92.5 % Lymphocytes (%) (Auto) 0.9 % Monocytes (%) (Auto) 6.4 % Eosinophils (%) (Auto) 0.0 % Basophils (%) (Auto) 0.2 % Neutrophils # (Auto) 10.5 TH/MM3 Lymphocytes # (Auto) 0.1 TH/MM3 Monocytes # (Auto) 0.7 TH/MM3 Eosinophils # (Auto) 0.0 TH/MM3 Basophils # (Auto) 0.0 TH/MM3 CBC Comment DIFF FINAL Differential Comment Physical Exam General General Appearance: Well Developed, No Acute Distress, Comfortable Eyes Eye Exam: Pupils Equal, Pupils Reactive Ears & Nose Ears & Nose Exam: Nasal Mucosa [place] Throat Throat Exam: Oral Mucosa [place] & Moist Neck Neck Exam: Neck Supple, Trachea Midline Pulmonary Resp Exam: Breath Sounds Equal Resp Remarks faint ronchi with cough, mild exp. wheeze Cardiology CV Exam: Regular, Murmur Gastrointestinal/Abdomen GI Exam: Soft, Non-Tender, Bowel Sounds Present, Non-Distended Musculoskeletal MS Exam: Joints Intact Integumentary Skin Exam: Warm, Dry Extremeties Extremities Exam: No Edema, Pedal Pulses Palpable Neurologic Neuro Exam: Alert, Awake, Oriented, Speech Clear, Moving All Extremities, No Focal Deficits Psychiatric Psych Exam: Appropriate Responses VTE Prophylaxis VTE Prophylaxis Meds: Heparin Assessment/Plan Assessment/Plan Sepsis Bibasilar PNA -now on PO abx, follow cultures -Improving, no fever, minimal cough. Cultures negative COPD Sleep apnea -continue supplemental oxygen -Duonebs -on PO steroids, doing well -Bipap at HS -appreciate pulm input -ok to dc -Repeat chest x-ray noted, no significant change -improving, sats 92 on 3L/NC. Less cough, less sob Atrial fib, RVR, heart rate now controlled -continue with med management Metastatic lung cancer History of vjn-wzyal-uojx lung cancer diagnosed at stage I; pT1 pN0 poorly differentiated adenocarcinoma. underwent left upper lobe lobectomy. 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 History of head and neck cancer s/p concurrent radiation treatments with chemotherapy and is currently in remission. -Oncology following -speech therapy eval, recommendation noted, continued with thicken fluids, no cough noted Hyponatremia -Resolved, sodium 139 Hypocalcemia -Replace yesterday, calcium 7.6 DM, 2, non insulin dependent -Accu-Cheks before meals and at bedtime, ADA diet, monitor for medical management -blood glucose elevated, sec. to steroids Hx HTN, BP running low 100s -adjust Lisinopril Hx afib, stable -continue to monitor PPI for GI prophylaxis Heparin SQ for DVT prophylaxis DNR status Poor prognosis, pt. accepting of diagnosis. States he has 3 months, wants to live at peace at home. Has support from family. CM for DC planning PT, OOB daily Pt. stable for dc, no fever, SOB improved. Discharge home with HHC/PT set up nebulizer as well F/U Dr. Barger 2 weeks F/U Kr. Edwards 2 weeks Diet-heart healthy Activity-as tolerated Discussed with patient and son Discussed with nurse Discussed with Discussed with Pt. was seen by myself and Dr. Bueno, this note is written on his behalf. Discharge Minutes: 45 Lara No May 04, 2017 10:43
--- NOTE | 2017-05-04 10:44 | HHI.DS ---
Discharge Summary Admission Date Apr 29, 2017 at 14:45 Discharge Date: May 04, 2017 Admitting Diagnosis pneumonia, sepsis (1) Pneumonia ICD Codes: J18.9 - Pneumonia, unspecified organism Status: Acute (2) Metastatic lung cancer (metastasis from lung to other site) ICD Codes: C34.90 - Malignant neoplasm of unspecified part of unspecified bronchus or lung (3) S/P lobectomy of lung ICD Codes: Z90.2 - Acquired absence of lung [part of] Status: Acute (4) History of head and neck cancer ICD Codes: Z85.89 - Personal history of malignant neoplasm of other organs and systems (5) Atrial fibrillation, chronic ICD Codes: I48.2 - Chronic atrial fibrillation Status: Acute (6) Hypocalcemia ICD Codes: E83.51 - Hypocalcemia (7) Hyponatremia ICD Codes: E87.1 - Hypo-osmolality and hyponatremia (8) Sepsis ICD Codes: A41.9 - Sepsis, unspecified organism Status: Acute CBC/BMP: 05/04/17 0749 05/03/17 0659 Significant Findings Laboratory Tests Test 05/02/17 10:00 05/03/17 06:59 05/04/17 07:49 Random Glucose 189 MG/DL (74-106) 193 MG/DL (74-106) Calcium Level 7.3 MG/DL (8.5-10.1) 7.6 MG/DL (8.5-10.1) Protein Corrected Calcium 7.4 MG/DL (8.5-10.1) White Blood Count 11.4 TH/MM3 (4.0-11.0) 11.3 TH/MM3 (4.0-11.0) Red Blood Count 3.91 MIL/MM3 (4.50-5.90) 4.03 MIL/MM3 (4.50-5.90) Hemoglobin 11.8 GM/DL (13.0-17.0) 12.1 GM/DL (13.0-17.0) Hematocrit 36.9 % (39.0-51.0) 37.5 % (39.0-51.0) Red Cell Distribution Width 17.7 % (11.6-17.2) 18.0 % (11.6-17.2) Neutrophils (%) (Auto) 94.9 % (16.0-70.0) 92.5 % (16.0-70.0) Lymphocytes (%) (Auto) 0.7 % (9.0-44.0) 0.9 % (9.0-44.0) Neutrophils # (Auto) 10.8 TH/MM3 (1.8-7.7) 10.5 TH/MM3 (1.8-7.7) Lymphocytes # (Auto) 0.1 TH/MM3 (1.0-4.8) 0.1 TH/MM3 (1.0-4.8) Creatinine 0.57 MG/DL (0.60-1.30) Albumin 2.8 GM/DL (3.4-5.0) Alanine Aminotransferase (ALT/SGPT) 9 U/L (12-78) Imaging Last Impressions Chest X-Ray 05/03/17 0600 Signed Impressions: Service Date/Time: Wednesday, May 03, 2017 05:48 - CONCLUSION: No significant change. Darrel Lees MD CT Angiography 04/29/17 1207 Signed Impressions: Service Date/Time: Saturday, April 29, 2017 13:05 - CONCLUSION: 1. No CT evidence for pulmonary artery embolism as questioned. 2. Moderate interval progression of bilateral groundglass opacities since 04/22/2017 CT exam. These opacities were new at that time. Overall findings are concerning for progressive multilobar pneumonia, atypical pneumonia or developing ARDS. 3. Moderate upper lobe predominant centrilobular emphysema with postsurgical features of left lower lobectomy. 4. Grossly stable mediastinal adenopathy, cavitary 3 cm right basilar lung mass, and apparent hepatic metastasis. Travis Wills MD Hospital Course This is a pleasant 76-year-old white male who was being seen at his oncologist Dr. Ocampo for increased dyspnea and shortness of breath. The patient had been in his usual state of health up until approximately a week ago but noticed fever approximately 3 days ago, it was 101.7 according to the daughter. The patient also has had a chronic cough due to lung cancer, for several years but cough has increased over the past 2-3 days. He has also had a decreased to no appetite and very low p.o. intake for 3 days. The patient initially was brought into the emergency room and was hypotensive. Blood pressure systolic in the 80s and tachycardic, heart rate was as high as 130 but now is around 100 to 103. The patient is alert, able to answer simple questions. His son and daughter are with him and are given most of his history. According to the patient there was a concern that he may have a PE, This was ruled out per CT scan. The patient received his last chemotherapy approximately 2 months ago. The patient complains of chronic pain in his left lateral chest region. He has a significant history of throat cancer approximately 7 years ago diagnosed, was then diagnosed with lung cancer in 2016 which has metastasized to the liver. The patient has some tachypneic respirations but appears to be compensated with O2 at 2 liters. Denies any headache. He does complain of some weakness and fatigue. Was evaluated in the ED; DIAGNOSTIC DATA Sodium 130, potassium 4.2, chloride 96, carbon dioxide 24.4, amnion gap 10, BUN 15, creatinine 0.99, GFR 73, random glucose 125, lactic acid 2.7, calcium 8.3, magnesium 1.2, AST 23, ALT 11, alkaline phosphatase 106, total creatinine kinase 41. Troponin less than 0.02. Total protein 8.3, albumin 3.5. PT/INR 1.3, WBC count 6.7, RBC 4.34, hemoglobin 13.3, hematocrit 41, platelet count 145. RDW 18, neutrophil diff percentage auto 83.1. Lymphocyte 7.3, monocyte 9.4. IMAGING STUDIES Chest x-ray shows bilateral medial lower zone airspace disease left more prominent than the right. Differentials include pneumonia and aspiration, slightly more prominent small left-sided pleural effusion. CT angiography shows negative for PE. Bilateral ground glass opacities, since 04/22/2017 CT scan these opacities were new at that time. Other concerning findings are progressive multilobular pneumonia, atypical pneumonia and developing ARDS. Moderate upper lobe predominant emphysema with postsurgical features of the left lower lobectomy. Gross stable mediastinal adenopathy. Cavitary 3 cm right basilar lung mass and apparent hepatic metastasis. Pt. was admitted and during the course of the hospitalization the following took place: Admitted for Sepsis secondary to Bibasilar PNA -initially put on IVF, hydrated cautiously. Started on IV abx then escalated to PO when symptoms improved. -cultures remained negative -had follow up cxr COPD Sleep apnea -continued supplemental oxygen -Duonebs were ordered -put on IV steroida initially, then weaned to PO -continue Bipap at -pulm consulted. Input appreciated. -Repeated chest x-ray noted, no significant change -pt. improved, sats 92 on 3L/NC. Less cough, less sob Atrial fib, RVR, heart rate now controlled -initially HR elevated, improved as resp. distress resolved. -continued with med management Metastatic lung cancer History of [id number] lung cancer diagnosed at stage I; pT1 pN0 poorly differentiated adenocarcinoma. underwent left upper lobe lobectomy. 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 History of head and neck cancer s/p concurrent radiation treatments with chemotherapy and is currently in remission. -Oncology following -speech therapy eval, recommendation noted, continued with thicken fluids, no cough noted -pt to f/u oncology as OP Hyponatremia -Resolved, sodium 139 Hypocalcemia -Replaced, improved DM, 2, non insulin dependent -Accu-Cheks before meals and at bedtime, ADA diet, monitor for medical management -blood glucose elevated, sec. to steroids Hx HTN, BP running low 100s -adjusted Lisinopril Hx afib, stable -continued to monitor Was put on PPI for GI prophylaxis and Heparin SQ for DVT prophylaxis Pt. chose DNR status Pt. with poor prognosis, pt. accepting of diagnosis. States he has 3 months, wanted to live at peace at home. Had support from family. CM consult for DC planning, set up HHC, PT, and nebulizer PT ordered to work with pt. Ambulated Pt. stable for dc, no fever, SOB improved. Discharged home with HHC/PT set up nebulizer as well F/U Dr. Barger 2 weeks F/U Kr. Edwards 2 weeks Diet-heart healthy Activity-as tolerated Pt Condition on Discharge: Stable Discharge Disposition: Disch w/ Home Health Serv Discharge Instructions DIET: Follow Instructions for: Heart Healthy Diet Activities you can perform: Weight Bearing as Kenny Follow up Referrals: Oncology - 2 Weeks with GIANNA EDWARDS Pulmonology - 2 Weeks with Radha Barger MD New Medications: Lactobacillus Acidophilus (Lactinex) 1 Chew 1 TAB CHEW TID for Nutritional Supplement, #21 TAB 0 Refills Nebulizer/Adult Mask (Nebulizer/Adult Mask) 1 Kit Kit KIT .ROUTE DIRECTED for Breathing Treatment, #1 0 Refills Prednisone (21) 10 mg tab Dose Pack (Prednisone (21) 10 mg tab Dose Pack) 10 Mg Pack 10 MG PO DIRECTED for Inflammation, #1 DSPK 0 Refills Clindamycin (Cleocin) 150 Mg Cap 300 MG PO Q6HR for Infection, #30 CAP Ipratropium-Albuterol Neb (Duoneb) 0.5-2.5 Mg/3 Ml Neb 1 AMPULE NEB TID NEB PRN for WHEEZING, #30 ML Levofloxacin (Levaquin) 750 Mg Tablet 750 MG PO DAILY for Infection, #5 TAB Prednisone (Prednisone) 20 Mg Tab 20 MG PO BID for Broncospasm, #14 TAB Continued Medications: Aspirin DR (Ecotrin Low Strength) 81 Mg Tabdr 81 MG PO DAILY, #30 TAB 0 Refills Clopidogrel (Clopidogrel) 75 Mg Tab 75 MG PO DAILY for Blood Clot Prevention, #30 TAB 0 Refills Furosemide (Lasix) 40 Mg Tab 20 MG PO BID@09,18 for edema, #60 TAB Hydrocodone-Acetaminophen ([place]) 5-325 mg Tab 1 TAB PO Q6H PRN for PAIN, #20 TAB 0 Refills Indomethacin (Indomethacin) 25 Mg Cap 25 MG PO TID for 5 Days, CAP 0 Refills Take with food, milk, or antacids to decrease stomach adverse effects. Levothyroxine (Levothyroxine) 50 Mcg Tab 50 MCG PO DAILY for Thyroid, #30 TAB 0 Refills Lisinopril (Lisinopril) 20 Mg Tab 20 MG PO DAILY, #30 TAB 0 Refills Metformin (Metformin) 1,000 Mg Tab 1000 MG PO BIDPC for Blood Sugar Management, #60 TAB 0 Refills With meals Pantoprazole (Pantoprazole) 40 Mg Tab 40 MG PO DAILY for gastritis, #30 TAB Simvastatin (Simvastatin) 10 Mg Tab 10 MG PO DAILY for Cholesterol Management, #30 TAB 0 Refills Lara No May 04, 2017 10:44
[2017-05-04 12:16] VITALS: BP 131/57; PULSE 99; RESP 20; TEMP 97.3; O2SAT 93
== END 2017-05-04 14:24 | disposition home health service (06) | DRG 871 ==
LOC: NEPC 11:55 → NEDA 14:45 → N05A 16:44
PROVIDERS: ADMIT Specialist; ATTEND Specialist
DX: A41.9 Sepsis, unspecified organism (principal); J18.9 Pneumonia, unspecified organism; J84.9 Interstitial pulmonary disease, unspecified; C78.7 Secondary malignant neoplasm of liver and intrahepatic bile duct; J44.0 Chronic obstructive pulmonary disease with (acute) lower respiratory infection; G62.9 Polyneuropathy, unspecified; D69.59 Other secondary thrombocytopenia; E83.39 Other disorders of phosphorus metabolism; I48.2 Chronic atrial fibrillation; E87.1 Hypo-osmolality and hyponatremia; E83.51 Hypocalcemia; E11.9 Type 2 diabetes mellitus without complications; R09.02 Hypoxemia; Z85.118 Personal history of other malignant neoplasm of bronchus and lung; Z90.2 Acquired absence of lung [part of]; Z92.21 Personal history of antineoplastic chemotherapy; Z85.819 Personal history of malignant neoplasm of unspecified site of lip, oral cavity, and pharynx; Z92.3 Personal history of irradiation; G47.33 Obstructive sleep apnea (adult) (pediatric); I10 Essential (primary) hypertension; Z66 Do not resuscitate; I25.10 Atherosclerotic heart disease of native coronary artery without angina pectoris; E78.5 Hyperlipidemia, unspecified; Z87.891 Personal history of nicotine dependence; D63.8 Anemia in other chronic diseases classified elsewhere; E66.9 Obesity, unspecified; Z68.28 Body mass index [BMI] 28.0-28.9, adult
CPT/HCPCS: 36600; 71010; 71275; 76937; 80048; 80053; 81001; 82550; 82805; 82948; 83605; 83735; 84100; 84155; 84484; 85025; 85027; 85610; 85730; 87040; 87449; 93005; 94640; 94664; 96360; 99212; 99214; G0463; J0610; J0692; J1644; J1956; J2920; J3475; J7030; J7512; Q9967